=== PATIENT | female | born 1975 | race Caucasian/White ===

== ENCOUNTER → 2016-08-10 | Outpatient (CLI) | payer BC, OTHER ==
--- NOTE | 2016-08-10 15:16 | CT ---
CT CHEST FOR PULMONARY EMBOLISM. EXAMINATION TYPE: CT angio chest DATE OF EXAM: 08/10/2016 3:10 PM INDICATION: Cough x [address] DLP: 127.80 mGycm, Automated exposure control for dose reduction was used. CONTRAST: Patient injected with 54 mL of Omnipaque 350. COMPARISON: NONE TECHNIQUE: CT of the chest is performed on a spiral scan at 2 mm thick sections. Study is performed with intravenous contrast timed for evaluation for pulmonary embolism. This will limit additional po rtions of the evaluation. 3-D MIP images reconstructed by the technologist are reviewed on the compu ter in the coronal and sagittal planes. FINDINGS: No persistent filling defects are evident to suggest an acute pulmonary embolism. Bilateral breast prostheses are present. No mediastinal or hilar adenopathy enlarged by CT criteria is evident. The ascending aorta diameter at the level of the main pulmonary artery is 3.2 cm. The main pulmonary artery diameter at the bifur cation is 2.2 cm. Lung windows are clear. Limited CT section through the upper abdomen are unremarkable. IMPRESSIONS: 1. No acute pulmonary embolism.
== END ==
LOC: RADCTMAIN 14:49
PROVIDERS: ATTEND Family Medicine
DX: R05 Cough (principal); R06.02 Shortness of breath; R00.0 Tachycardia, unspecified
CPT/HCPCS: 71275; Q9967

== ENCOUNTER → 2016-09-28 | Day surgery (SDC) | payer BC ==
[2016-09-24 08:44] VITALS: BMI 24.5
[~2016-09-28] MED LIST: SODIUM CHLORIDE 0.9% 1,000 ML IV SCH
[2016-09-28 08:44] VITALS: RESP 18
[2016-09-28 13:03] VITALS: BP 140/75; PULSE 68; TEMP 98.2
--- NOTE | 2016-09-28 14:30 | P.PCN ---
Preoperative Diagnosis: Twelve-lead ECG report Sinus rhythm, sinus arrhythmia, normal SC, narrow QRS, normal ST segments, normal QT interval, 78 bpm Tilt table test report Baseline blood pressure 135/69 mmHg, Baseline heart rate 87 beats a minute Patient underwent standard tilt table testing. No change in heart rate a blood pressure no neurocardiogenic syncope no evidence for orthostatic intolerance or dysautonomia Baseline heart rates in the 80s upright heart rates between 90 bpm and 110 beats a minute, asymptomatic Normal heart rate and blood pressure response to upright tilting Impression Resting heart rates are well controlled with nadolol 30 mg by mouth daily Patient has a history of inappropriate sinus tachycardia. This appears well controlled on nadolol at this time There is no evidence for orthostatic intolerance There is no evidence for neurocardiogenic syncope If nadolol feels in the future, IVABRADINE should be considered Postoperative Diagnosis: Procedure(s) Performed: Implants: Anesthesia: none Disposition: same day Indications for Procedure: Operative Findings: Description of Procedure:
--- NOTE | 2016-09-28 15:27 | LTR ---
September 28, 2016 RE: Aileen Gomez Dear Max; I had the pleasure of seeing Aileen Gomez in electrophysiology followup. As you know, Aileen has a history consistent with inappropriate sinus tachycardia. She is on Nadolol and was complaining of palpitations. She was brought in for a tilt table test. The tilt table test showed that her resting heart rates are very well-controlled in the 70s and 80s. There is no evidence for neurocardiogenic syncope. There was no evidence for orthostatic intolerance or dysautonomia. I have suggested that she continue to use Nadolol at 30 mg p.o. daily, which is her current dose and it seems to be controlling her symptoms as well as resting heart rates quite well. Thank you for entrusting me with the care of your patient. Warm regards. Sincerely, AMANDA AVERY MD
== END ==
LOC: CATHEP 08:23
PROVIDERS: ATTEND Internal Medicine Clinical Cardiac Electrophysiology
DX: R00.0 Tachycardia, unspecified (principal); I10 Essential (primary) hypertension; Z79.899 Other long term (current) drug therapy
CPT/HCPCS: 81025; 93005; 93660

== ENCOUNTER → 2016-11-25 | Outpatient (CLI) | payer BC | END | disposition home or self-care (01) | LOC: LABWHC1 13:45 | PROVIDERS: ATTEND Otolaryngology | DX: J30.89 Other allergic rhinitis (principal) | CPT/HCPCS: 36415 ==

== ENCOUNTER → 2016-12-22 | Outpatient (CLI) | payer BC ==
[2016-12-24 12:07] LABS: Crab IgE <0.35 kU/L (<0.35); Crab IgE Class CLASS 0; Lettuce IgE Class CLASS 0
[2016-12-24 12:08] LABS: Pork IgE Class CLASS 0
[2016-12-24 12:09] LABS: Beef IgE <0.35 kU/L (<0.35); Beef IgE Class CLASS 0; Salmon IgE <0.35 kU/L (<0.35); Salmon IgE Class CLASS 0
[2016-12-24 12:11] LABS: Celery IgE <0.35 kU/L (<0.35); Celery IgE Class CLASS 0; Chicken IgE Class CLASS 0; Gluten IgE Class CLASS 0; Lobster IgE <0.35 kU/L (<0.35); Lobster IgE Class CLASS 0; Oat IgE Class CLASS 0; Onion IgE <0.35 kU/L (<0.35); Onion IgE Class CLASS 0; Yeast Bakers/Brew IgE <0.35 kU/L (<0.35); Yeast Bakers/Brew IgE Class CLASS 0
[2016-12-24 12:12] LABS: Chocolate IgE Class CLASS 0; Cow's Milk IgE Class CLASS 0; Egg White IgE <0.35 kU/L (<0.35); Latex IgE Class CLASS 0; Peanut IgE <0.35 kU/L (<0.35); Potato IgE <0.35 kU/L (<0.35); Potato IgE Class CLASS 0; Soybean IgE <0.35 kU/L (<0.35)
[2016-12-24 12:13] LABS: Coffee IgE <0.35 kU/L (<0.35); Coffee IgE Class CLASS 0; Tea IgE <0.35 kU/L (<0.35); Tea IgE Class CLASS 0
== END | disposition home or self-care (01) ==
LOC: LABWHC1 11:44
PROVIDERS: ATTEND Otolaryngology
DX: L50.0 Allergic urticaria (principal)
CPT/HCPCS: 36415; 86003

== ENCOUNTER → 2017-01-30 | Outpatient (CLI) | payer BC ==
--- NOTE | 2017-01-30 11:21 | MR ---
EXAMINATION TYPE: MR brain wo/w con DATE OF EXAM: 01/30/2017 COMPARISON: NONE HISTORY: EDGE, PAIN AND NUMBNESS ON LEFT SIDE OF HEAD TECHNIQUE: Multiplanar, multisequence images of the brain and brainstem is performed without and with IV contras t, utilizing 6 mL intravenous Gadavist . FINDINGS: Diffusion weighted images demonstrate no evidence of a recent infarct or other diffusion ab normality. There is no extra-axial fluid collection or significant white matter signal abnormality. The ventricular system and cisternal spaces are normal in size and appearance. The brain volume is age appropriate. Midline structures demonstrate normal morphology. The craniocervical junction appears within normal limits. Post contrast images demonstrate no abnormal enhancement. The dural venous sinuses appear pa tent. There is mild chronic sinusitis and the globes are intact. IMPRESSION: 1. Mild chronic sinusitis.
== END | disposition home or self-care (01) ==
LOC: RADMRIMAIN 09:06
PROVIDERS: ATTEND Nurse Practitioner Family
DX: R42 Dizziness and giddiness (principal); G31.84 Mild cognitive impairment of uncertain or unknown etiology; R51 Headache
CPT/HCPCS: 70553; A9581

== ENCOUNTER → 2017-06-21 | Outpatient (CLI) | payer BC ==
[2017-06-22 11:43] LABS: Alt. alternata IgE Class CLASS III; Asperg. fumagatus IgE <0.35 kU/L (<0.35); Asperg. fumagatus IgE Class CLASS 0; Bermuda Grass IgE <0.35 kU/L (<0.35); Birch(Com.Silvr) IgE <0.35 kU/L (<0.35); Birch(Com.Silvr) IgE Class CLASS 0; Cat Epith & Dander IgE <0.35 kU/L (<0.35); Cat Epith & Dander IgE Class CLASS 0; Clad herbarum IgE <0.35 kU/L (<0.35); Cockroach IgE <0.35 kU/L (<0.35); Cottonwood IgE <0.35 kU/L (<0.35); Dermato. Pteronyssinus IgE 9.84 kU/L (<0.35); Dermato. farinae IgE 6.88 kU/L (<0.35); Dermato. farinae IgE Class CLASS III; Dog Dander IgE <0.35 kU/L (<0.35); Elm IgE <0.35 kU/L (<0.35); Maple (Box Elder) IgE <0.35 kU/L (<0.35); Maple (Box Elder) IgE Class CLASS 0; Mountain Cedar IgE <0.35 kU/L (<0.35); Mountain Cedar IgE Class CLASS 0; Mouse Urine IgE Class CLASS 0; Nettle IgE <0.35 kU/L (<0.35); Nettle IgE Class CLASS 0; Oak IgE <0.35 kU/L (<0.35); Penicillium notatum IgE Class CLASS II; Rough Marshelder IgE <0.35 kU/L (<0.35); Rough Marshelder IgE Class CLASS 0; Timothy Grass IgE <0.35 kU/L (<0.35); White Ash IgE Class CLASS 0
[2017-06-29 19:53] LABS: Alternaria Alternata IgG < 2.0 mcg/mL (< 13.6); Aspergillus fumigatus IgG Not detected (Not detected); Aureobasidium pullulans IgG 2.4 mcg/mL (< 13.6); Cladosporium herbarium IgG 6.7 mcg/mL (< 14.7); Phoma ssp. IgG 2.9 mcg/mL (< 6.6); Saccaharomospora viridis Not detected (Not detected); Saccaharopoly. rectivirgula Not detected (Not detected)
== END | disposition home or self-care (01) ==
LOC: LABWHC1 16:57
PROVIDERS: ATTEND Internal Medicine Sleep Medicine
DX: B44.81 Allergic bronchopulmonary aspergillosis (principal)
CPT/HCPCS: 36415; 82785; 86001; 86003; 86606; 86609

== ENCOUNTER → 2017-07-13 | Outpatient (CLI) | payer BC ==
[2017-07-13 17:36] LABS: Basophils # (A) 0.1 k/uL (0-0.2); Basophils % (A) 1 %; Eosinophils # (A) 0.2 k/uL (0-0.7); Eosinophils % (A) 3 %; HCT 42.5 % (34.0-46.0); HGB 14.5 gm/dL (11.4-16.0); Lymphocytes # (A) 2.6 k/uL (1.0-4.8); Lymphocytes % (A) 29 %; MCH 29.8 pg (25.0-35.0); MCHC 34.1 g/dL (31.0-37.0); MCV 87.5 fL (80.0-100.0); Mean Platelet Volume 6.6; Monocytes # (A) 0.6 k/uL (0-1.0); Monocytes % (A) 7 %; Neutrophils # (A) 5.4 k/uL (1.3-7.7); Neutrophils % (A) 59 %; Platelet Count 273 k/uL (150-450); RBC 4.85 m/uL (3.80-5.40); RDW 12.9 % (11.5-15.5)
== END | disposition home or self-care (01) ==
LOC: LABWHC1 17:12
PROVIDERS: ATTEND Internal Medicine Sleep Medicine
DX: J45.50 Severe persistent asthma, uncomplicated (principal)
CPT/HCPCS: 36415; 85025

== ENCOUNTER 2017-07-14 12:25 | Day surgery (SDC) | payer BC ==
[2017-07-13 11:19] VITALS: BMI 25.4
[~2017-07-14 12:25] MED LIST changes: +LACTATED RINGERS 1,000 ML IV SCH; +Pre Op ABX Message 1 EACH MISC MISCELLANE ONE; -SODIUM CHLORIDE 0.9% 1,000 ML IV SCH
[2017-07-14] MEDS ORDERED: LIDOCAINE 1% 20 ML VIAL (10MG/ML) FOR IV START INTRADERMA ONE (12:31)
[2017-07-14 12:42] VITALS: TEMP 97.3
[2017-07-14] MEDS ORDERED: PROPOFOL 10 MG/ML 20 ML VIAL IV ONE (13:45)
[2017-07-14] MEDS ORDERED: MIDAZOLAM 2 MG/2 ML VIAL ONE (13:45)
[2017-07-14] MEDS ORDERED: LIDOCAINE 1% INJ 10MG/ML (20 ML MDV) ONE (13:45)
[2017-07-14 14:39] VITALS: BP 120/68; PULSE 84; RESP 18
--- NOTE | 2017-07-14 20:33 | P.PCN ---
Date of Procedure: 07/14/17 Preoperative Diagnosis: Recurrent pneumonia, chronic cough and shortness of breath, multiple courses of antibiotics and the steroids in the past Postoperative Diagnosis: As above Procedure(s) Performed: #1 bronchoscopy, #2 bronchoalveolar lavage Anesthesia: other Surgeon: Milton Garcia Estimated Blood Loss (ml): 0 Condition: stable Disposition: same day Indications for Procedure: Recurrent pneumonia, chronic cough and shortness of breath and wheezing, history of multiple course of antibiotics and steroid use Operative Findings: As below Description of Procedure: Bronchoscope was passed through the right nares, the vocal cords were normal structure and function tip of the scope was has beyond the vocal cords diffuse right heme and edema was present in tracheobronchial tree, scattered mucous plugs were seen no endobronchial mass or lesion was identified tip of the scope was wedged in the right upper lobe BAL was performed followed by BAL of the right lower lobe and left lower lobe, patient tolerated the procedure well no complication noted
== END 2017-07-14 14:56 | disposition home or self-care (01) ==
LOC: ORWHC2ENDO 12:25
PROVIDERS: ATTEND Internal Medicine Sleep Medicine
DX: J18.9 Pneumonia, unspecified organism (principal); J45.909 Unspecified asthma, uncomplicated; G47.00 Insomnia, unspecified; F41.1 Generalized anxiety disorder; R00.0 Tachycardia, unspecified; M41.9 Scoliosis, unspecified; I10 Essential (primary) hypertension; K21.9 Gastro-esophageal reflux disease without esophagitis; Z79.51 Long term (current) use of inhaled steroids; Z79.899 Other long term (current) drug therapy; Z88.8 Allergy status to other drugs, medicaments and biological substances; Z91.030 Bee allergy status; Z87.891 Personal history of nicotine dependence
CPT/HCPCS: 81025; 87798 ×4; 87541; 87496; 87498; 87529 ×2; 88108; 88305; 87252; 87502; 87634; 87070; 87205; 87116; 87102; 87206; 87299; 31624; J2250; J2001; J2704

== ENCOUNTER → 2017-07-19 | Outpatient (CLI) | payer BC ==
--- NOTE | 2017-07-19 14:54 | US ---
EXAMINATION TYPE: US thyroid st tissue head/neck DATE OF EXAM: 07/19/2017 COMPARISON: Thyroid ultrasound March 13, 2016. CLINICAL HISTORY: E07.9 Disorder of thyroid. GLAND SIZE: Right Lobe: 4.0 x 1.6 x 1.6 cm Overall Parenchyma: homogenous Left Lobe: 3.8 x 1.2 x 1.3 cm Overall Parenchyma: homogeneous Isthmus Thickness: 0.4 cm NODULES RIGHT: # of nodules measured on right: 0 LEFT: # of nodules measured on left: 0 ISTHMUS: # of nodules measured in the isthmus: 0 Bilateral neck scanned, no evidence of lymphadenopathy. Internal, mobile echoes are noted in left IJV with primarily reverse color flow and reverse Doppler V enous Flow is documented and as compared to normal flow direction in Right IJV. Radiologist was tristian CRISTOBAL Thyroid gland is somewhat small in size and homogeneous in appearance without suspicious nodule. IMPRESSION: Small size thyroid redemonstrated and stable. No suspicious nodules. Incidental abnormal reversed blo od flow in left internal jugular vein. Complete left upper extremity venous ultrasound is ordered to further evaluate. A Yellow level critical message alert has been initiated for Sravan Sam III, MD via the [employer] Critical Results System on 07/19/2017 2:51 PM. This message alert has been sent to Sravan Sam III, MD via the preferences provided by the clinician for the receipt of Radiology Critical Findings. Message ID [id number].
--- NOTE | 2017-07-19 15:32 | US ---
EXAMINATION TYPE: US venous doppler duplex UE LT DATE OF EXAM: 07/19/2017 COMPARISON: CTA chest August 10, 2016. MRI brain January 30, 2017. Thyroid ultrasound earlier today. CLINICAL HISTORY: I82.622. IJV internal echoes with reverse flow direction; coughing x 1 year, histor y of inappropriate sinus tachycardia, severe headache today per patient. Abnormal thyroid ultrasound. SIDE PERFORMED: left per Dr Shepherd Left Arm: non occluding wall echoes at lower IJV and may be at valve site with internal echoes noted moving cephalad (Rouleaux effect) in left IJV. Color flow direction is reversed for majority of Color flow observation. Pulsed Wave Doppler is reversed flow and is compared to normal flow direction in R ight IJV. Remainder of left upper extremity venous system show satisfactory blood flow, phasicity, and compress ibility. IMPRESSION: Possible external compression or more central stenosis in the left central thoracic veins. Patient i s asymptomatic. Consider contrast-enhanced chest CT to further evaluate. Case discussed with primary care physician at time of dictation. Patient to have short-term follow-up in office.
== END | disposition home or self-care (01) ==
LOC: RADUSWWP 13:35
PROVIDERS: ATTEND Family Medicine
DX: E07.9 Disorder of thyroid, unspecified (principal); R93.8 Abnormal findings on diagnostic imaging of other specified body structures
CPT/HCPCS: 76536; 87070; 87102; 87116; 87205; 87206; 87252; 87496; 87498; 87502; 87529; 87634; 87798

== ENCOUNTER 2017-07-23 13:28 | Inpatient (IN) | payer BC ==
[2017-07-23 14:03] LABS: Glucose,Whole Blood 122 mg/dL (75-99)
[2017-07-23] MEDS ORDERED: SODIUM CHLORIDE 0.9% 1,000 ML IV STA ×2 (14:08)
[2017-07-23] MEDS ORDERED: SODIUM CHLORIDE 0.9% 500 ML IV STA (14:08)
[2017-07-23] MEDS ORDERED: LORazepam 2 MG/ML INJ IV STA (14:08)
[2017-07-23] MEDS ORDERED: RX INFO: IV CONTRAST WAS GIVEN 1 EACH MISC MISCELLANE PRN (14:09)
[2017-07-23] MEDS ORDERED: levETIRAcetam IV 1,500 MG in SALINE 1 100ML.BAG IVPB STA (14:09)
[2017-07-23] MEDS ORDERED: diphenhydrAMINE 50 MG/ML 1 ML VIAL IVP STA (14:10)
[2017-07-23] MEDS ORDERED: FAMOTIDINE 20 MG/2 ML VIAL IV STA (14:10)
[2017-07-23 14:42] LABS: Basophils # (A) 0.1 k/uL (0-0.2); Basophils % (A) 1 %; Eosinophils # (A) 0.1 k/uL (0-0.7); Eosinophils % (A) 1 %; HCT 43.6 % (34.0-46.0); HGB 14.5 gm/dL (11.4-16.0); Lymphocytes # (A) 1.7 k/uL (1.0-4.8); Lymphocytes % (A) 18 %; MCH 29.8 pg (25.0-35.0); MCHC 33.4 g/dL (31.0-37.0); MCV 89.3 fL (80.0-100.0); Mean Platelet Volume 8.1; Monocytes # (A) 0.5 k/uL (0-1.0); Monocytes % (A) 5 %; Neutrophils # (A) 6.8 k/uL (1.3-7.7); Neutrophils % (A) 73 %; Platelet Count 280 k/uL (150-450); RBC 4.88 m/uL (3.80-5.40); RDW 12.8 % (11.5-15.5); WBC 9.3 k/uL (3.8-10.6)
[2017-07-23 14:51] LABS: Partial Thromboplastin Time 22.8 sec (22.0-30.0); Prothrombin Time 10.1 sec (9.0-12.0)
[2017-07-23 14:59] LABS: ALT 24 U/L (9-52); AST 23 U/L (14-36); Alkaline Phosphatase 71 U/L (38-126); Anion Gap 23 mmol/L; Blood Urea Nitrogen 11 mg/dL (7-17); Calcium 10.4 mg/dL (8.4-10.2); Carbon Dioxide 15 mmol/L (22-30); Chloride 103 mmol/L (98-107); Glucose 127 mg/dL (74-99); Magnesium 1.9 mg/dL (1.6-2.3); Phosphorus 1.8 mg/dL (2.5-4.5); Potassium 3.7 mmol/L (3.5-5.1); Sodium 141 mmol/L (137-145); Total Bilirubin 1.1 mg/dL (0.2-1.3); Total Protein 7.9 g/dL (6.3-8.2)
[2017-07-23 15:09] LABS: Creatine Kinase 66 U/L (30-135)
[2017-07-23 15:21] LABS: Creatine Kinase MB 0.2 ng/mL (0.0-2.4); Troponin I <0.012 ng/mL (0.000-0.034)
--- NOTE | 2017-07-23 15:30 | ED ---
General Adult HPI - General Chief complaint: Dizziness Stated complaint: Elevated BP Time Seen by Provider: 07/23/17 13:49 Source: patient, RN notes reviewed, old records reviewed Mode of arrival: ambulatory Limitations: no limitations - History of Present Illness Initial comments: This is a 42-year-old female the ER for evaluation regarding unresponsiveness. Patient not acting appropriately here in the hospital. Her patient a CAT scan earlier today to evaluate thyroid he thinks, patient is STILL unresponsive. Patient has no history of seizure, did have headache this morning when she awoke. Patient is unable to give history, history obtained from - Related Data Home Medications Medication Instructions Recorded Confirmed ALPRAZolam [Xanax] 0.25 mg PO HS PRN 09/24/16 07/23/17 Levocetirizine Dihydrochloride 5 mg PO HS 09/24/16 07/23/17 [Xyzal] Montelukast [Singulair] 10 mg PO HS 09/24/16 07/23/17 Norethindrone AC-Eth Estradiol 1 each PO HS 09/24/16 07/23/17 [Loestrin 21 1-20 Tablet] Albuterol Sulfate [Proair 1 puff PO QID PRN 07/13/17 07/23/17 Respiclick] Diltiazem HCl 30 mg PO BID PRN 07/13/17 07/23/17 FLUoxetine HCL [PROzac] 20 mg PO DAILY 07/13/17 07/23/17 Allergies Allergy/AdvReac Type Severity Reaction Status Date / Time No Known Allergies Allergy Verified 07/23/17 14:27 Review of Systems ROS Statement: Those systems with pertinent positive or pertinent negative responses have been documented in the HPI. ROS Other: All systems not noted in ROS Statement are negative. Past Medical History Past Medical History: No Reported History Additional Past Medical History / Comment(s): CHEST PAIN, RAPID HEARTBEAT, COUGH AND SHORTNESS OF BREATH-POSSIBLE LUNGS History of Any Multi-Drug Resistant Organisms: None Reported Past Surgical History: Adenoidectomy, Breast Surgery, Section Additional Past Surgical History / Comment(s): BILATERAL CARPAL TUNNEL RELEASE, SINUS SX, BILATERAL BREASTS IMPLANTS Past Anesthesia/Blood Transfusion Reactions: No Reported Reaction Past Psychological History: Anxiety Smoking Status: Former smoker Past Alcohol Use History: None Reported Past Drug Use History: None Reported - Past Family History Mother Family Medical History: No Reported History General Exam Limitations: altered mental status General appearance: alert, in no apparent distress Head exam: Present: atraumatic, normocephalic, normal inspection Eye exam: Present: normal appearance, PERRL, EOMI. Absent: scleral icterus, conjunctival injection, periorbital swelling ENT exam: Present: normal exam, mucous membranes moist Neck exam: Present: normal inspection. Absent: tenderness, meningismus, lymphadenopathy Respiratory exam: Present: normal lung sounds bilaterally. Absent: respiratory distress, wheezes, rales, rhonchi, stridor Cardiovascular Exam: Present: normal rhythm, tachycardia, normal heart sounds. Absent: systolic murmur, diastolic murmur, rubs, gallop, clicks GI/Abdominal exam: Present: soft, normal bowel sounds. Absent: distended, tenderness, guarding, rebound, rigid Extremities exam: Present: normal inspection, full ROM, normal capillary refill. Absent: tenderness, pedal edema, joint swelling, calf tenderness Back exam: Present: normal inspection Neurological exam: Present: alert, oriented X3, CN II-XII intact Psychiatric exam: Present: normal affect, normal mood Skin exam: Present: warm, dry, intact, normal color. Absent: rash Course Vital Signs 07/23/17 07/23/17 13:31 16:11 Temperature 98.2 F Pulse Rate 135 H 89 Respiratory 28 H 18 Rate Blood Pressure 131/63 116/63 O2 Sat by Pulse 100 99 Oximetry - Reevaluation(s) Reevaluation #1: 07/23/17 17:09 Patient's seizure-like activity unresponsiveness did resolve after about 20 or so minutes. Patient returned to baseline mental state Reevaluation #2: 07/23/17 17:09 Patient does admit to anxiety over ultrasound showing reverse flow through her jugular vein EKG Findings - EKG Comments: EKG Findings:: EKG shows normal sinus rhythm rate of 99, [place] 1:30, QRS 80, QTC 472 Medical Decision Making - Medical Decision Making 42 female to the ER with prolonged Seizure-like activity. Patient does admit to significant headache throughout the day. Patient to baseline at this time. We'll admit for neurological evaluation. - Lab Data Result diagrams: 07/23/17 14:08 07/23/17 14:08 Lab Results 03/07/23/17 07/23/17 Range/Units 14:01 14:08 14:08 WBC (3.8-10.6) k/uL RBC (3.80-5.40) m/uL Hgb (11.4-16.0) gm/dL Hct (34.0-46.0) % MCV (80.0-100.0) fL MCH (25.0-35.0) pg MCHC (31.0-37.0) g/dL RDW (11.5-15.5) % Plt Count (150-450) k/uL Neutrophils % % Lymphocytes % % Monocytes % % Eosinophils % % Basophils % % Neutrophils # (1.3-7.7) k/uL Lymphocytes # (1.0-4.8) k/uL Monocytes # (0-1.0) k/uL Eosinophils # (0-0.7) k/uL Basophils # (0-0.2) k/uL PT (9.0-12.0) sec INR (<1.2) APTT (22.0-30.0) sec Sodium 141 (137-145) mmol/L Potassium 3.7 (3.5-5.1) mmol/L Chloride 103 (98-107) mmol/L Carbon Dioxide 15 L (22-30) mmol/L Anion Gap 23 mmol/L BUN 11 (7-17) mg/dL Creatinine 0.70 (0.52-1.04) mg/dL Est GFR (CKD-EPI)AfAm >90 (>60 ml/min/1.73 sqM) Est GFR (CKD-EPI)NonAf >90 (>60 ml/min/1.73 sqM) Glucose 127 H (74-99) mg/dL POC Glucose (mg/dL) 122 H (75-99) mg/dL POC Glu Tester Compressed Gases ID [place] Plasma Lactic Acid Arvind (0.7-2.0) mmol/L Calcium 10.4 H (8.4-10.2) mg/dL Phosphorus 1.8 L (2.5-4.5) mg/dL Magnesium 1.9 (1.6-2.3) mg/dL Total Bilirubin 1.1 (0.2-1.3) mg/dL AST 23 (14-36) U/L ALT 24 (9-52) U/L Alkaline Phosphatase 71 (38-126) U/L Total Creatine Kinase 66 (30-135) U/L CK-MB (CK-2) 0.2 (0.0-2.4) ng/mL CK-MB (CK-2) Rel Index 0.3 Troponin I <0.012 (0.000-0.034) ng/mL Total Protein 7.9 (6.3-8.2) g/dL Albumin 5.0 (3.5-5.0) g/dL TSH 0.937 (0.465-4.680) mIU/L Urine Color Urine Appearance (Clear) Urine pH (5.0-8.0) Ur Specific [place] (1.001-1.035) Urine Protein (Negative) Urine Glucose (UA) (Negative) Urine Ketones (Negative) Urine Blood (Negative) Urine Nitrite (Negative) Urine Bilirubin (Negative) Urine Urobilinogen (<2.0) mg/dL Ur Leukocyte Esterase (Negative) 07/23/17 07/23/17 07/23/17 Range/Units 14:08 14:08 14:08 WBC 9.3 (3.8-10.6) k/uL RBC 4.88 (3.80-5.40) m/uL Hgb 14.5 (11.4-16.0) gm/dL Hct 43.6 (34.0-46.0) % MCV 89.3 (80.0-100.0) fL MCH 29.8 (25.0-35.0) pg MCHC 33.4 (31.0-37.0) g/dL RDW 12.8 (11.5-15.5) % Plt Count 280 (150-450) k/uL Neutrophils % 73 % Lymphocytes % 18 % Monocytes % 5 % Eosinophils % 1 % Basophils % 1 % Neutrophils # 6.8 (1.3-7.7) k/uL Lymphocytes # 1.7 (1.0-4.8) k/uL Monocytes # 0.5 (0-1.0) k/uL Eosinophils # 0.1 (0-0.7) k/uL Basophils # 0.1 (0-0.2) k/uL PT 10.1 (9.0-12.0) sec INR 1.0 (<1.2) APTT 22.8 (22.0-30.0) sec Sodium (137-145) mmol/L Potassium (3.5-5.1) mmol/L Chloride (98-107) mmol/L Carbon Dioxide (22-30) mmol/L Anion Gap mmol/L BUN (7-17) mg/dL Creatinine (0.52-1.04) mg/dL Est GFR (CKD-EPI)AfAm (>60 ml/min/1.73 sqM) Est GFR (CKD-EPI)NonAf (>60 ml/min/1.73 sqM) Glucose (74-99) mg/dL POC Glucose (mg/dL) (75-99) mg/dL POC Glu Tester Compressed Gases ID Plasma Lactic Acid Arvind 3.4 H* (0.7-2.0) mmol/L Calcium (8.4-10.2) mg/dL Phosphorus (2.5-4.5) mg/dL Magnesium (1.6-2.3) mg/dL Total Bilirubin (0.2-1.3) mg/dL AST (14-36) U/L ALT (9-52) U/L Alkaline Phosphatase (38-126) U/L Total Creatine Kinase (30-135) U/L CK-MB (CK-2) (0.0-2.4) ng/mL CK-MB (CK-2) Rel Index Troponin I (0.000-0.034) ng/mL Total Protein (6.3-8.2) g/dL Albumin (3.5-5.0) g/dL TSH (0.465-4.680) mIU/L Urine Color Urine Appearance (Clear) Urine pH (5.0-8.0) Ur Specific [place] (1.001-1.035) Urine Protein (Negative) Urine Glucose (UA) (Negative) Urine Ketones (Negative) Urine Blood (Negative) Urine Nitrite (Negative) Urine Bilirubin (Negative) Urine Urobilinogen (<2.0) mg/dL Ur Leukocyte Esterase (Negative) 07/23/17 Range/Units 15:20 WBC (3.8-10.6) k/uL RBC (3.80-5.40) m/uL Hgb (11.4-16.0) gm/dL Hct (34.0-46.0) % MCV (80.0-100.0) fL MCH (25.0-35.0) pg MCHC (31.0-37.0) g/dL RDW (11.5-15.5) % Plt Count (150-450) k/uL Neutrophils % % Lymphocytes % % Monocytes % % Eosinophils % % Basophils % % Neutrophils # (1.3-7.7) k/uL Lymphocytes # (1.0-4.8) k/uL Monocytes # (0-1.0) k/uL Eosinophils # (0-0.7) k/uL Basophils # (0-0.2) k/uL PT (9.0-12.0) sec INR (<1.2) APTT (22.0-30.0) sec Sodium (137-145) mmol/L Potassium (3.5-5.1) mmol/L Chloride (98-107) mmol/L Carbon Dioxide (22-30) mmol/L Anion Gap mmol/L BUN (7-17) mg/dL Creatinine (0.52-1.04) mg/dL Est GFR (CKD-EPI)AfAm (>60 ml/min/1.73 sqM) Est GFR (CKD-EPI)NonAf (>60 ml/min/1.73 sqM) Glucose (74-99) mg/dL POC Glucose (mg/dL) (75-99) mg/dL POC Glu Tester Compressed Gases ID Plasma Lactic Acid Arvind (0.7-2.0) mmol/L Calcium (8.4-10.2) mg/dL Phosphorus (2.5-4.5) mg/dL Magnesium (1.6-2.3) mg/dL Total Bilirubin (0.2-1.3) mg/dL AST (14-36) U/L ALT (9-52) U/L Alkaline Phosphatase (38-126) U/L Total Creatine Kinase (30-135) U/L CK-MB (CK-2) (0.0-2.4) ng/mL CK-MB (CK-2) Rel Index Troponin I (0.000-0.034) ng/mL Total Protein (6.3-8.2) g/dL Albumin (3.5-5.0) g/dL TSH (0.465-4.680) mIU/L Urine Color Light Yellow Urine Appearance Clear (Clear) Urine pH 6.5 (5.0-8.0) Ur Specific [place] 1.006 (1.001-1.035) Urine Protein Negative (Negative) Urine Glucose (UA) Negative (Negative) Urine Ketones 2+ H (Negative) Urine Blood Negative (Negative) Urine Nitrite Negative (Negative) Urine Bilirubin Negative (Negative) Urine Urobilinogen <2.0 (<2.0) mg/dL Ur Leukocyte Esterase Negative (Negative) - Radiology Data Radiology results: report reviewed (CT brain negative), image reviewed Disposition Clinical Impression: New onset seizure Disposition: ADMITTED IP TO THIS [facility] Condition: Good Referrals: Sravan Sam III, MD [Primary Care Provider] - 1-2 days
[2017-07-23 15:36] LABS: Appearance,Urine Clear (Clear); Bilirubin,Urine Negative (Negative); Blood,Urine Negative (Negative); Color,Urine Light Yellow; Glucose,Urine (UA) Negative (Negative); Ketones,Urine 2+ (Negative); Leukocyte Esterase,Urine Negative (Negative); Nitrite,Urine Negative (Negative); PH, Urine 6.5 (5.0-8.0); Protein,Urine Negative (Negative); Specific Gravity,Urine 1.006 (1.001-1.035); Urobilinogen,Urine <2.0 mg/dL (<2.0)
--- NOTE | 2017-07-23 16:09 | CT ---
EXAMINATION TYPE: CT brain wo con DATE OF EXAM: 07/23/2017 COMPARISON: MRI brain January 30, 2017. HISTORY: Hypertension with new onset weakness. CT DLP: 1029.9 mGycm. Automated Exposure Control for Dose Reduction was Utilized. TECHNIQUE: CT scan of the head is performed without contrast. FINDINGS: There is no acute intracranial hemorrhage, mass effect, or midline shift identified. The ventricles and sulci are within normal limits in size. Early-white matter differentiation is [place]. The globes are intact and the visualized sinuses are clear. IMPRESSION: No acute intracranial hemorrhage or midline shift is seen. Unremarkable study.
--- NOTE | 2017-07-23 16:12 | CT ---
EXAMINATION TYPE: CT angio head neck DATE OF EXAM: 07/23/2017 HISTORY: Hypertension COMPARISON: NONE CT DLP: 274.6 mGycm. Automated Exposure Control for Dose Reduction was Utilized. TECHNIQUE: CTA scan of the neck is performed with IV Contrast, patient injected with 65 mL of Isovue 370, axial images are obtained, coronal and sagittal reformatted images are reviewed. Three-D recons tructed images are created on an independent workstation and reviewed. FINDINGS: Carotid/Vascular Structures: There is bovine type aortic arch which is normal variant. There is no si gnificant plaque in the aortic arch. The right common carotid artery shows normal origin from right b rachiocephalic artery. There is no significant plaque or stenosis in right common or internal carotid arteries including at level of carotid bulb. Right external carotid artery is patent without signifi cant stenosis. There is no significant plaque or stenosis of left common or internal carotid arteries including at l evel of left carotid bulb. There is patent left external carotid artery without significant plaque or stenosis. There is codominant vertebral basilar system. There is no significant focal stenosis in the posterior circulation. Patent posterior communicating arteries are not identified presumed hypoplastic. There is patent anterior communicating arteries seen. There is no significant focal stenosis or interval ch prince in the anterior circulation. Other: Slight dextroconvex scoliotic curvature in the upper thoracic spine is present. There is parti al visualization of subpectoral breast implants bilaterally. IMPRESSION: 1. No significant focal stenosis in common or internal carotid arteries bilaterally. 2. No aneurysmal change at level of [place].
[2017-07-23] MEDS ORDERED: ALBUTEROL NEBULIZED 2.5 MG/3 ML INHALATION PRN (17:39)
[2017-07-23] MEDS ORDERED: ALPRAZolam 0.25 MG TAB PO PRN (17:39)
[2017-07-23] MEDS ORDERED: DILTIAZEM ORAL 30 MG TAB PO PRN (17:39)
[2017-07-23] MEDS ORDERED: LORazepam 2 MG/ML INJ IV PRN (17:42)
[2017-07-23] MEDS ORDERED: LORATADINE 10 MG TAB PO SCH (21:00)
[2017-07-23] MEDS ORDERED: NORETHINDRONE AC ETH ESTRADIOL PO SCH (21:00)
[2017-07-23] MEDS ORDERED: MONTELUKAST 10 MG TAB PO SCH (21:00)
--- NOTE | 2017-07-23 21:02 | P.CNNES ---
History of Present Illness Consult date: 07/23/17 Reason for Consult: Patient admitted for new onset seizure. History of Present Illness: This patient is a 42-year-old right-handed white female who was in her usual state of health earlier this morning. Patient apparently had some abnormal thyroid function studies done that were abnormal. She was sent today for a computed tomography scan of the chest. CAT scan of the chest was completed today with and without contrast. The final impression was one ofsignificant abnormalities evident. Patient was able to go home and apparently went to the spine with her daughter and just started to feel somewhat lightheaded and short of breath. She returned home and apparently continued to have symptoms recurring in which she felt lightheaded. She was able to call her who decided to bring her to the emergency room this afternoon at about 1:30. She was seen in the ER by Dr. Segundo. She was sent for a computed tomography scan of the brain as well as a CTA angiogram of the head and neck. CAT scan of the brain was reported negative for any acute changes. Final report was a negative study. She was also sent for CTA angiogram of the head and neck which came back negative for any focal stenosis of the carotid arteries. Was a normal [place] with no evidence of any aneurysm. Apparently she was noted by her as having seizure-like activity in the ER. She had her hands clenched and was not responding to verbal commands. This episode lasted for at least 40 minutes according to the patient. She was told this by her . She did not have any tonic-clonic movements but was in a straight of tremulousness and unresponsiveness. After being given Ativan and IV Keppra in the ER she did seem to come around and was able to answer questions. Patient denies any previous history of seizures or head injury in the past. She was recently diagnosed about a year ago with inappropriate sinus tachycardia. She is following with a word processor at [facility]. She is undergone extensive evaluation of this heart condition including electrophysiological studies. She is placed on various medications for treatment. She states that she can tell when her symptoms of sinus tachycardia become overwhelming and she usually takes medication for these events. She did not have that feeling this morning when she started her day. The patient is now on Keppra and we would recommend she be maintained on Keppra 750 mg by mouth twice a day. We're recommending a routine EEG to be done tomorrow morning for further evaluation as well as MRI of the brain with and without gadolinium. We have explained [place] driving law in detail to the patient stating she cannot drive and state [facility] for her. To 6 months following any seizure activity. She is aware of this restriction. As noted she has no previous history of seizures as a young child or febrile seizures. We have recommended that she should follow- up with her word processor in regards to this recent event to see if there is any link with her cardiac abnormalities as well. Patient is now admitted and neurology is being consulted for further evaluation and recommendations. Review of Systems Constitutional: Denies chills, Denies fever Eyes: denies blurred vision, denies pain Ears, nose, mouth and throat: Denies headache, Denies sore throat Cardiovascular: Denies chest pain, Denies shortness of breath Respiratory: Denies cough Gastrointestinal: Denies abdominal pain, Denies diarrhea, Denies nausea, Denies vomiting Genitourinary: Denies dysuria, Denies hematuria Musculoskeletal: Denies myalgias Integumentary: Denies pruritus, Denies rash Neurological: Reports change in mentation, Reports convulsions, Reports seizures , Reports syncope, Denies numbness, Denies weakness Psychiatric: Denies anxiety, Denies depression Endocrine: Denies fatigue, Denies weight change Past Medical History Past Medical History: No Reported History Additional Past Medical History / Comment(s): CHEST PAIN, RAPID HEARTBEAT(sinus tachycardia), ongoing cough/sob for a year(had bronchoscopy on 07-14-17), "throbbing headaches"/hot and cold spells/fatigue. takes fish oil for [place] high cholesterol. scoliosis History of Any Multi-Drug Resistant Organisms: None Reported Past Surgical History: Adenoidectomy, Breast Surgery, Section Additional Past Surgical History / Comment(s): BILATERAL CARPAL TUNNEL RELEASE, SINUS SX, BILATERAL BREASTS IMPLANTS, bronchoscopy 07-14-17 Past Anesthesia/Blood Transfusion Reactions: No Reported Reaction Additional Past Anesthesia/Blood Transfusion Reaction / Comment(s): never had any blood transfusons Smoking Status: Former smoker - Past Family History Mother Family Medical History: Eye Disorder, Hyperlipidemia, Thyroid Disorder Additional Family Medical History / Comment(s): mac degeneration Father History Unknown: Yes Additional Family Medical History / Comment(s): dad did'nt like going to Medications and Allergies Home Medications Medication Instructions Recorded Confirmed Type ALPRAZolam [Xanax] 0.25 mg PO HS PRN 09/24/16 07/23/17 History Levocetirizine Dihydrochloride 5 mg PO HS 09/24/16 07/23/17 History [Xyzal] Montelukast [Singulair] 10 mg PO HS 09/24/16 07/23/17 History Norethindrone AC-Eth Estradiol 1 each PO HS 09/24/16 07/23/17 History [Loestrin 21 1-20 Tablet] Albuterol Sulfate [Proair 1 puff PO QID PRN 07/13/17 07/23/17 History Respiclick] Diltiazem HCl 30 mg PO BID PRN 07/13/17 07/23/17 History FLUoxetine HCL [PROzac] 20 mg PO DAILY 07/13/17 07/23/17 History Naproxen [Naprosyn] 250 mg PO TID 07/23/17 07/23/17 History Allergies Allergy/AdvReac Type Severity Reaction Status Date / Time No Known Allergies Allergy Verified 07/23/17 14:27 Physical Examination - Vital Signs Vital Signs: Vital Signs Temp Pulse Resp BP Pulse Ox 07/23/17 19:07 18 07/23/17 18:21 84 18 132/69 98 07/23/17 17:26 98.6 F 84 18 134/63 99 07/23/17 16:11 89 18 116/63 99 07/23/17 13:31 98.2 F 135 H 28 H 131/63 100 Intake and Output 07/23/17 07/23/17 07/23/17 06:59 14:59 22:59 Other: Weight 61.235 kg - Constitutional General appearance: average body habitus, cooperative - EENT EENT: PERRL, mucous membranes moist - Respiratory Respiratory: lungs clear, normal breath sounds - Cardiovascular Cardiovascular: regular rate, normal S1, normal S2 Extremities: no peripheral edema bilaterally - Gastrointestinal Gastrointestinal: normoactive bowel sounds - Integumentary Integumentary: normal - Neurologic Cranial nerve examination: PERRL, EOMI, VFF, V1/V2/V3 grossly intact, face symmetric, tongue midline, intact gag reflex, intact corneal reflex, normal palatal elevation Speech examination: intact Sensorimotor examination: intact Motor examination - right side: 4/5: biceps, triceps, wrist flexion, wrist extension, applications support specialist, hip flexors, knee extensors, dorsiflexion, toe extension (EHL) , plantarflexion Motor examination - left side: 4/5: biceps, triceps, wrist flexion, wrist extension, applications support specialist, hip flexors, knee extensors, dorsiflexion, toe extension (EHL) , plantarflexion Detailed sensory examination: intact Reflex and gait examination: intact Reflexes: 1+: ankle, bicep, knee, tricep - Musculoskeletal Musculoskeletal: no pain - Psychiatric Psychiatric: mood/affect appropriate, cooperative Results - Laboratory Findings CBC and BMP: 07/23/17 14:08 07/23/17 14:08 Abnormal Lab Findings: Abnormal Labs 07/23/17 07/23/17 07/23/17 14:01 14:08 14:08 Carbon Dioxide 15 L Glucose 127 H POC Glucose (mg/dL) 122 H Plasma Lactic Acid Arvind 3.4 H* Calcium 10.4 H Phosphorus 1.8 L Urine Ketones 07/23/17 07/23/17 15:20 18:52 Carbon Dioxide Glucose POC Glucose (mg/dL) Plasma Lactic Acid Arvind 0.6 L Calcium Phosphorus Urine Ketones 2+ H Assessment and Plan (1) New onset seizure Current Visit: Yes Status: Acute Code(s): R56.9 - UNSPECIFIED CONVULSIONS SNOMED Code(s): 60068291 (2) Inappropriate sinus tachycardia Current Visit: Yes Status: Acute Code(s): R00.0 - TACHYCARDIA, UNSPECIFIED SNOMED Code(s): 209588192 (3) Thyroid disorder Current Visit: Yes Status: Acute Code(s): E07.9 - DISORDER OF THYROID, UNSPECIFIED SNOMED Code(s): 78824205 Plan: This patient is a 42-year-old female who was admitted to the emergency room today with symptoms of new onset seizure activity. Patient was not feeling well earlier in the afternoon and was brought to the emergency room. In the ER she went into an episode of tonic posturing as well as unresponsiveness 20 verbal commands. Her episode was noted by the ER physician Dr. Rg documents the episode lasted about 20 minutes. According to the patient she was told by her that the episode lasted closer to 40 minutes in duration. She was treated with Ativan and Keppra and her symptoms did improve and she became very appropriate. She was sent for a computed tomography scan of the brain as well as CT angiogram of the head and neck both of which were negative. This patient has symptoms suggesting new onset seizure. We recommend she be maintained on Keppra 750 mg 1 by mouth twice a day. Would recommend MRI of the brain for further evaluation as well as routine EEG. Patient should follow-up with her word processor for further management of inappropriate sinus tachycardia syndrome. We will leave it up to the patient as to whether she would have cardiology consultation with Dr. Morgan. We will continue close neurological follow-up for the patient. Would recommend seizure precautions with the patient. She is advised of the [place] driving law which states she cannot drive in the state [facility] for. At 6 months following her last seizure event. She is aware of this restriction. We will continue to follow her closely during this admission. Her overall prognosis at this time remains guarded. Time with Patient: Greater than 30
--- NOTE | 2017-07-23 21:16 | HP ---
HISTORY AND PHYSICAL CHIEF COMPLAINT: New-onset seizures. HISTORY OF PRESENT ILLNESS: This 42-year-old woman with a past medical history of multiple medical issues, including recurrent cough, allergic symptoms, history of inappropriate sinus tachycardia, history of adenoidectomy, breast surgery, section, history of bilateral carpal tunnel syndrome, history of anxiety, remote history of nicotine dependence, being followed by Dr. Sam in the outpatient setting, was being evaluated for ultrasound of the neck for a nodule. Incidentally a reversal of the blood flow in the left internal jugular vein was suspected. The patient had a CT scan of the chest to rule out any intrathoracic problems. Today after the CT scan the patient was driving home and the patient had a warm feeling and subsequently she came to the ER and the patient had continuous seizures, tonic clonic, for about 45 minutes. Patient was unresponsive, according to the ER notes. There was no incontinence or any injury anywhere. The patient was admitted for further evaluation and treatment. There is no history of any fever, rigors. There is no history of any palpitation, hematochezia, melena. Patient does complain of insomnia as well as headaches. The patient has some chest and epigastric pain, also. PAST MEDICAL HISTORY: 1. History of allergic symptoms and evaluated by bronchoscopy by Dr. Garcia; and also being evaluated by Dr. Rodgers for allergy shots. 2. History of chest pains, warm feelings and dizziness. 3. Adenoidectomy. 4. Breast surgery. 5. Anxiety. MEDICATIONS PRIOR TO ADMISSION: 1. Naprosyn 250 mg p.o. t.i.d. 2. Loestrin 1 p.o. at bedtime. 3. Singulair 10 mg at bedtime. 4. Xyzal 5 mg at bedtime. 5. Prozac 20 mg p.o. daily. 6. Diltiazem 30 mg b.i.d. p.r.n. 7. ProAir 1 puff q.i.d. p.r.n. 8. Xanax 0.25 at bedtime p.r.n. ALLERGIES: NONE. FAMILY HISTORY: History of hyperlipidemia, history of hypothyroidism, macular degeneration, eye disorders. SOCIAL HISTORY: alcohol. Previous history of smoking. REVIEW OF SYSTEMS: ENT: No diminished hearing. No diminished vision. CARDIOVASCULAR SYSTEM: No angina, palpitations. RESPIRATORY SYSTEM: No cough, hemoptysis. GI: No nausea, vomiting. : No dysuria or retention. NERVOUS SYSTEM: As mentioned earlier. ALLERGY/IMMUNOLOGY: As mentioned earlier. MUSCULOSKELETAL: As mentioned earlier. HEMATOLOGY/ONCOLOGY: No history of anemia. ENDOCRINE: No history of diabetes, hypothyroidism. CONSTITUTIONAL: As mentioned earlier. DERMATOLOGY: Negative. RHEUMATOLOGY: Negative. PSYCHIATRY: As mentioned earlier. PHYSICAL EXAMINATION: Patient is alert, oriented x3. Pulse is 89, blood pressure 116/63, respiration 18, temperature 98.2, pulse ox 99% on room air. HEENT: Conjunctivae normal. Oral mucosa moist. NECK: No jugular venous distention. No carotid bruit. No lymph node enlargement. CARDIOVASCULAR SYSTEM: S1, S2 muffled. No S3. No S4. RESPIRATORY SYSTEM: Breath sounds diminished at the bases. No rhonchi. No crackles. ABDOMEN: Soft, non-tender. No mass palpable. LEGS: No edema. No swelling. NERVOUS SYSTEM: Higher functions as mentioned earlier. Moves all 4 limbs. No focal motor or sensory deficit. LYMPHATICS: No lymph node palpable in neck, axillae or groin. SKIN: No ulcer, rash, bleeding. LABS: CBC within normal limits. Sodium 140, potassium 3.7, glucose 127, plasma lactic acid 3.4. Calcium is 10.4, phosphorus 1.8. ASSESSMENT: 1. New-onset seizures for evaluation. 2. Lactic acidosis, present on admission. 3. Increased random blood sugar. 4. History of inappropriate sinus tachycardia. 5. History of headaches. 6. History of recurrent cough and pneumonia. 7. History of allergies to dust and mold. 8. History of carpal tunnel syndrome. 9. History of anxiety. 10.Remote history of nicotine dependence. RECOMMENDATIONS AND DISCUSSION: In this 42-year-old woman who presented with multiple complex medical issues, we will monitor the patient closely, continue the current medications, continue with symptomatic treatment. Neurology evaluation. Otherwise, EEG, neuro checks. The patient has multiple symptomatology at this time. I would review the old records and continue to monitor. Prognosis guarded. Further recommendations to follow. A copy of this dictation is being forwarded to Dr. Sam, who is the primary physician. MMODL / IJN: [id number] /
[2017-07-23] MEDS ORDERED: NAPROXEN 250 MG TAB PO SCH (22:00)
[2017-07-23] MEDS: NAPROXEN 250 MG TAB PO SCH (22:57)
[2017-07-24] MEDS: SODIUM CHLORIDE 0.9% 1,000 ML IV SCH ×2 (04:15→08:24)
[2017-07-24 06:34] VITALS: BP 121/68; PULSE 77; RESP 16; TEMP 98.3
[2017-07-24] MEDS: NAPROXEN 250 MG TAB PO SCH (08:23)
[2017-07-24 08:57] LABS: Basophils % (A) 1 %; Eosinophils # (A) 0.2 k/uL (0-0.7); Eosinophils % (A) 4 %; HCT 38.4 % (34.0-46.0); HGB 12.9 gm/dL (11.4-16.0); Lymphocytes # (A) 1.3 k/uL (1.0-4.8); Lymphocytes % (A) 32 %; MCHC 33.6 g/dL (31.0-37.0); MCV 89.2 fL (80.0-100.0); Mean Platelet Volume 6.9; Monocytes # (A) 0.3 k/uL (0-1.0); Monocytes % (A) 6 %; Neutrophils # (A) 2.3 k/uL (1.3-7.7); Neutrophils % (A) 54 %; Platelet Count 210 k/uL (150-450); RDW 12.9 % (11.5-15.5); WBC 4.2 k/uL (3.8-10.6)
[2017-07-24] MEDS ORDERED: FLUoxetine HCL 20 MG CAP PO SCH (09:00)
[2017-07-24] MEDS ORDERED: LACTOBACILLUS ACIDOPH & BULGAR 1 EACH PACKET PO SCH (09:00)
[2017-07-24 09:05] LABS: Anion Gap 12 mmol/L; Blood Urea Nitrogen 9 mg/dL (7-17); C Reactive Protein 7.7 mg/L (<10.0); Carbon Dioxide 23 mmol/L (22-30); Chloride 108 mmol/L (98-107); Creatine Kinase 56 U/L (30-135); Glucose 109 mg/dL (74-99); Potassium 3.8 mmol/L (3.5-5.1); Sodium 143 mmol/L (137-145)
[2017-07-24 10:08] LABS: Erythrocyte Sedimentation Rate 2 mm/hr (0-20)
--- NOTE | 2017-07-24 10:18 | US ---
EXAMINATION TYPE: US venous doppler duplex UE LT DATE OF EXAM: 07/24/2017 COMPARISON: Previous study dated 07/19/2017. CLINICAL HISTORY: blood flow. Assess flow in IJV due to reversal of flow seen on prior exam SIDE PERFORMED: left the initial exam is performed with head elevated due to patient states she feels very dizzy when her head is flat. The flow is seen going in opposite directions in the IJV versus the CCA in multiple angeli ges. The patient requested to look with her head flat at the end of the exam, and interestingly enoug h the phenomenon of reversed flow in the IJV is reproducible, shown in images at end of exam. Left Arm: Negative for DVT IMPRESSION: 1. THIS EXAMINATION IS NEGATIVE FOR DVT IN THE LEFT UPPER EXTREMITY. 2. THERE IS NORMAL FLOW IN THE LEFT INTERNAL JUGULAR VEIN WITH THE PATIENT ERECT OF THE FLOOR VERSUS WITH THE PATIENT SUPINE. THE SIGNIFICANCE OF THIS IS UNCERTAIN. THIS HAS BEEN DEMONSTRATED PREVIOUSLY .
--- NOTE | 2017-07-24 13:38 | EEG ---
ELECTROENCEPHALOGRAM REPORT DATE OF EE07/24/2017. REFERRING PHYSICIAN: Dr. Dumas CONSULTING/INTERPRETING PHYSICIAN: Dr. Julian BLACKWOOD ELECTROENCEPHALOGRAPHIC EXAMINATION REPORT: INDICATION FOR EXAMINATION: This patient is a 42-year-old female being evaluated for new onset seizures. AGE: [age]. EEG FINDINGS: A routine 21 channel awake digital EEG recording was accomplished utilizing the 10-20 international system with bipolar and referential montages. The background activity in the most alert resting state consists of a low to medium amplitude, fairly well developed and well sustained 8 Hz activity over the posterior head region. This posterior rhythm attenuates to eye opening. There is a small amount of low amplitude 18-20 Hz beta activity seen maximally over the anterior head regions. Muscle and movement artifact was observed on a few occasions during the tracing. Hyperventilation was not performed. Photic stimulation at flash frequencies of 2-30 Hz produced a good symmetrical occipital driving response. No epileptiform discharges were seen. IMPRESSION: This EEG is normal for the patient's age. The EEG failed to reveal any focal, lateralized, or epileptiform abnormalities. Clinical correlation is recommended. MMODL / IJN: [id number] /
--- NOTE | 2017-07-24 15:48 | P.PN ---
Subjective Progress Note Date: 07/24/17 This patient is a 42-year-old female who was seen in neurology consultation yesterday for new onset seizure. Patient had an episode in the emergency room in which she was unresponsive for up to 40 minutes in duration. She was treated with Keppra and Ativan and slowly came out of this event of unresponsiveness and questionable seizure activity. Patient underwent routine EEG today which was reviewed and is normal for her age. No evidence of epileptiform discharges on this EEG recording. Patient was loaded with Keppra yesterday in the emergency room. We are recommending she needs to stay on Keppra 750 mg 1 by mouth twice a day for the next 6 months. She is to have a Keppra blood level checked in 1 week. She may follow-up in the outpatient neurology clinic in 3-4 weeks for further monitoring and follow-up regarding new -onset seizure disorder. The patient does have a history of inappropriate sinus tachycardia which she should follow-up with her shellfish dredge operator. It is unclear whether this may also have contributed to her event of seizure-like activity yesterday. She is to discuss this further with her shellfish dredge operator at [facility] in [place]. Patient is advised of the [place] driving law which states she cannot drive for appeared to 6 months due to the seizure event that was reported. She is to continue on Keppra and to have a blood level done in a week. We will continue to follow her up as outpatient and she is to schedule a follow-up in the office in 3-4 weeks. Patient to follow-up with her primary care physician in terms of thyroid disorder and vascular abnormalities. Neurologically her examination today is nonfocal. She has had no further seizure-like events since admission. Case was discussed at length with the patient and her at bedside. All their questions were answered. They' re aware of our recommendations including no driving for 6 months. We will continue to follow her progress closely during this admission. Her overall prognosis remains guarded. Objective - Vital Signs Vital signs: Vital Signs Temp 98.3 F 07/24/17 06:33 Pulse 77 07/24/17 06:33 Resp 16 07/24/17 06:33 BP 121/68 07/24/17 06:33 Pulse Ox 98 07/24/17 06:33 Intake & Output 07/23/17 07/24/17 07/24/17 18:59 06:59 18:59 Weight 61.235 kg Other: # Voids 1 # Bowel Movements 0 - Exam Physical examination: PHYSICAL EXAMINATION: Patient is resting comfortably in bed. VITAL SIGNS: Blood pressure is [121/68]. Heart rate is [77]. Respiration is [16] . Temperature is [98.3]. HEENT: Head is atraumatic, neck is supple, there were no carotid bruits. CHEST: Lungs are clear to auscultation and percussion. CARDIAC: S1, S2 normal rate and rhythm. There is no murmur. ABDOMEN: Soft and nontender. Bowel sounds are present. EXTREMITIES: There is no pedal edema. Peripheral pulses are present. Neurological examination: Patient has a nonfocal neurological examination today. - Labs CBC & Chem 7: 07/24/17 07:49 07/24/17 07:49 Labs: Abnormal Lab Results - Last 24 Hours (Table) 07/23/17 07/23/17 07/24/17 Range/Units 15:20 18:52 07:49 Chloride 108 H (98-107) mmol/L Glucose 109 H (74-99) mg/dL Plasma Lactic Acid Arvind 0.6 L (0.7-2.0) mmol/L Urine Ketones 2+ H (Negative) Microbiology - Last 24 Hours (Table) 07/23/17 15:20 Urine Culture - Preliminary Urine,Clean Catch Assessment and Plan (1) New onset seizure Status: Acute Code(s): R56.9 - UNSPECIFIED CONVULSIONS SNOMED Code(s): 26277557 (2) Inappropriate sinus tachycardia Status: Acute Code(s): R00.0 - TACHYCARDIA, UNSPECIFIED SNOMED Code(s): 875478106 (3) Thyroid disorder Status: Acute Code(s): E07.9 - DISORDER OF THYROID, UNSPECIFIED SNOMED Code( s): 91117792 Plan: This patient is a 42-year-old female who was admitted yesterday for new onset seizure. She was loaded in the ER with IV Keppra and admitted to Hospital. She underwent routine EEG today which is reviewed and is normal for her age. No evidence of any epileptiform discharges. She was treated in the ER yesterday with possible new onset seizures lasting up to 40 minutes in duration. She is now on Keppra monotherapy. We recommend that she be maintained on Keppra for at least the next 6 months. She is to continue on Keppra 750 mg 1 by mouth twice a day. She is to have an MRI of the brain done as an outpatient. She may follow-up in the outpatient neurology clinic in 3-4 weeks. She is to follow-up with her shellfish dredge operator that she has a history of inappropriate sinus tachycardia and it is unclear whether this may have triggered the recent event. She is to follow-up with her shellfish dredge operator at [facility]. Patient is advised of the [place] driving law which states she cannot drive for a period of 6 months following her last seizure. She is aware of this restriction. These details were discussed with her and her today at length the bedside. They're aware of these recommendations. We will continue close neurological follow-up for the patient. She is to schedule follow-up in the outpatient neurology clinic in 3-4 weeks. Her overall prognosis at this time remains guarded.
--- NOTE | 2017-07-25 07:33 | DS ---
DISCHARGE SUMMARY FINAL DIAGNOSES: 1. New onset seizures for evaluation. 2. Lactic acidosis present on admission. 3. Increased random blood sugar. 4. History of inappropriate sinus tachycardia. 5. History of headaches. 6. History of recurrent cough and pneumonia. 7. History of allergies to dust and mold. 8. History of carpal tunnel syndrome. 9. History of anxiety. 10.Remote history of nicotine dependence. 11.Abnormal flow in internal jugular vein. DISCHARGE DISPOSITION: The patient will be discharged in stable condition with guarded prognosis. Neurology cleared the patient for discharge. HISTORY OF PRESENT ILLNESS: This is a 42-year-old woman with a past medical history of multiple medical problems was being followed by Dr. Sam in the outpatient setting was admitted with generalized tonic seizures. Patient treated symptomatically. Keppra was initiated by Neurology. Initial Neurology workup was negative. EEG was also done by Dr. Rebeca Jordan, which showed no acute abnormality. Otherwise plasma lactic was elevated 3.4, subsequently came down to 0.6. The patient was monitored closely patient. The patient also had reversal of flow related to possible internal jugular vein and Dr. Lee was consulted and outpatient evaluation was suggested. Overall, patient is stable during the hospitalization and the patient is keen on going home and the patient will be discharged in stable condition with guarded prognosis with the following advice and medications: 1. Diet is cardiac. 2. Activity limited until followup. 3. Follow up with Dr. Sam in 2-3 days. 4. Follow up with Dr. Hipolito Jordan as advised. 5. Follow with Dr. Lee as advised. 6. Outpatient MRI. MEDICATIONS: 1. Albuterol 1 puff q.i.d. p.r.n. 2. Xanax 0.5 q.h.s. 3. Diltiazem 30 mg p.o. b.i.d. p.r.n. 4. Prozac 20 mg p.o. daily. 5. Keppra 750 p.o. b.i.d. 6. Levocetirizine 5 mg p.o. q.h.s. 7. Singular 10 mg p.o. q.h.s. 8. Naprosyn 250 mg t.i.d. 9. Norethindrone estradiol 1 q.h.s. MMODL / IJN: [id number] /
== END 2017-07-24 14:20 | disposition home or self-care (01) | DRG 101 ==
LOC: EC 13:28 → 4MS4W 17:10
PROVIDERS: ADMIT Hospitalist; ATTEND Hospitalist
DX: G40.909 Epilepsy, unspecified, not intractable, without status epilepticus (principal); E87.2 Acidosis; M41.9 Scoliosis, unspecified; E07.9 Disorder of thyroid, unspecified; R51 Headache; E78.00 Pure hypercholesterolemia, unspecified; G47.00 Insomnia, unspecified; R00.0 Tachycardia, unspecified; I99.9 Unspecified disorder of circulatory system; E78.5 Hyperlipidemia, unspecified; R73.09 Other abnormal glucose; Z79.899 Other long term (current) drug therapy; Z87.891 Personal history of nicotine dependence; Z98.82 Breast implant status; Z98.890 Other specified postprocedural states; Z91.09 Other allergy status, other than to drugs and biological substances; Z87.01 Personal history of pneumonia (recurrent)
CPT/HCPCS: 36415; 70450; 70496; 70498; 80048; 80053; 80177; 81003; 82550; 82553; 83605; 83735; 84100; 84443; 84484; 85025; 85610; 85652; 85730; 86140; 87086; 93005; 95819; 96361; 96374; 96375; 99285

== ENCOUNTER → 2017-07-23 | Outpatient (CLI) | payer BC ==
--- NOTE | 2017-07-23 08:46 | CT ---
EXAMINATION TYPE: CT chest w con DATE OF EXAM: 07/23/2017 COMPARISON: Prior CT chest 08/10/2016 HISTORY: Abnormal results of thyroid US CT DLP: 575 mGycm Automated exposure control for dose reduction was used. CONTRAST: CT scan of the chest is performed with IV Contrast, patient injected with 100 mL of Isovue 300. FINDINGS: LUNGS: The lungs are grossly clear, there is no concerning parenchymal mass or nodule identified, rig ht upper lobe apical subpleural nodule posterior laterally is stable and is likely postinflammatory. There is no pleural effusion or pneumothorax seen. The tracheobronchial tree is patent. MEDIASTINUM: There are no greater than 1 cm hilar or mediastinal lymph nodes. No pericardial effusi on is seen. AORTA: No additional significant abnormality is seen. OTHER: Breast prostheses are present bilaterally. There is a focal area of low-attenuation within th e left lobe of the liver medial segment measuring 2.3 cm with nodular enhancement compatible with hem angioma. Focal low density in the lateral segment of the left lobe measures 2 cm and is compatible wi th cyst. There is questionable distal esophageal thickening, cannot exclude a hiatal hernia. Suspect an underlying scoliosis of the thoracic spine. IMPRESSION: No significant abnormalities evident
== END | disposition home or self-care (01) ==
LOC: RADCTMAIN 07:30
PROVIDERS: ATTEND Family Medicine
DX: R94.6 Abnormal results of thyroid function studies (principal)
CPT/HCPCS: 71260; Q9967

== ENCOUNTER → 2017-08-17 | Outpatient (CLI) | payer BC | END | disposition home or self-care (01) | LOC: LABWHC1 07:49 | PROVIDERS: ATTEND Psychiatry & Neurology Neurology | DX: R56.9 Unspecified convulsions (principal) | CPT/HCPCS: 36415; 80177 ==

== ENCOUNTER → 2018-01-13 | Outpatient (CLI) | payer BC ==
[2018-01-13 17:46] LABS: Basophils # (A) 0.1 k/uL (0-0.2); Basophils % (A) 1 %; Eosinophils # (A) 0.3 k/uL (0-0.7); Eosinophils % (A) 4 %; HGB 13.9 gm/dL (11.4-16.0); Lymphocytes # (A) 2.5 k/uL (1.0-4.8); Lymphocytes % (A) 37 %; MCH 30.6 pg (25.0-35.0); MCHC 33.1 g/dL (31.0-37.0); MCV 92.3 fL (80.0-100.0); Mean Platelet Volume 6.9; Monocytes # (A) 0.4 k/uL (0-1.0); Monocytes % (A) 6 %; Neutrophils # (A) 3.4 k/uL (1.3-7.7); Neutrophils % (A) 51 %; Platelet Count 228 k/uL (150-450); RBC 4.55 m/uL (3.80-5.40); RDW 12.6 % (11.5-15.5); WBC 6.7 k/uL (3.8-10.6)
== END | disposition home or self-care (01) ==
LOC: LABWHC1 16:40
PROVIDERS: ATTEND Obstetrics & Gynecology
DX: Z01.812 Encounter for preprocedural laboratory examination (principal)
CPT/HCPCS: 36415; 85025

== ENCOUNTER 2018-01-18 08:19 | Day surgery (SDC) | payer BC ==
[2018-01-13 12:52] VITALS: BMI 24.5
--- NOTE | 2018-01-17 17:35 | P.HPOB ---
History of Present Illness H&P Date: 01/17/18 Chief Complaint: Menorrhagia, family planning 42-year-old presents for D&C, hysteroscopy, endometrial ablation with NovaSure and laparoscopic tubal ligation. She was on control to help regulate her cycles and decrease her bleeding as well as from getting but her sheet heater helper wanted her to stop these because she now has irregular heartbeat at times. Review of Systems All systems: negative Constitutional: Denies chills, Denies fever Eyes: denies blurred vision, denies pain Ears, nose, mouth and throat: Denies headache, Denies sore throat Cardiovascular: Denies chest pain, Denies shortness of breath Respiratory: Denies cough Gastrointestinal: Denies abdominal pain, Denies diarrhea, Denies nausea, Denies vomiting Genitourinary: Denies dysuria, Denies hematuria Musculoskeletal: Denies myalgias Integumentary: Denies pruritus, Denies rash Neurological: Denies numbness, Denies weakness Psychiatric: Denies anxiety, Denies depression Endocrine: Denies fatigue, Denies weight change Past Medical History Past Medical History: Musculoskeletal Disorder, Seizure Disorder Additional Past Medical History / Comment(s): 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 Mild Scoliosis. Hx 2 seizures, last 07/26/2017. Had testing done 11/25/2017, Epilepsy ruled out and was told no risk of having any more seizures, seizure medication discontinued. 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 History of Any Multi-Drug Resistant Organisms: None Reported Past Surgical History: Adenoidectomy, Breast Surgery, Section Additional Past Surgical History / Comment(s): BILATERAL CARPAL TUNNEL RELEASE, SINUS SX, BILATERAL BREAST IMPLANTS, bronchoscopy 07-14-17. Past Anesthesia/Blood Transfusion Reactions: No Reported Reaction Additional Past Anesthesia/Blood Transfusion Reaction / Comment(s): Never had any blood transfusions. Past Psychological History: Anxiety Smoking Status: Former smoker Past Alcohol Use History: None Reported Additional Past Alcohol Use History / Comment(s): STARTED SMOKING AT AGE 19(1994 ) QUIT IN 2002. SMOKED somedays socially, a pack would last 3 months. Past Drug Use History: None Reported - Past Family History Mother Family Medical History: Eye Disorder, Hyperlipidemia, Thyroid Disorder Additional Family Medical History / Comment(s): mac degeneration Father History Unknown: Yes Additional Family Medical History / Comment(s): dad did'nt like going to Medications and Allergies Home Medications Medication Instructions Recorded Confirmed Type ALPRAZolam [Xanax] 0.25 mg PO TID 09/24/16 01/13/18 History Norethindrone AC-Eth Estradiol 1 each PO HS 09/24/16 01/13/18 History [Loestrin 21 1-20 Tablet] Diltiazem HCl 30 mg PO BID PRN 07/13/17 01/13/18 History Naproxen [Naprosyn] 250 mg PO TID PRN 07/23/17 01/13/18 History Multivitamins, Thera [Multivitamin 1 tab PO DAILY 01/13/18 01/13/18 History (formulary)] Allergies Allergy/AdvReac Type Severity Reaction Status Date / Time caffeine Allergy See Comment Verified 01/13/18 12:53 Exam Osteopathic Statement: *. No significant issues noted on an osteopathic structural exam other than those noted in the History and Physical/Consult. Heart: Regular rate and rhythm Lungs: Clear to auscultation bilaterally Abdomen: Soft, nontender Extremities: Negative Homans sign Assessment and Plan (1) Menorrhagia Status: Acute Code(s): N92.0 - EXCESSIVE AND FREQUENT MENSTRUATION WITH REGULAR CYCLE SNOMED Code(s): 144922378 (2) Family planning Status: Acute Code(s): Z30.09 - ENCOUNTER FOR OTH GENERAL CNSL AND ADVICE ON CONTRACEPTION SNOMED Code(s): 910299887 Plan: 1. D&C, hysteroscopy, endometrial ablation with NovaSure, laparoscopic tubal ligation.
[~2018-01-18 08:19] MED LIST changes: +DEXAMETHASONE SOD PHOSPHATE 10 MG/ML 1 ML VIAL IV ONE; +MIDAZOLAM 2 MG/2 ML VIAL IV PRN; +ONDANSETRON 4 MG/2 ML VIAL IVP ONE; +SCOPOLAMINE 1.5MG/72HR PATCH TRANSDERM ONE; +fentaNYL (PF) 50 MCG/ML 2 ML AMP IV PRN
[2018-01-18] MEDS ORDERED: LIDOCAINE 1% 20 ML VIAL (10MG/ML) FOR IV START INTRADERMA ONE (08:40)
[2018-01-18] MEDS ORDERED: KETOROLAC 30 MG/ML 1 ML VIAL ONE (10:01)
[2018-01-18] MEDS ORDERED: PROPOFOL 10 MG/ML 20 ML VIAL IV ONE (10:01)
[2018-01-18] MEDS ORDERED: MIDAZOLAM 2 MG/2 ML VIAL ONE (10:01)
[2018-01-18] MEDS ORDERED: SUCCINYLCHOLINE CHLORIDE 100 MG/5 ML SYR IV ONE (10:01)
[2018-01-18] MEDS ORDERED: LIDOCAINE 1% INJ 10MG/ML (20 ML MDV) ONE (10:01)
[2018-01-18] MEDS ORDERED: fentaNYL (PF) 50 MCG/ML 2 ML AMP ONE (10:01)
[2018-01-18] MEDS ORDERED: ROPIVACAINE 5 MG/ML 30 ML VIAL MISCELLANE ONE ×2 (10:17)
[2018-01-18 11:02] VITALS: TEMP 97.8
--- NOTE | 2018-01-18 11:12 | P.OP ---
Date of Procedure: 01/18/18 Preoperative Diagnosis: 1. Family Planning 2. menorrhagia Postoperative Diagnosis: same Procedure(s) Performed: Laparoscopic tubal ligation Anesthesia: SHAYLA Surgeon: Rissa Clinton Estimated Blood Loss (ml): 3 IV fluids (ml): 300 Urine output (ml): 20 Pathology: none sent Condition: stable Disposition: PACU Operative Findings: normal uterus, tubes and ovaries, small amount of scar tissue anterior uterus to anterior pelvis. perforation in the fundus of the uterus. stenotic cervix. Description of Procedure: Patient was taken to the operating room where general anesthesia was obtained without difficulty. She was prepped and draped in normal sterile fashion in the dorsal lithotomy position, legs placed in the Puneet stirrups. Bladder drained of all urine. Weighted speculum placed in the vagina and the anterior lip the cervix was grasped with single-tooth tenaculum. The uterus was attempted to be sounded but would not pass the stenotic cervix. The smallest Hegar dilator was used to started dilating the cervix gently, and then the sound was replaced. The sound kept going to the #14. At this time, it was felt the uterus had been perforated so the D&C and Novasure portion of the procedure was abandoned and the kroner manipulator was placed. Attention was then turned to the abdomen and gloves were changed. A 10 mm infraumbilical incision was made the scalpel and 10 mm optical trocar was placed under direct visualization. A 5 mm suprapubic Incision was made and a 5 mm optical trocar was placed under direct visualization. Survey of the pelvis revealed normal uterus tubes and ovaries. There was a small perforation noted in the fundus of the uterus, it was not actively bleeding. The left fallopian tube was grasped with a Kleppinger and fulgurated 2-3 cm on this side in the ampullar portion. The right fallopian tube was grasped with a Kleppinger and fulgurated 2-3 cm in the ampullar portion. All instruments were then removed from the abdomen and vagina. The 10 mm infraumbilical incision was closed with 0 Vicryl and the fascial layer and then 4-0 Vicryl in a subcuticular fashion. The 5 mm incision was closed with 4-0 Vicryl in a subcuticular fashion. Patient tolerated procedure well, sponge and instrument counts correct 2 and she was taken to recovery room in stable condition.
[2018-01-18] MEDS ORDERED: Acetaminophen-Codeine 300-30mg TAB PO ONE (12:22)
[2018-01-18 13:06] VITALS: BP 126/71; PULSE 91; RESP 18
== END 2018-01-18 13:51 | disposition home or self-care (01) ==
LOC: OR 08:19
PROVIDERS: ATTEND Obstetrics & Gynecology
DX: Z30.2 Encounter for sterilization (principal); N99.71 Accidental puncture and laceration of a genitourinary system organ or structure during a genitourinary system procedure; N88.2 Stricture and stenosis of cervix uteri; N92.0 Excessive and frequent menstruation with regular cycle; G40.909 Epilepsy, unspecified, not intractable, without status epilepticus; R00.0 Tachycardia, unspecified; I49.3 Ventricular premature depolarization; M41.9 Scoliosis, unspecified; F41.9 Anxiety disorder, unspecified; Z79.3 Long term (current) use of hormonal contraceptives; Z79.899 Other long term (current) drug therapy; Z88.8 Allergy status to other drugs, medicaments and biological substances; Z87.891 Personal history of nicotine dependence
CPT/HCPCS: 81025; 58670; 58563; J2250; J1100; J2405; J2001; J3010; J1885; J2795; J0330; J2704

== ENCOUNTER 2018-03-16 08:06 | Emergency (ER) | payer BC ==
[2018-03-16 08:10] VITALS: RESP 16
[2018-03-16] MEDS ORDERED: KETOROLAC 30 MG/ML 1 ML VIAL IVP STA (08:23)
[2018-03-16] MEDS ORDERED: SODIUM CHLORIDE 0.9% 2,000 ML IV STA (08:23)
[2018-03-16] MEDS ORDERED: ONDANSETRON 4 MG/2 ML VIAL IVP STA (08:23)
[2018-03-16] MEDS ORDERED: PANTOPRAZOLE 40 MG/10 ML VIAL IVP STA (08:23)
--- NOTE | 2018-03-16 08:29 | ED ---
Nausea/Vomiting/Diarrhea HPI - General Chief complaint: Nausea/Vomiting/Diarrhea Stated complaint: NAUSEA, ABDOMINAL PAIN Time Seen by Provider: 03/16/18 08:11 Source: patient, RN notes reviewed Mode of arrival: ambulatory Limitations: no limitations - History of Present Illness Initial comments: 42-year-old female presents emergency Department with chief complaint abdominal pain, nausea vomiting. Patient states that she has been sick for last 3 days started with vomiting abdominal discomfort. Patient states that she was getting better but last night worsened worsened this morning. Patient states that she did have a tubal ligation on 01/18/2018 and did have a perforation of her uterus. She did have a follow-up appointment and told her that he was fine at that time though she is now scheduled for hysterectomy secondary to endometriosis. Patient states that she used to be on control helped but now that she's had to location she's been off control and she's had issues. She states she's never had pain like this in the past. She states the pain is in the lower abdomen which is severe nonradiating to her back. Patient states she does have some urinary frequency with no dysuria she states she does not feel like a urinary tract infection. She does complain of some mild flank pain primarily on the left. Reports no fever states that she's had chills. Patient denies any current chest pain, shortness breath, headache or dizziness. She states she feels very weak and dehydrated. - Related Data Home Medications Medication Instructions Recorded Confirmed ALPRAZolam [Xanax] 0.25 mg PO TID 09/24/16 03/16/18 Diltiazem HCl 30 mg PO BID PRN 07/13/17 03/16/18 Multivitamins, Thera [Multivitamin 1 tab PO DAILY 01/13/18 03/16/18 (formulary)] Cyanocobalamin [Vitamin B-12 1,000 mcg SQ QMONTH 03/16/18 03/16/18 Injection] Ondansetron [Zofran ODT] 4 mg PO Q12H PRN 03/16/18 03/16/18 Previous Rx's Medication Instructions Recorded Promethazine [Phenergan] 25 mg PO Q6HR #15 tablet 03/16/18 Allergies Allergy/AdvReac Type Severity Reaction Status Date / Time caffeine Allergy See Comment Verified 03/16/18 08:34 SSRI MEDICATIONS AdvReac Unknown Uncoded 03/16/18 08:34 Review of Systems ROS Statement: Those systems with pertinent positive or pertinent negative responses have been documented in the HPI. ROS Other: All systems not noted in ROS Statement are negative. 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 Mild Scoliosis. Hx 2 seizures, last 07/26/2017. Had testing done 11/25/2017, Epilepsy ruled out and was told no risk of having any more seizures, seizure medication discontinued. 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 History of Any Multi-Drug Resistant Organisms: None Reported Past Surgical History: Adenoidectomy, Breast Surgery, Section, Tubal Ligation Additional Past Surgical History / Comment(s): BILATERAL CARPAL TUNNEL RELEASE, SINUS SX, BILATERAL BREAST IMPLANTS, bronchoscopy 07-14-17. Past Anesthesia/Blood Transfusion Reactions: No Reported Reaction Additional Past Anesthesia/Blood Transfusion Reaction / Comment(s): Never had any blood transfusions. Past Psychological History: Anxiety Smoking Status: Former smoker Past Alcohol Use History: None Reported Past Drug Use History: None Reported - Past Family History Mother Family Medical History: Eye Disorder, Hyperlipidemia, Thyroid Disorder Additional Family Medical History / Comment(s): mac degeneration Father History Unknown: Yes Additional Family Medical History / Comment(s): dad did'nt like going to General Exam Limitations: no limitations General appearance: alert, in no apparent distress Head exam: Present: atraumatic, normocephalic, normal inspection Eye exam: Present: normal appearance, PERRL, EOMI. Absent: scleral icterus, conjunctival injection, periorbital swelling Respiratory exam: Present: normal lung sounds bilaterally. Absent: respiratory distress, wheezes, rales, rhonchi, stridor Cardiovascular Exam: Present: regular rate, normal rhythm, normal heart sounds. Absent: systolic murmur, diastolic murmur, rubs, gallop, clicks GI/Abdominal exam: Present: soft, tenderness (Moderate tenderness of the lower abdomen), normal bowel sounds. Absent: distended, guarding, rebound, rigid Back exam: Absent: CVA tenderness (R), CVA tenderness (L) Skin exam: Present: warm, dry, intact, normal color. Absent: rash Course Vital Signs 03/16/18 08:06 Temperature 98.8 F Pulse Rate 80 Respiratory 16 Rate Blood Pressure 133/82 O2 Sat by Pulse 99 Oximetry Medical Decision Making - Medical Decision Making 6-year-old female presented for abdominal pain, nausea vomiting. Patient had complete workup including CT, labs and urinalysis. This is unremarkable. Patient is likely has a GI viral illness, endometriosis pain currently a menstrual cycle. Patient we discharged with antiemetics and pain medication. Return parameters were discussed. Patient informed of CT findings of liver states that she's had this in the past. - Lab Data Result diagrams: 03/16/18 08:38 03/16/18 08:38 Lab Results 03/16/18 03/16/18 03/16/18 Range/Units 08:38 08:38 08:38 WBC 6.2 (3.8-10.6) k/uL RBC 4.43 (3.80-5.40) m/uL Hgb 13.2 (11.4-16.0) gm/dL Hct 41.1 (34.0-46.0) % MCV 92.8 (80.0-100.0) fL MCH 29.9 (25.0-35.0) pg MCHC 32.2 (31.0-37.0) g/dL RDW 12.7 (11.5-15.5) % Plt Count 213 (150-450) k/uL Neutrophils % 76 % Lymphocytes % 16 % Monocytes % 5 % Eosinophils % 1 % Basophils % 1 % Neutrophils # 4.7 (1.3-7.7) k/uL Lymphocytes # 1.0 (1.0-4.8) k/uL Monocytes # 0.3 (0-1.0) k/uL Eosinophils # 0.1 (0-0.7) k/uL Basophils # 0.0 (0-0.2) k/uL Sodium 141 (137-145) mmol/L Potassium 3.6 (3.5-5.1) mmol/L Chloride 108 H (98-107) mmol/L Carbon Dioxide 25 (22-30) mmol/L Anion Gap 8 mmol/L BUN 18 H (7-17) mg/dL Creatinine 0.64 (0.52-1.04) mg/dL Est GFR (CKD-EPI)AfAm >90 (>60 ml/min/1.73 sqM) Est GFR (CKD-EPI)NonAf >90 (>60 ml/min/1.73 sqM) Glucose 93 (74-99) mg/dL Plasma Lactic Acid Arvind 0.9 (0.7-2.0) mmol/L Calcium 9.4 (8.4-10.2) mg/dL Total Bilirubin 1.0 (0.2-1.3) mg/dL AST 20 (14-36) U/L ALT 32 (9-52) U/L Alkaline Phosphatase 63 (38-126) U/L Total Protein 7.2 (6.3-8.2) g/dL Albumin 4.3 (3.5-5.0) g/dL Amylase 53 (30-110) U/L Lipase 83 (23-300) U/L Urine Color Urine Appearance (Clear) Urine pH (5.0-8.0) Urine Protein (Negative) Urine Glucose (UA) (Negative) Urine Blood (Negative) Urine Nitrite (Negative) Urine Bilirubin (Negative) Urine Urobilinogen (<2.0) mg/dL Ur Leukocyte Esterase (Negative) Urine RBC (0-5) /hpf Urine WBC (0-5) /hpf Ur Squamous Epith Cells (0-4) /hpf Urine Mucus (None) /hpf 03/16/18 Range/Units 10:28 WBC (3.8-10.6) k/uL RBC (3.80-5.40) m/uL Hgb (11.4-16.0) gm/dL Hct (34.0-46.0) % MCV (80.0-100.0) fL MCH (25.0-35.0) pg MCHC (31.0-37.0) g/dL RDW (11.5-15.5) % Plt Count (150-450) k/uL Neutrophils % % Lymphocytes % % Monocytes % % Eosinophils % % Basophils % % Neutrophils # (1.3-7.7) k/uL Lymphocytes # (1.0-4.8) k/uL Monocytes # (0-1.0) k/uL Eosinophils # (0-0.7) k/uL Basophils # (0-0.2) k/uL Sodium (137-145) mmol/L Potassium (3.5-5.1) mmol/L Chloride (98-107) mmol/L Carbon Dioxide (22-30) mmol/L Anion Gap mmol/L BUN (7-17) mg/dL Creatinine (0.52-1.04) mg/dL Est GFR (CKD-EPI)AfAm (>60 ml/min/1.73 sqM) Est GFR (CKD-EPI)NonAf (>60 ml/min/1.73 sqM) Glucose (74-99) mg/dL Plasma Lactic Acid Arvind (0.7-2.0) mmol/L Calcium (8.4-10.2) mg/dL Total Bilirubin (0.2-1.3) mg/dL AST (14-36) U/L ALT (9-52) U/L Alkaline Phosphatase (38-126) U/L Total Protein (6.3-8.2) g/dL Albumin (3.5-5.0) g/dL Amylase (30-110) U/L Lipase (23-300) U/L Urine Color Light Yellow Urine Appearance Clear (Clear) Urine pH 6.5 (5.0-8.0) Urine Protein Negative (Negative) Urine Glucose (UA) Negative (Negative) Urine Blood Large H (Negative) Urine Nitrite Negative (Negative) Urine Bilirubin Negative (Negative) Urine Urobilinogen <2.0 (<2.0) mg/dL Ur Leukocyte Esterase Negative (Negative) Urine RBC 8 H (0-5) /hpf Urine WBC 1 (0-5) /hpf Ur Squamous Epith Cells 15 H (0-4) /hpf Urine Mucus Rare H (None) /hpf Disposition Clinical Impression: Endometriosis, Nausea & vomiting, Abdominal pain Disposition: HOME SELF-CARE Instructions: Abdominal Pain (ED) Additional Instructions: Please return to the Emergency Department if symptoms worsen or any other concerns. Prescriptions: Promethazine [Phenergan] 25 mg PO Q6HR #15 tablet Is patient prescribed a controlled substance at d/c from ED?: No Referrals: Sravan Sam III, MD [Primary Care Provider] - 1-2 days Time of Disposition: 11:34
[2018-03-16 09:04] LABS: Basophils % (A) 1 %; Eosinophils # (A) 0.1 k/uL (0-0.7); Eosinophils % (A) 1 %; HCT 41.1 % (34.0-46.0); HGB 13.2 gm/dL (11.4-16.0); Lymphocytes % (A) 16 %; MCH 29.9 pg (25.0-35.0); MCHC 32.2 g/dL (31.0-37.0); MCV 92.8 fL (80.0-100.0); Mean Platelet Volume 6.7; Monocytes # (A) 0.3 k/uL (0-1.0); Monocytes % (A) 5 %; Neutrophils # (A) 4.7 k/uL (1.3-7.7); Neutrophils % (A) 76 %; Platelet Count 213 k/uL (150-450); RBC 4.43 m/uL (3.80-5.40); RDW 12.7 % (11.5-15.5); WBC 6.2 k/uL (3.8-10.6)
[2018-03-16 09:10] LABS: ALT 32 U/L (9-52); AST 20 U/L (14-36); Albumin 4.3 g/dL (3.5-5.0); Alkaline Phosphatase 63 U/L (38-126); Amylase 53 U/L (30-110); Anion Gap 8 mmol/L; Blood Urea Nitrogen 18 mg/dL (7-17); Calcium 9.4 mg/dL (8.4-10.2); Carbon Dioxide 25 mmol/L (22-30); Chloride 108 mmol/L (98-107); Glucose 93 mg/dL (74-99); Lipase 83 U/L (23-300); Potassium 3.6 mmol/L (3.5-5.1); Sodium 141 mmol/L (137-145); Total Protein 7.2 g/dL (6.3-8.2)
--- NOTE | 2018-03-16 10:24 | CT ---
EXAMINATION TYPE: CT abdomen pelvis w con DATE OF EXAM: 03/16/2018 COMPARISON: None INDICATION: Nausea and abdominal pain DLP: 478 mGycm, Automated exposure control for dose reduction was used. CONTRAST: 100 ml mL of Isovue 300. Study performed without Oral Contrast TECHNIQUE: Axial images were obtained from above the diaphragm to the pubic rami in the axial plane a t 5 mm thick sections. Reconstructed images are reviewed on the computer in the coronal plane. FINDINGS: Limited CT sections are obtained the lung bases. The lung bases are clear. Bilateral breast prosthe ses are present. CT ABDOMEN: Liver: There is a hypodense area within the anterior medial left lobe liver with irregular margins me asuring 50 Hounsfield units. This is of uncertain etiology. Additional workup is recommended. Hemangi sharlene is favored with some partial filling on delayed images. Consider workup with MRI. There is an add itional hypodensity within the lateral tip of the left lobe liver measuring 1.6 cm in size and 12 Ling nsfield units. This is more likely a cyst at this location. Spleen: Normal Pancreas: Normal Adrenal glands: The adrenal glands are normal. Gallbladder: Normal Kidneys: No masses are evident. No hydronephrosis is present. No cysts are present. Delayed images were obtained through the kidneys, which remain unremarkable. Aorta: Normal Inferior vena cava: Normal. CT PELVIS: Loops of bowel within the abdomen and pelvis are normal. Study is performed without oral contrast limiting the evaluation. Appendix: Not identified. No suspicious inflammatory changes evident. Urinary bladder: Normal. Genitourinary structures: Uterus is unremarkable. Adnexal regions appear within normal limits. Small amount of free fluid is within the pelvis which could be physiologic. Osseous structures: No suspicious lytic or sclerotic lesions. IMPRESSIONS: 1. No acute abdominal process. 2. Hepatic cyst. 3. Low density structure within the liver which is not a simple cyst. MRI with contrast is recommende d for additional evaluation. Hemangioma is favored within the differential.
[2018-03-16] MEDS ORDERED: METOCLOPRAMIDE 5 MG/ML 2 ML VIAL IVP STA (10:54)
[2018-03-16 11:19] LABS: Appearance,Urine Clear (Clear); Bilirubin,Urine Negative (Negative); Blood,Urine Large (Negative); Color,Urine Light Yellow; Glucose,Urine (UA) Negative (Negative); Ketones,Urine 2+ (Negative); Leukocyte Esterase,Urine Negative (Negative); Mucus,Urine Rare /hpf; Nitrite,Urine Negative (Negative); PH, Urine 6.5 (5.0-8.0); Protein,Urine Negative (Negative); RBC,Urine 8 /hpf (0-5); Squamous Epithelial Cell,Urine 15 /hpf (0-4); Urobilinogen,Urine <2.0 mg/dL (<2.0); WBC,Urine 1 /hpf (0-5)
[2018-03-16] MEDS ORDERED: ONDANSETRON ODT 4 MG TAB PO STA (11:32)
[2018-03-16] MEDS ORDERED: traMADol 50 MG STARTER PACK 3 TAB BTL PO STA (11:32)
[2018-03-16 11:40] VITALS: BP 107/60; PULSE 71; TEMP 97.9
[2018-03-16 11:44] LABS: Specific Gravity,Urine >1.050 (1.001-1.035)
== END 2018-03-16 11:45 | disposition home or self-care (01) ==
LOC: EC 08:06
DX: N80.9 Endometriosis, unspecified (principal); R11.2 Nausea with vomiting, unspecified; F41.9 Anxiety disorder, unspecified; Z79.899 Other long term (current) drug therapy; Z88.8 Allergy status to other drugs, medicaments and biological substances; Z91.018 Allergy to other foods; Z98.51 Tubal ligation status
CPT/HCPCS: 36415; 74177; 80053; 81001; 82150; 83605; 83690; 85025; 96361; 96374; 96375; 99284

== ENCOUNTER 2018-03-21 17:18 | Observation (INO) | payer BC ==
[2018-03-21 17:52] VITALS: BMI 25.2
[2018-03-21] MEDS: SODIUM CHLORIDE 0.9% 1,000 ML IV SCH (18:41)
[2018-03-21 19:16] LABS: Basophils % (A) 1 %; Eosinophils # (A) 0.1 k/uL (0-0.7); Eosinophils % (A) 1 %; HCT 44.8 % (34.0-46.0); Lymphocytes # (A) 1.3 k/uL (1.0-4.8); Lymphocytes % (A) 20 %; MCH 29.6 pg (25.0-35.0); MCHC 31.4 g/dL (31.0-37.0); MCV 94.2 fL (80.0-100.0); Mean Platelet Volume 7.9; Monocytes # (A) 0.4 k/uL (0-1.0); Monocytes % (A) 5 %; Neutrophils # (A) 4.9 k/uL (1.3-7.7); Neutrophils % (A) 72 %; Platelet Count 228 k/uL (150-450); RBC 4.75 m/uL (3.80-5.40); RDW 13.1 % (11.5-15.5); WBC 6.8 k/uL (3.8-10.6)
[2018-03-21 19:27] LABS: ALT 36 U/L (9-52); AST 27 U/L (14-36); Albumin 4.6 g/dL (3.5-5.0); Alkaline Phosphatase 68 U/L (38-126); Anion Gap 12 mmol/L; Blood Urea Nitrogen 13 mg/dL (7-17); Calcium 9.9 mg/dL (8.4-10.2); Carbon Dioxide 25 mmol/L (22-30); Chloride 104 mmol/L (98-107); Glucose 80 mg/dL (74-99); Sodium 141 mmol/L (137-145); Total Bilirubin 0.8 mg/dL (0.2-1.3); Total Protein 7.4 g/dL (6.3-8.2)
[2018-03-21] MEDS: ONDANSETRON 4 MG/2 ML VIAL IVP PRN (19:53)
[2018-03-21 20:30] LABS: HCG,Qualitative Serum Not Detected
[2018-03-22] MEDS: ONDANSETRON 4 MG/2 ML VIAL IVP PRN ×4 (03:04→23:54)
[2018-03-22 03:38] LABS: Appearance,Urine Clear (Clear); Bilirubin,Urine Negative (Negative); Blood,Urine Negative (Negative); Color,Urine Yellow; Glucose,Urine (UA) Negative (Negative); Ketones,Urine 2+ (Negative); Leukocyte Esterase,Urine Negative (Negative); Nitrite,Urine Negative (Negative); PH, Urine 5.5 (5.0-8.0); Protein,Urine Trace (Negative); Specific Gravity,Urine 1.021 (1.001-1.035); Urobilinogen,Urine <2.0 mg/dL (<2.0)
[2018-03-22 07:16] LABS: Basophils # (A) 0.1 k/uL (0-0.2); Basophils % (A) 1 %; Eosinophils # (A) 0.2 k/uL (0-0.7); Eosinophils % (A) 2 %; HCT 42.5 % (34.0-46.0); HGB 13.1 gm/dL (11.4-16.0); Lymphocytes # (A) 1.6 k/uL (1.0-4.8); Lymphocytes % (A) 20 %; MCH 29.4 pg (25.0-35.0); MCHC 30.9 g/dL (31.0-37.0); MCV 95.1 fL (80.0-100.0); Mean Platelet Volume 7.9; Monocytes # (A) 0.4 k/uL (0-1.0); Monocytes % (A) 5 %; Neutrophils # (A) 5.7 k/uL (1.3-7.7); Neutrophils % (A) 71 %; Platelet Count 218 k/uL (150-450); RBC 4.47 m/uL (3.80-5.40); WBC 8.1 k/uL (3.8-10.6)
[2018-03-22 07:39] LABS: Anion Gap 7 mmol/L; Blood Urea Nitrogen 16 mg/dL (7-17); Calcium 9.2 mg/dL (8.4-10.2); Carbon Dioxide 25 mmol/L (22-30); Chloride 107 mmol/L (98-107); Glucose 67 mg/dL (74-99); Potassium 4.1 mmol/L (3.5-5.1); Sodium 139 mmol/L (137-145)
[2018-03-22] MEDS: HEPARIN SODIUM,PORCINE 5,000 UNIT/ML 1 ML VIAL SQ SCH ×2 (08:45→20:59)
[2018-03-22] MEDS: ALPRAZolam 0.25 MG TAB PO SCH ×3 (08:46→20:59)
[2018-03-22] MEDS ORDERED: FAMOTIDINE 20 MG/2 ML VIAL IV SCH (09:00)
--- NOTE | 2018-03-22 13:06 | P.HPIM ---
Review of Systems This is a pleasant 42 years old female with past medical history of seizure disorder not on a AED, musculoskeletal disorder, sinus tachycardia with PVCs. Who presents because of continuous nausea vomiting of a day duration associated with weakness. Denies any blood in it. Has some abdominal pain on the lower abdomen and both sides more on the right. Abdominal pain gets worse with eating and drinking, gets better with Pepcid. Comes and goes with some consistency associated with loose/watery bowel movement every other day except yesterday which was semi-forward. Denies blood in it. Patient denies fever. No sick contacts. However she complains from increasing frequency of urination every 3-4 hours however she denies dysuria. She has history of prolonged heav and she was planned to get hysterectomy in 1 month. Initially her period was controlled with OCP, however her patternmaker helper opted to keep her away of contraceptive pills as they increase her risk of thrombosis. Patient denies smoking. No alcohol. No illicit tracts use including no marijuana. 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 Mild Scoliosis. Hx 2 seizures, last 07/26/2017. Had testing done 11/25/2017, Epilepsy ruled out and was told no risk of having any more seizures, seizure medication discontinued. 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 History of Any Multi-Drug Resistant Organisms: None Reported Past Surgical History: Adenoidectomy, Breast Surgery, Section, Tubal Ligation Additional Past Surgical History / Comment(s): BILATERAL CARPAL TUNNEL RELEASE, SINUS SX, BILATERAL BREAST IMPLANTS, bronchoscopy 07-14-17. Past Anesthesia/Blood Transfusion Reactions: No Reported Reaction Additional Past Anesthesia/Blood Transfusion Reaction / Comment(s): Never had any blood transfusions. Past Psychological History: Anxiety Smoking Status: Former smoker Past Alcohol Use History: None Reported Additional Past Alcohol Use History / Comment(s): STARTED SMOKING AT AGE 19(1994 ) QUIT IN 2002. SMOKED somedays socially, a pack would last 3 months. Past Drug Use History: None Reported - Past Family History Mother Family Medical History: Eye Disorder, Hyperlipidemia, Thyroid Disorder Additional Family Medical History / Comment(s): mac degeneration Father History Unknown: Yes Additional Family Medical History / Comment(s): dad did'nt like going to Medications and Allergies Home Medications Medication Instructions Recorded Confirmed Type ALPRAZolam [Xanax] 0.25 mg PO TID 09/24/16 03/21/18 History Diltiazem HCl 30 mg PO BID PRN 07/13/17 03/21/18 History Multivitamins, Thera [Multivitamin 1 tab PO DAILY 01/13/18 03/21/18 History (formulary)] Cyanocobalamin [Vitamin B-12 1,000 mcg SQ Q30D 03/16/18 03/21/18 History Injection] Ondansetron [Zofran ODT] 4 mg PO Q12H PRN 03/16/18 03/21/18 History Promethazine [Phenergan] 25 mg PO Q6HR #15 tablet 03/16/18 03/21/18 Rx Allergies Allergy/AdvReac Type Severity Reaction Status Date / Time caffeine Allergy See Comment Verified 03/21/18 18:30 SSRI MEDICATIONS AdvReac Unknown Uncoded 03/16/18 08:34 Physical Exam Vitals: Vital Signs Temp Pulse Resp BP Pulse Ox 03/22/18 07:20 98.3 F 83 16 117/68 98 03/22/18 04:00 18 03/22/18 00:00 18 03/21/18 23:20 98.3 F 81 18 102/64 97 03/21/18 20:00 18 03/21/18 17:38 98.4 F 79 18 120/77 98 Intake and Output 03/21/18 03/22/18 03/22/18 22:59 06:59 14:59 Intake Total 100 Balance 100 Intake: Other 100 Other: Voiding Method Toilet Toilet # Voids 1 Weight 58.6 kg GENERAL: The patient is alert and oriented x3, not in any acute distress. Well developed, well nourished. HEENT: Pupils are round and equally reacting to light. EOMI. No scleral icterus. No conjunctival pallor. Normocephalic, atraumatic. No pharyngeal erythema. No thyromegaly. CARDIOVASCULAR: S1 and S2 present. No murmurs, rubs, or gallops. PULMONARY: Chest is clear to auscultation, no wheezing or crackles. -ABDOMEN: Soft, nonspecific mild abdominal tenderness more on the right side. With no rebound tenderness. nondistended, normoactive bowel sounds. No palpable organomegaly. MUSCULOSKELETAL: No joint swelling or deformity. EXTREMITIES: No cyanosis, clubbing, or pedal edema. NEUROLOGICAL: Gross neurological examination did not reveal any focal deficits. SKIN: No rashes. Results CBC & Chem 7: 03/22/18 06:57 03/22/18 06:57 Labs: Abnormal Lab Results - Last 24 Hours (Table) 03/22/18 03/22/18 03/22/18 Range/Units 03:00 06:57 06:57 MCHC 30.9 L (31.0-37.0) g/dL Glucose 67 L (74-99) mg/dL Urine Protein Trace H (Negative) Urine Ketones 2+ H (Negative) Thrombosis Risk Factor Assmnt - Choose All That Apply Any of the Below Risk Factors Present?: No Other Risk Factors: No Thrombosis Risk Factor Assessment Level: Very Low Risk Assessment and Plan Assessment: Gastroenteritis-like picture Intractable nausea vomiting Dehydration History of seizure, not on 8 ED History of having a prolonged period, planned for cyst hysterectomy next month History of PVCs and tachycardia. Plan: This is a pleasant 42 years old female who presents with signs and symptoms of gastroenteritis-like picture. Continue with IV fluids.call gastroenterology consult Labs and medication were reviewed.. Continue same treatment. Continue with symptomatic treatment. Resume home medication. Monitor lytes and vitals. DVT and GI prophylaxis. Further recommendations of the clinical course of the patient DVT prophylaxis: Subcutaneous heparin GI Prophylaxis: Pepcid PT/OT: Pending Prognosis is guarded
--- NOTE | 2018-03-22 13:56 | P.CONS ---
History of Present Illness - Reason for Consult Consult date: 03/22/18 Nausea and abdominal pain Requesting physician: Gamal E Sheet - Chief Complaint Nausea abdominal pain - History of Present Illness 42-year-old female with a history of tubal ligation December 2017 with reported postoperative "puncture of uterus ", seizure disorder, anxiety, nicotine cigarette dependency, presents with week history of persistent nausea and nonbloody emesis dry heaves lower abdominal cramping. She's had a few episodes every other day of loose nonbloody bowel movements. No history of these types of symptoms. She was evaluated by her PCP recently regarding these symptoms outpatient computed tomography scan of the abdomen and pelvis a week ago reported a hypodense area within the anterior medial left lobe of the liver measuring 50 Hounsfield units of uncertain etiology hemangioma was favored. 1.6 cm hypodensity within the lateral tip of the left lobe most likely a cyst. Pancreas spleen normal. No mentioning of gallbladder abnormalities or stones. Appendix unremarkable. Uterus unremarkable. Recent travel sick contacts or changes in medications. CBC electrolytes LFTs within normal limits. HCG not detected. No fevers or weight loss. Review of Systems Constitutional: Denies fever, chills, sweats, weight gain, or loss. HEENT: Negative for migraines, blurred vision or loss, earaches, drainage, tinnitus, oral mucosal lesions, dysphagia, or odynophagia. CARDIAC: Negative for chest pain, arrhythmias, or palpitation. RESPIRATORY: Negative for shortness of breath, hemoptysis, cough, or sputum production. GI: See HPI for pertinent findings. : Negative for hematuria, urgency, frequency, polyuria, or dysuria. GYNc: Denies possibility of . Negative vaginal discharge. MUSCULOSKELETAL: History of seizure disorder. Negative for muscle aches, swelling, arthritis, and arthralgias. NEUROLOGIC: Negative for stroke or TIA. ENDOCRINE: Negative for thyroid problems. SKIN: Negative for rash or itching. PSYCHIATRIC: Negative history for depression and anxiety Past Medical History Past Medical History: Musculoskeletal Disorder, Seizure Disorder Additional Past Medical History / Comment(s): 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 Mild Scoliosis. Hx 2 seizures, last 07/26/2017. Had testing done 11/25/2017, Epilepsy ruled out and was told no risk of having any more seizures, seizure medication discontinued. 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 History of Any Multi-Drug Resistant Organisms: None Reported Past Surgical History: Adenoidectomy, Breast Surgery, Section, Tubal Ligation Additional Past Surgical History / Comment(s): BILATERAL CARPAL TUNNEL RELEASE, SINUS SX, BILATERAL BREAST IMPLANTS, bronchoscopy 07-14-17. Past Anesthesia/Blood Transfusion Reactions: No Reported Reaction Additional Past Anesthesia/Blood Transfusion Reaction / Comm: Never had any blood transfusions. Past Psychological History: Anxiety Smoking Status: Former smoker Past Alcohol Use History: None Reported Additional Past Alcohol Use History / Comment(s): STARTED SMOKING AT AGE 19(1994 ) QUIT IN 2002. SMOKED somedays socially, a pack would last 3 months. Past Drug Use History: None Reported - Past Family History Mother Family Medical History: Eye Disorder, Hyperlipidemia, Thyroid Disorder Additional Family Medical History / Comment(s): mac degeneration Father History Unknown: Yes Additional Family Medical History / Comment(s): dad did'nt like going to Medications and Allergies Home Medications Medication Instructions Recorded Confirmed Type ALPRAZolam [Xanax] 0.25 mg PO TID 09/24/16 03/21/18 History Diltiazem HCl 30 mg PO BID PRN 07/13/17 03/21/18 History Multivitamins, Thera [Multivitamin 1 tab PO DAILY 01/13/18 03/21/18 History (formulary)] Cyanocobalamin [Vitamin B-12 1,000 mcg SQ Q30D 03/16/18 03/21/18 History Injection] Ondansetron [Zofran ODT] 4 mg PO Q12H PRN 03/16/18 03/21/18 History Promethazine [Phenergan] 25 mg PO Q6HR #15 tablet 03/16/18 03/21/18 Rx Allergies Allergy/AdvReac Type Severity Reaction Status Date / Time caffeine Allergy See Comment Verified 03/21/18 18:30 SSRI MEDICATIONS AdvReac Unknown Uncoded 03/16/18 08:34 Physical Exam Vitals: Vital Signs Temp Pulse Resp BP Pulse Ox 03/22/18 07:20 98.3 F 83 16 117/68 98 03/22/18 04:00 18 03/22/18 00:00 18 03/21/18 23:20 98.3 F 81 18 102/64 97 03/21/18 20:00 18 03/21/18 17:38 98.4 F 79 18 120/77 98 Intake and Output 03/21/18 03/22/18 03/22/18 22:59 06:59 14:59 Intake Total 218 Balance 218 Intake: Oral 118 Other 100 Other: Voiding Method Toilet Toilet # Voids 1 Weight 58.6 kg General appearance: The patient is alert, oriented, in no acute distress. HET: Head is normocephalic and atraumatic. Pupils are equal and reactive. Oropharynx is clear without lesions. Neck: Supple without lymphadenopathy. Trachea midline. Heart: S1 S2. Regular rate and rhythm. Lungs: No crackles or wheezes are heard. Abdomen: Soft, some mild tenderness diffusely across mid abdomen, nondistended with bowel sounds. No peritoneal signs. No palpable organomegaly or masses. Extremities: Normal skin color and turgor. No cyanosis, rash, ulceration, clubbing, or edema. Radial and pedal pulses are 2/4 bilaterally. Neurological: No focal deficits. Strength and sensation are grossly intact. Results CBC & Chem 7: 03/22/18 06:57 03/22/18 06:57 Labs: Abnormal Lab Results - Last 24 Hours (Table) 03/22/18 03/22/18 03/22/18 Range/Units 03:00 06:57 06:57 MCHC 30.9 L (31.0-37.0) g/dL Glucose 67 L (74-99) mg/dL Urine Protein Trace H (Negative) Urine Ketones 2+ H (Negative) CT scan - abdomen: report reviewed (Dr. Aguirre) Assessment and Plan (1) Abdominal pain Narrative/Plan: 42-year-old female presents with a weeklong history of intractable nausea vomiting dry heaves lower abdominal cramping and intermittent nonbloody diarrhea possible gastroneuritis. Other differentials to consider is biliary dyskinesia which can cause similar symptoms. CT imaging reported 2 areas within the liver possible hemangioma possible cyst with normal liver function tests. Current Visit: No Status: Acute Code(s): R10.9 - UNSPECIFIED ABDOMINAL PAIN SNOMED Code(s): 18888309 (2) Nausea & vomiting Current Visit: No Status: Acute Code(s): R11.2 - NAUSEA WITH VOMITING, UNSPECIFIED SNOMED Code(s): 30732558 (3) Liver lesion, left lobe Narrative/Plan: Possible hemangioma possible hepatic cyst Current Visit: Yes Status: Acute Code(s): K76.9 - LIVER DISEASE, UNSPECIFIED SNOMED Code(s): 936540119 Plan: I. Protonix 40 mg IV daily. Inpatient EGD not planned at this time but contingent on clinical course. Continue with IV hydration GI prophylaxis. 2. Will provide scopolamine patch. Compazine suppository 25 mg twice daily as needed for nausea. 3. Stool studies if diarrhea persists. 4. In regards to CT findings of the liver recommend an outpatient MRI liver. 5. Consideration for HIDA scan if her symptoms do not improve. 6. Will follow closely with you. Thank you for this kind referral and the opportunity to participate in the care of your patient. This consultation was discussed with Dr. Aguirre. The impression and plan of care have been directed as dictated.
[2018-03-22] MEDS ORDERED: PROCHLORPERAZINE SUPPOSITORY 25 MG SUPP RECTAL PRN (13:57)
[2018-03-22] MEDS ORDERED: PANTOPRAZOLE 40 MG/10 ML VIAL IVP SCH (14:00)
[2018-03-22] MEDS: SCOPOLAMINE 1.5MG/72HR PATCH TRANSDERM SCH (14:52)
[2018-03-22] MEDS: SODIUM CHLORIDE 0.9% 1,000 ML IV SCH ×2 (18:20→22:36)
[2018-03-22] MEDS: PANTOPRAZOLE 40 MG/10 ML VIAL IVP SCH (20:59)
[2018-03-22] MEDS: METOCLOPRAMIDE 5 MG/ML 2 ML VIAL IVP PRN (20:59)
[2018-03-23] MEDS: METOCLOPRAMIDE 5 MG/ML 2 ML VIAL IVP PRN ×2 (01:40→14:13)
[2018-03-23] MEDS: ONDANSETRON 4 MG/2 ML VIAL IVP PRN ×2 (05:25→20:13)
[2018-03-23] MEDS: SODIUM CHLORIDE 0.9% 1,000 ML IV SCH (05:25)
[2018-03-23] MEDS: ALPRAZolam 0.25 MG TAB PO SCH ×3 (08:21→23:06)
[2018-03-23] MEDS: HEPARIN SODIUM,PORCINE 5,000 UNIT/ML 1 ML VIAL SQ SCH ×3 (08:21→20:16)
[2018-03-23] MEDS: PANTOPRAZOLE 40 MG/10 ML VIAL IVP SCH ×2 (08:21→20:13)
--- NOTE | 2018-03-23 08:53 | P.PN ---
Subjective Progress Note Date: 03/23/18 Principal diagnosis: Nausea vomiting abdominal pain Persistent nausea last night and this morning with dry heaves unable to tolerate clear liquids. Afebrile. No bleeding. Objective - Vital Signs Vital signs: Vital Signs Temp 98.5 F 03/23/18 07:20 Pulse 69 03/23/18 07:20 Resp 16 03/23/18 07:20 BP 92/54 03/23/18 07:20 Pulse Ox 100 03/23/18 07:20 Intake & Output 03/22/18 03/23/18 03/23/18 18:59 06:59 18:59 Intake Total 218 Balance 218 Intake: Oral 118 Other 100 Other: Voiding Method Toilet # Voids 1 1 - Exam General appearance: The patient is alert, oriented, in no acute distress. HET: Head is normocephalic and atraumatic. Pupils are equal and reactive. Oropharynx is clear without lesions. Neck: Supple without lymphadenopathy. Trachea midline. Heart: S1 S2. Regular rate and rhythm. Lungs: No crackles or wheezes are heard. Abdomen: Soft, mild midepigastric tenderness, nondistended with bowel sounds. No peritoneal signs. No palpable organomegaly or masses. Extremities: Normal skin color and turgor. No cyanosis, rash, ulceration, clubbing, or edema. Radial and pedal pulses are 2/4 bilaterally. Neurological: No focal deficits. Strength and sensation are grossly intact. - Labs CBC & Chem 7: 03/22/18 06:57 03/22/18 06:57 Assessment and Plan (1) Abdominal pain Narrative/Plan: 42-year-old female presents with a weeklong history of intractable nausea vomiting dry heaves lower abdominal cramping and intermittent nonbloody diarrhea possible gastroneuritis. Other differentials to consider is biliary dyskinesia which can cause similar symptoms. CT imaging reported 2 areas within the liver possible hemangioma possible cyst with normal liver function tests. Current Visit: No Status: Acute Code(s): R10.9 - UNSPECIFIED ABDOMINAL PAIN SNOMED Code(s): 97109969 (2) Nausea & vomiting Current Visit: No Status: Acute Code(s): R11.2 - NAUSEA WITH VOMITING, UNSPECIFIED SNOMED Code(s): 15316907 (3) Liver lesion, left lobe Narrative/Plan: Possible hemangioma possible hepatic cyst Current Visit: Yes Status: Acute Code(s): K76.9 - LIVER DISEASE, UNSPECIFIED SNOMED Code(s): 585946265 Plan: I. EGD. Consideration for HIDA if EGD is negative. 2. Continue GI prophylaxis. Nothing by mouth. The financial institution manager has discussed the risks, benefits and alternative therapies for the above-mentioned procedure and for both sedation/analgesia as well as necessary blood product administration, if indicated, as they pertain to this patient. The patient has indicated understanding and acceptance of the risks and procedures discussed. Assessment and plan a care discussed with Dr. Aguirre
[2018-03-23 10:09] LABS: Basophils % (A) 1 %; Eosinophils # (A) 0.1 k/uL (0-0.7); Eosinophils % (A) 1 %; HCT 37.9 % (34.0-46.0); HGB 12.7 gm/dL (11.4-16.0); Lymphocytes # (A) 1.2 k/uL (1.0-4.8); Lymphocytes % (A) 19 %; MCH 31.3 pg (25.0-35.0); MCHC 33.5 g/dL (31.0-37.0); MCV 93.5 fL (80.0-100.0); Mean Platelet Volume 7.1; Monocytes # (A) 0.3 k/uL (0-1.0); Monocytes % (A) 5 %; Neutrophils # (A) 4.4 k/uL (1.3-7.7); Neutrophils % (A) 72 %; Platelet Count 197 k/uL (150-450); RBC 4.06 m/uL (3.80-5.40); RDW 12.8 % (11.5-15.5); WBC 6.1 k/uL (3.8-10.6)
[2018-03-23 10:28] LABS: Anion Gap 14 mmol/L; Blood Urea Nitrogen 13 mg/dL (7-17); Carbon Dioxide 18 mmol/L (22-30); Chloride 109 mmol/L (98-107); Glucose 51 mg/dL (74-99); Potassium 4.3 mmol/L (3.5-5.1); Sodium 141 mmol/L (137-145)
[2018-03-23] MEDS ORDERED: PROPOFOL 10 MG/ML 20 ML VIAL IV ONE (11:56)
[2018-03-23] MEDS ORDERED: IV FLUID CONTINUATION 1,000 ML IV ONE (11:56)
[2018-03-23] MEDS ORDERED: MIDAZOLAM 2 MG/2 ML VIAL ONE (11:56)
[2018-03-23] MEDS ORDERED: LIDOCAINE 1% INJ 10MG/ML (20 ML MDV) ONE (11:56)
--- NOTE | 2018-03-23 12:53 | P.PCN ---
Date of Procedure: 03/23/18 Description of Procedure: BRIEF HISTORY: Patient is a 42-year-old, pleasant, female patient with a history of tubal ligation in 12/2017 who presented with persistent nausea and nonbloody emesis with strength leaves and lower abdominal cramping. Symptoms persisted in spite of symptomatically treatment and EGD was ordered for evaluation. PROCEDURE PERFORMED: Esophagogastroduodenoscopy with biopsy. PREOPERATIVE DIAGNOSIS: Intractable nausea and vomiting, abdominal pain. ESTIMATED BLOOD LOSS: Minimal. IV sedation per anesthesia. PROCEDURE: After informed consent was obtained, the patient was brought into the endoscopy unit. IV sedation was administered by Anesthesia under continuous monitoring. Initially the Olympus GIF-190 video endoscope was inserted into the mouth. Esophagus intubated without any difficulty. It was gradually advanced into the stomach and duodenum and carefully examined. The bulb and the second part of the duodenum appeared normal, biopsies taken from the second portion of the duodenum. The scope at this time was withdrawn to the stomach, adequately insufflated with air, and upon careful examination, mucosa of the antrum, body, cardia and the fundus appeared grossly normal, with mild scattered erythema in the antrum and body which were biopsied. The scope was then withdrawn into the esophagus. The GE junction was located at 39 cm from the incisors. The esophagus appeared normal. There were no erosions or ulcerations seen and the patient tolerated the procedure well. IMPRESSION: 1. No findings to explain patient's intractable nausea and vomiting. 2. Gastritis in the antrum and body biopsied, duodenal biopsies. RECOMMENDATIONS: The findings of this examination were discussed with the patient. Okay for diet. Antiemetics as needed. Await pathology from biopsies. Follow up with GI in 1-2 weeks after discharge.
--- NOTE | 2018-03-23 13:42 | P.PN ---
Subjective This is a pleasant 42 years old female with past medical history of seizure disorder not on a AED, musculoskeletal disorder, sinus tachycardia with PVCs. Who presents because of continuous nausea vomiting of a day duration associated with weakness. Denies any blood in it. Has some abdominal pain on the lower abdomen and both sides more on the right. Abdominal pain gets worse with eating and drinking, gets better with Pepcid. Comes and goes with some consistency associated with loose/watery bowel movement every other day except yesterday which was semi-forward. Denies blood in it. Patient denies fever. No sick contacts. However she complains from increasing frequency of urination every 3-4 hours however she denies dysuria. She has history of prolonged heav and she was planned to get hysterectomy in 1 month. Initially her period was controlled with OCP, however her record press supervisor opted to keep her away of contraceptive pills as they increase her risk of thrombosis. Patient denies smoking. No alcohol. No illicit tracts use including no marijuana. 03/23/2018 Patient underwent EGD by nuclear medical technologist team which showed no abnormalities explain the patient's presentation. Biopsy are pending with recommendation to follow up with GI clinic in 1-2 weeks. Patient is still complaining of from persistent nausea and vomiting. She has right upper quadrant abdominal pain which has been going on. That she has gallbladder disease running in the family. Continue symptomatic treatment. Continue with IV fluid. As patient is unable to keep things down and she does not want to start to eat. She does not have any bowel movement. She also complained from lower abdominal pain as well. call for surgical consult Objective - Vital Signs Vital signs: Vital Signs Temp 98.2 F 03/23/18 13:00 Pulse 88 03/23/18 13:00 Resp 16 03/23/18 13:00 BP 123/63 03/23/18 13:00 Pulse Ox 98 03/23/18 13:00 Intake & Output 03/22/18 03/23/18 03/23/18 18:59 06:59 18:59 Intake Total 218 450 Balance 218 450 Intake: IV 450 Oral 118 Other 100 Other: Voiding Method Toilet Toilet # Voids 1 1 - Exam GENERAL: The patient is alert and oriented x3, not in any acute distress. Well developed, well nourished. HEENT: Pupils are round and equally reacting to light. EOMI. No scleral icterus. No conjunctival pallor. Normocephalic, atraumatic. No pharyngeal erythema. No thyromegaly. CARDIOVASCULAR: S1 and S2 present. No murmurs, rubs, or gallops. PULMONARY: Chest is clear to auscultation, no wheezing or crackles. -ABDOMEN: Soft, RUQ and suprapubic tenderness. normoactive bowel sounds. No palpable organomegaly. MUSCULOSKELETAL: No joint swelling or deformity. EXTREMITIES: No cyanosis, clubbing, or pedal edema. NEUROLOGICAL: Gross neurological examination did not reveal any focal deficits. SKIN: No rashes. - Labs CBC & Chem 7: 03/23/18 09:29 03/23/18 09:29 Labs: Abnormal Lab Results - Last 24 Hours (Table) 03/23/18 Range/Units 09:29 Chloride 109 H (98-107) mmol/L Carbon Dioxide 18 L (22-30) mmol/L Glucose 51 L (74-99) mg/dL Assessment and Plan Assessment: Abdominal pain, GI and surgical consult Intractable nausea vomiting, status post and remarkable EGD Dehydration History of seizure, not on AED History of having a prolonged period, planned for cyst hysterectomy next month History of PVCs and tachycardia. Plan: This is a pleasant 42 years old female who presents with signs and symptoms of gastroenteritis-like picture. Continue with IV fluids.call gastroenterology consult and surgical consult Labs and medication were reviewed.. Continue same treatment. Continue with symptomatic treatment. Resume home medication. Monitor lytes and vitals. DVT and GI prophylaxis. Further recommendations of the clinical course of the patient DVT prophylaxis: Subcutaneous heparin GI Prophylaxis: Pepcid Prognosis is guarded
--- NOTE | 2018-03-23 15:26 | US ---
EXAMINATION TYPE: US gallbladder DATE OF EXAM: 03/23/2018 COMPARISON: CT 03/16/2018 CLINICAL HISTORY: nasuea and RUQ pain . EXAM MEASUREMENTS: Liver Length: 14.8 cm Gallbladder Wall: 0.2 cm CBD: 0.3 cm Right Kidney: 11.1 x 5.1 x 4.3 cm Pancreas: wnl, tail obscured by bowel gas. Liver: septated cyst anterior, medial left lobe = 2.2 x 2.2 x 1.7 cm, echogenic, solid area lateral left lobe = 2.3 x 1.9 x 1.9 cm Gallbladder: ? tiny 0.2 cm polyp Evidence for sonographic Escalante's sign: No CBD: wnl Right Kidney: cyst mid pole = 1.1 1.2x 0.9 cm IMPRESSION: 1. Solid mass like area lateral segment left hepatic lobe. Further evaluation with contrast and MRI r ecommended. Additional cystic lesion within the liver. 2. Small gallbladder polyp difficult to exclude.
--- NOTE | 2018-03-23 16:53 | P.GSCN ---
History of Present Illness Consult date: 03/23/18 History of present illness: This is a 42-year-old female who presented with a chief complaint of nausea and emesis. This began approximately 10 days ago. She states she's never had anything like this before. She admits some abdominal pain this is mostly in her bilateral lower quadrants and right upper quadrant. She states that food makes everything worse nothing makes it better. The pain is intermittent and crampy in nature. She denies any sick contacts denies any recent travel. She does have some diarrhea this all started 10 days ago as well. She recently had an EGD during this hospital stay which revealed mild gastritis and biopsies were taken. She also had a computed tomography scan which revealed a questionable hemangioma on the liver. Subsequent ultrasound showed a small gallbladder polyp 2 mm and was suggestive of a solid liver mass. 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 Mild Scoliosis. Hx 2 seizures, last 07/26/2017. Had testing done 11/25/2017, Epilepsy ruled out and was told no risk of having any more seizures, seizure medication discontinued. 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 History of Any Multi-Drug Resistant Organisms: None Reported Past Surgical History: Adenoidectomy, Breast Surgery, Section, Tubal Ligation Additional Past Surgical History / Comment(s): BILATERAL CARPAL TUNNEL RELEASE, SINUS SX, BILATERAL BREAST IMPLANTS, bronchoscopy 07-14-. Past Anesthesia/Blood Transfusion Reactions: No Reported Reaction Additional Past Anesthesia/Blood Transfusion Reaction / Comm: Never had any blood transfusions. Past Psychological History: Anxiety Smoking Status: Former smoker Past Alcohol Use History: None Reported Additional Past Alcohol Use History / Comment(s): STARTED SMOKING AT AGE 19(1994 ) QUIT IN 2002. SMOKED somedays socially, a pack would last 3 months. Past Drug Use History: None Reported - Past Family History Mother Family Medical History: Eye Disorder, Hyperlipidemia, Thyroid Disorder Additional Family Medical History / Comment(s): mac degeneration Father History Unknown: Yes Additional Family Medical History / Comment(s): dad did'nt like going to Medications and Allergies Home Medications Medication Instructions Recorded Confirmed Type ALPRAZolam [Xanax] 0.25 mg PO TID 09/24/16 03/21/18 History Diltiazem HCl 30 mg PO BID PRN 07/13/17 03/21/18 History Multivitamins, Thera [Multivitamin 1 tab PO DAILY 01/13/18 03/21/18 History (formulary)] Cyanocobalamin [Vitamin B-12 1,000 mcg SQ Q30D 03/16/18 03/21/18 History Injection] Ondansetron [Zofran ODT] 4 mg PO Q12H PRN 03/16/18 03/21/18 History Promethazine [Phenergan] 25 mg PO Q6HR #15 tablet 03/16/18 03/21/18 Rx Allergies Allergy/AdvReac Type Severity Reaction Status Date / Time caffeine Allergy See Comment Verified 03/21/18 18:30 SSRI MEDICATIONS AdvReac Unknown Uncoded 03/16/18 08:34 Surgical - Exam Osteopathic Statement: *. No significant issues noted on an osteopathic structural exam other than those noted in the History and Physical/Consult. Vital Signs Temp Pulse Resp BP Pulse Ox 98.4 F 79 18 120/77 98 03/21/18 17:38 03/21/18 17:38 03/21/18 17:38 03/21/18 17:38 03/21/18 17:38 - General well developed, well nourished, no distress - Eyes PERRL - Neck trachea midline - Respiratory normal expansion, normal respiratory effort - Cardiovascular Rhythm: regular - Abdomen Abdomen: soft, non tender - Neurologic normal coordination, normal sensation - Psychiatric oriented to time, oriented to person, oriented to place Results - Labs 03/23/18 09:29 03/23/18 09:29 Abnormal Lab Results - Last 24 Hours (Table) 03/23/18 Range/Units 09:29 Chloride 109 H (98-107) mmol/L Carbon Dioxide 18 L (22-30) mmol/L Glucose 51 L (74-99) mg/dL Diabetes panel 03/23/18 Range/Units 09:29 Sodium 141 (137-145) mmol/L Potassium 4.3 (3.5-5.1) mmol/L Chloride 109 H (98-107) mmol/L Carbon Dioxide 18 L (22-30) mmol/L BUN 13 (7-17) mg/dL Creatinine 0.66 (0.52-1.04) mg/dL Glucose 51 L (74-99) mg/dL Calcium 9.0 (8.4-10.2) mg/dL Calcium panel 03/23/18 Range/Units 09:29 Calcium 9.0 (8.4-10.2) mg/dL Pituitary panel 03/23/18 Range/Units 09:29 Sodium 141 (137-145) mmol/L Potassium 4.3 (3.5-5.1) mmol/L Chloride 109 H (98-107) mmol/L Carbon Dioxide 18 L (22-30) mmol/L BUN 13 (7-17) mg/dL Creatinine 0.66 (0.52-1.04) mg/dL Glucose 51 L (74-99) mg/dL Calcium 9.0 (8.4-10.2) mg/dL Adrenal panel 03/23/18 Range/Units 09:29 Sodium 141 (137-145) mmol/L Potassium 4.3 (3.5-5.1) mmol/L Chloride 109 H (98-107) mmol/L Carbon Dioxide 18 L (22-30) mmol/L BUN 13 (7-17) mg/dL Creatinine 0.66 (0.52-1.04) mg/dL Glucose 51 L (74-99) mg/dL Calcium 9.0 (8.4-10.2) mg/dL - Imaging CT scan - abdomen: report reviewed, image reviewed CT scan - pelvis: report reviewed, image reviewed US - abdomen: report reviewed Assessment and Plan Assessment: Intractable nausea, solid liver mass, 2 mm gallbladder polyp Plan: I discussion with the patient regarding her signs and symptoms. Ultrasound did not show any cholelithiasis or was a questionable 2 mm gallbladder polyp seen. I did suggest that the patient undergo HIDA scan to further evaluate the function of her gallbladder. As for the gallbladder polyp she may follow-up with another ultrasound in 6 months. The patient did have a solid liver mass MRI was suggested and I recommend this. I do not have any plans for acute surgical intervention at this time continue to treat the patient conservatively with IV fluids and antiemetics. She may begin a clear liquid diet as tolerated and advance as tolerated from a surgical standpoint.
--- NOTE | 2018-03-23 19:32 | NM ---
EXAMINATION TYPE: NM hepatobiliary w EF DATE OF EXAM: 03/23/2018 COMPARISON: NONE HISTORY: TECHNIQUE: After the intravenous administration of 5.3 mCi Tc 99m Mebrofenin hepatobiliary scintigrap hy is performed. Immediate images post injection. FINDINGS: There is satisfactory initial accumulation of tracer by the liver. The gallbladder is visualized wit hin 15 minutes. The small bowel activity is noted within 32 minutes. At one hour 8 ounces of oral e nsure plus is given to mimic CCK and gallbladder ejection fraction is calculated at 81 %, in the norm al range. Therefore there is no scintigraphic evidence of cystic or common bile duct obstruction to suggest acute cholecystitis or gallbladder dyskinesia. IMPRESSION: No focal liver defect. Normal gallbladder ejection fraction. Normal exam.
[2018-03-24] MEDS: METOCLOPRAMIDE 5 MG/ML 2 ML VIAL IVP PRN (00:35)
[2018-03-24] MEDS: SODIUM CHLORIDE 0.9% 1,000 ML IV SCH ×2 (03:08→15:17)
[2018-03-24 08:46] LABS: Basophils % (A) 1 %; Eosinophils # (A) 0.2 k/uL (0-0.7); Eosinophils % (A) 3 %; HCT 37.1 % (34.0-46.0); HGB 12.1 gm/dL (11.4-16.0); Lymphocytes # (A) 1.3 k/uL (1.0-4.8); Lymphocytes % (A) 29 %; MCH 30.2 pg (25.0-35.0); MCHC 32.6 g/dL (31.0-37.0); MCV 92.7 fL (80.0-100.0); Monocytes # (A) 0.3 k/uL (0-1.0); Monocytes % (A) 8 %; Neutrophils # (A) 2.5 k/uL (1.3-7.7); Neutrophils % (A) 57 %; Platelet Count 193 k/uL (150-450); RBC 4.01 m/uL (3.80-5.40); RDW 12.8 % (11.5-15.5); WBC 4.4 k/uL (3.8-10.6)
[2018-03-24 09:03] LABS: Anion Gap 7 mmol/L; Blood Urea Nitrogen 7 mg/dL (7-17); Calcium 8.9 mg/dL (8.4-10.2); Carbon Dioxide 23 mmol/L (22-30); Chloride 110 mmol/L (98-107); Glucose 71 mg/dL (74-99); Potassium 3.9 mmol/L (3.5-5.1); Sodium 140 mmol/L (137-145)
[2018-03-24] MEDS: PANTOPRAZOLE 40 MG/10 ML VIAL IVP SCH ×2 (09:09→22:56)
[2018-03-24] MEDS: HEPARIN SODIUM,PORCINE 5,000 UNIT/ML 1 ML VIAL SQ SCH ×2 (09:09→21:00)
[2018-03-24] MEDS: ALPRAZolam 0.25 MG TAB PO SCH ×3 (09:09→21:01)
--- NOTE | 2018-03-24 11:30 | P.PN ---
Subjective Progress Note Date: 03/24/18 Principal diagnosis: Nausea vomiting abdominal pain Nausea improved. Status post EGD yesterday no acute findings to account for her symptoms. HIDA scan within normal limits. Seen by general surgery. Ultrasound gallbladder no stones, left hepatic lobe solid masslike area, previous CT mentioned hemangioma and possible cyst. Gallbladder polyp difficult to exclude. CBD within normal limits. Objective - Vital Signs Vital signs: Vital Signs Temp 98.6 F 03/24/18 03:05 Pulse 52 L 03/24/18 03:05 Resp 14 03/24/18 03:05 BP 101/56 03/24/18 03:05 Pulse Ox 97 03/24/18 03:05 Intake & Output 03/23/18 03/24/18 03/24/18 18:59 06:59 18:59 Intake Total 450 Balance 450 Weight 52.163 kg Intake: IV 450 Other: Voiding Method Toilet Toilet # Voids 1 - Exam General appearance: The patient is alert, oriented, in no acute distress. HET: Head is normocephalic and atraumatic. Pupils are equal and reactive. Oropharynx is clear without lesions. Neck: Supple without lymphadenopathy. Trachea midline. Heart: S1 S2. Regular rate and rhythm. Lungs: No crackles or wheezes are heard. Abdomen: Soft, mild midepigastric tenderness, nondistended with bowel sounds. No peritoneal signs. No palpable organomegaly or masses. Extremities: Normal skin color and turgor. No cyanosis, rash, ulceration, clubbing, or edema. Radial and pedal pulses are 2/4 bilaterally. Neurological: No focal deficits. Strength and sensation are grossly intact. - Labs CBC & Chem 7: 03/24/18 07:23 03/24/18 07:23 Labs: Abnormal Lab Results - Last 24 Hours (Table) 03/24/18 Range/Units 07:23 Chloride 110 H (98-107) mmol/L Glucose 71 L (74-99) mg/dL Assessment and Plan (1) Abdominal pain Narrative/Plan: Unclear etiology status post EGD with no acute findings to account for her symptomatology. Current Visit: No Status: Acute Code(s): R10.9 - UNSPECIFIED ABDOMINAL PAIN SNOMED Code(s): 99772963 (2) Nausea & vomiting Current Visit: No Status: Acute Code(s): R11.2 - NAUSEA WITH VOMITING, UNSPECIFIED SNOMED Code(s): 53455738 (3) Liver lesion, left lobe Narrative/Plan: Possible hemangioma possible hepatic cyst Current Visit: Yes Status: Acute Code(s): K76.9 - LIVER DISEASE, UNSPECIFIED SNOMED Code(s): 852254399 Plan: 1. Advance diet. Outpatient MRI liver with and without contrast recommended prescription provided we'll schedule prior to discharge. If patient tolerates diet agreeable for discharge follow up in GI office in 2-3 weeks for reevaluation and discussion of MRI results. Assessment and plan a care discussed with Dr. Aguirre
--- NOTE | 2018-03-24 12:45 | P.PN ---
Subjective Progress Note Date: 03/24/18 Patient doing well no vomiting overnight. HIDA without abnormality today Objective - Vital Signs Vital signs: Vital Signs Temp 98.6 F 03/24/18 03:05 Pulse 52 L 03/24/18 03:05 Resp 14 03/24/18 03:05 BP 101/56 03/24/18 03:05 Pulse Ox 97 03/24/18 03:05 Intake & Output 03/23/18 03/24/18 03/24/18 18:59 06:59 18:59 Intake Total 450 200 Balance 450 200 Weight 52.163 kg Intake: IV 450 Oral 200 Other: Voiding Method Toilet Toilet # Voids 1 2 - Constitutional General appearance: Present: cooperative - Respiratory Details: nonlabored - Cardiovascular Rhythm: regular - Gastrointestinal Gastrointestinal Comment(s): soft/NT/ND - Psychiatric Psychiatric: Present: A&O x's 3 - Labs CBC & Chem 7: 03/24/18 07:23 03/24/18 07:23 Labs: Abnormal Lab Results - Last 24 Hours (Table) 03/24/18 Range/Units 07:23 Chloride 110 H (98-107) mmol/L Glucose 71 L (74-99) mg/dL Assessment and Plan Assessment: Intractable nausea, solid liver mass, 2 mm gallbladder polyp Plan: Patient is stable from surgical standpoint, she will be getting MRI as outpatient and following up with primary and GI. No plans for surgical intervention at this time. She will need a repeat US in 6 months for Gallbladder polyp if it is not further characterized on MRI.
--- NOTE | 2018-03-24 13:28 | P.PN ---
Subjective This is a pleasant 42 years old female with past medical history of seizure disorder not on a AED, musculoskeletal disorder, sinus tachycardia with PVCs. Who presents because of continuous nausea vomiting of a day duration associated with weakness. Denies any blood in it. Has some abdominal pain on the lower abdomen and both sides more on the right. Abdominal pain gets worse with eating and drinking, gets better with Pepcid. Comes and goes with some consistency associated with loose/watery bowel movement every other day except yesterday which was semi-forward. Denies blood in it. Patient denies fever. No sick contacts. However she complains from increasing frequency of urination every 3-4 hours however she denies dysuria. She has history of prolonged heav and she was planned to get hysterectomy in 1 month. Initially her period was controlled with OCP, however her flight engineer inspector opted to keep her away of contraceptive pills as they increase her risk of thrombosis. Patient denies smoking. No alcohol. No illicit tracts use including no marijuana. 03/23/2018 Patient underwent EGD by telephone worker team which showed no abnormalities explain the patient's presentation. Biopsy are pending with recommendation to follow up with GI clinic in 1-2 weeks. Patient is still complaining of from persistent nausea and vomiting. She has right upper quadrant abdominal pain which has been going on. That she has gallbladder disease running in the family. Continue symptomatic treatment. Continue with IV fluid. As patient is unable to keep things down and she does not want to start to eat. She does not have any bowel movement. She also complained from lower abdominal pain as well. call for surgical consult 03/24/2018 Patient underwent EGD by telephone worker team which showed no abnormalities explain the patient's presentation. Biopsy are pending with recommendation to follow up with GI clinic in 1-2 weeks. Patient is still complaining of from persistent nausea but no vomiting. Gallbladder ultrasound shows subacute or mass that can be evaluated by an MRI as an outpatient. He does scan is negative. surgical consult is appreciated no need for surgical intervention. Patient today is tolerating liquid diet and she still have some pain on the right upper quadrant. No bowel movement antacids as patient was not eating. Continue with IV fluids. General Labs were consistently good so far Objective - Vital Signs Vital signs: Vital Signs Temp 98.6 F 03/24/18 03:05 Pulse 52 L 03/24/18 03:05 Resp 14 03/24/18 03:05 BP 101/56 03/24/18 03:05 Pulse Ox 97 03/24/18 03:05 Intake & Output 03/23/18 03/24/18 03/24/18 18:59 06:59 18:59 Intake Total 450 200 Balance 450 200 Weight 52.163 kg Intake: IV 450 Oral 200 Other: Voiding Method Toilet Toilet # Voids 1 2 - Exam GENERAL: The patient is alert and oriented x3, not in any acute distress. Well developed, well nourished. HEENT: Pupils are round and equally reacting to light. EOMI. No scleral icterus. No conjunctival pallor. Normocephalic, atraumatic. No pharyngeal erythema. No thyromegaly. CARDIOVASCULAR: S1 and S2 present. No murmurs, rubs, or gallops. PULMONARY: Chest is clear to auscultation, no wheezing or crackles. -ABDOMEN: Soft, RUQ and suprapubic tenderness. normoactive bowel sounds. No palpable organomegaly. MUSCULOSKELETAL: No joint swelling or deformity. EXTREMITIES: No cyanosis, clubbing, or pedal edema. NEUROLOGICAL: Gross neurological examination did not reveal any focal deficits. SKIN: No rashes. - Labs CBC & Chem 7: 03/24/18 07:23 03/24/18 07:23 Labs: Abnormal Lab Results - Last 24 Hours (Table) 03/24/18 Range/Units 07:23 Chloride 110 H (98-107) mmol/L Glucose 71 L (74-99) mg/dL Assessment and Plan Assessment: Abdominal pain, GI and surgical consult Intractable nausea vomiting, status post and remarkable EGD Dehydration History of seizure, not on AED History of having a prolonged period, planned for cyst hysterectomy next month History of PVCs and tachycardia. Plan: This is a pleasant 42 years old female who presents with signs and symptoms of gastroenteritis-like picture. Continue with IV fluids.call gastroenterology consult and surgical consult Labs and medication were reviewed.. Continue same treatment. Continue with symptomatic treatment. Resume home medication. Monitor lytes and vitals. DVT and GI prophylaxis. Further recommendations of the clinical course of the patient DVT prophylaxis: Subcutaneous heparin GI Prophylaxis: Pepcid Prognosis is guarded
[2018-03-24] MEDS: ONDANSETRON 4 MG/2 ML VIAL IVP PRN (17:02)
[2018-03-24 19:06] VITALS: RESP 16
[2018-03-25] MEDS: SODIUM CHLORIDE 0.9% 1,000 ML IV SCH (03:10)
[2018-03-25 07:36] VITALS: BP 106/64; PULSE 58; TEMP 98.3
[2018-03-25] MEDS: ALPRAZolam 0.25 MG TAB PO SCH ×2 (08:05→13:55)
[2018-03-25] MEDS: HEPARIN SODIUM,PORCINE 5,000 UNIT/ML 1 ML VIAL SQ SCH (08:05)
[2018-03-25] MEDS: PANTOPRAZOLE 40 MG/10 ML VIAL IVP SCH (08:05)
--- NOTE | 2018-03-25 13:35 | P.PN ---
Subjective Progress Note Date: 03/25/18 Patient doing well no vomiting overnight. Pain improved Objective - Vital Signs Vital signs: Vital Signs Temp 98.3 F 03/25/18 07:00 Pulse 58 L 03/25/18 07:45 Resp 16 03/24/18 23:10 BP 106/64 03/25/18 07:00 Pulse Ox 97 03/25/18 07:00 Intake & Output 03/24/18 03/25/18 03/25/18 18:59 06:59 18:59 Intake Total 200 600 Balance 200 600 Weight 52.163 kg Intake: Intake, IV Titration 600 Amount Sodium Chloride 0.9% 1, 600 000 ml @ 75 mls/hr IV . [id number] ANDREW Rx#:[id number] Oral 200 Other: Voiding Method Toilet Toilet # Voids 2 - Constitutional General appearance: Present: cooperative - Respiratory Details: nonlabored - Cardiovascular Rhythm: regular - Gastrointestinal Gastrointestinal Comment(s): s/nt/nd - Psychiatric Psychiatric: Present: A&O x's 3 - Labs CBC & Chem 7: 03/24/18 07:23 03/24/18 07:23 Assessment and Plan Assessment: Intractable nausea, solid liver mass, 2 mm gallbladder polyp Plan: Patient is stable from surgical standpoint, she will be getting MRI as outpatient and following up with primary and GI. No plans for surgical intervention at this time. She will need a repeat US in 6 months for Gallbladder polyp if it is not further characterized on MRI.
[2018-03-25] MEDS: SCOPOLAMINE 1.5MG/72HR PATCH TRANSDERM SCH (13:56)
== END 2018-03-25 15:49 | disposition home or self-care (01) ==
LOC: 1SOBS 17:18 → 4SSUR 03-24 02:41
PROVIDERS: ADMIT Hospitalist; ATTEND Hospitalist
DX: R11.2 Nausea with vomiting, unspecified (principal); R10.11 Right upper quadrant pain; K29.50 Unspecified chronic gastritis without bleeding; K76.89 Other specified diseases of liver; K82.4 Cholesterolosis of gallbladder; E86.0 Dehydration; R19.7 Diarrhea, unspecified; R35.0 Frequency of micturition; N92.0 Excessive and frequent menstruation with regular cycle; R10.31 Right lower quadrant pain; R10.32 Left lower quadrant pain; I49.3 Ventricular premature depolarization; M41.9 Scoliosis, unspecified; F41.9 Anxiety disorder, unspecified; R00.0 Tachycardia, unspecified; M79.9 Soft tissue disorder, unspecified; R53.1 Weakness; Z79.899 Other long term (current) drug therapy; Z88.8 Allergy status to other drugs, medicaments and biological substances; Z91.048 Other nonmedicinal substance allergy status; Z90.49 Acquired absence of other specified parts of digestive tract; Z98.51 Tubal ligation status; Z98.82 Breast implant status; Z87.891 Personal history of nicotine dependence; Z86.69 Personal history of other diseases of the nervous system and sense organs; Z83.49 Family history of other endocrine, nutritional and metabolic diseases; Z83.518 Family history of other specified eye disorder
CPT/HCPCS: 96376 ×2; 96361 ×2; 96372 ×2; 96374; 96375; 88305; 80053; 80048 ×3; 83605; 85025 ×4; 81003; 81025; 84703; 76705; 78226; 43239; G0378 ×5; G0379; A9537; J2250; J1644 ×3; J2765 ×3; J2405 ×4; J2001; J2704; C9113 ×4

== ENCOUNTER → 2018-04-04 | Outpatient (CLI) | payer BC ==
[2018-04-04 09:26] LABS: Basophils # (A) 0.1 k/uL (0-0.2); Basophils % (A) 1 %; Eosinophils # (A) 0.3 k/uL (0-0.7); Eosinophils % (A) 5 %; HGB 14.3 gm/dL (11.4-16.0); Lymphocytes # (A) 1.6 k/uL (1.0-4.8); Lymphocytes % (A) 30 %; MCH 30.3 pg (25.0-35.0); MCHC 32.5 g/dL (31.0-37.0); MCV 93.1 fL (80.0-100.0); Mean Platelet Volume 7.3; Monocytes # (A) 0.4 k/uL (0-1.0); Monocytes % (A) 7 %; Neutrophils # (A) 2.9 k/uL (1.3-7.7); Neutrophils % (A) 55 %; Platelet Count 182 k/uL (150-450); RBC 4.72 m/uL (3.80-5.40); RDW 12.8 % (11.5-15.5); WBC 5.4 k/uL (3.8-10.6)
[2018-04-04 09:44] LABS: Anion Gap 7 mmol/L; Blood Urea Nitrogen 19 mg/dL (7-17); Calcium 9.5 mg/dL (8.4-10.2); Carbon Dioxide 28 mmol/L (22-30); Chloride 106 mmol/L (98-107); Glucose 96 mg/dL (74-99); Potassium 4.2 mmol/L (3.5-5.1); Sodium 141 mmol/L (137-145)
== END ==
LOC: LABPAT 08:49
PROVIDERS: ATTEND Obstetrics & Gynecology
DX: Z01.812 Encounter for preprocedural laboratory examination (principal)
CPT/HCPCS: 36415; 80048; 85025; 86850; 86900; 86901

== ENCOUNTER 2018-04-14 05:56 | Observation (INO) | payer BC ==
[2018-04-08 11:42] VITALS: BMI 25.4
[~2018-04-14 05:56] MED LIST changes: -LACTATED RINGERS 1,000 ML IV SCH; +LIDOCAINE 1% 20 ML VIAL (10MG/ML) FOR IV START INTRADERMA PRN; +MIDAZOLAM (PF) 2 MG/2 ML VIAL IV PRN; -MIDAZOLAM 2 MG/2 ML VIAL IV PRN; -ONDANSETRON 4 MG/2 ML VIAL IVP ONE; -Pre Op ABX Message 1 EACH MISC MISCELLANE ONE; -SCOPOLAMINE 1.5MG/72HR PATCH TRANSDERM ONE; +ceFAZolin IN SWFI 2 GM/20 ML SYRINGE IVP ONE
[2018-04-14] MEDS: LACTATED RINGERS 1,000 ML IV SCH ×2 (06:47→06:48)
[2018-04-14] MEDS: ONDANSETRON 4 MG/2 ML VIAL IVP ONE ×2 (06:56→08:56)
[2018-04-14] MEDS ORDERED: FAMOTIDINE 20 MG/2 ML VIAL IVP ONE (06:56)
--- NOTE | 2018-04-14 07:05 | P.HPOB ---
History of Present Illness H&P Date: 04/14/18 Chief Complaint: Menorrhagia 42 year old presents for H with da maile for menorrhagia and dysmenorrhea. Review of Systems All systems: negative Constitutional: Denies chills, Denies fever Eyes: denies blurred vision, denies pain Ears, nose, mouth and throat: Denies headache, Denies sore throat Cardiovascular: Denies chest pain, Denies shortness of breath Respiratory: Denies cough Gastrointestinal: Denies abdominal pain, Denies diarrhea, Denies nausea, Denies vomiting Genitourinary: Denies dysuria, Denies hematuria Musculoskeletal: Denies myalgias Integumentary: Denies pruritus, Denies rash Neurological: Denies numbness, Denies weakness Psychiatric: Denies anxiety, Denies depression Endocrine: Denies fatigue, Denies weight change Past Medical History Past Medical History: Musculoskeletal Disorder, Seizure Disorder Additional Past Medical History / Comment(s): 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 Mild Scoliosis. Hx 2 seizures, last 07/26/2017. Had testing done 11/25/2017, Epilepsy ruled out and was told no risk of having any more seizures, seizure medication discontinued. 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 STATES WAS TOLD HAD "MASS ON LIVER" CURRENTLY FOLLOWING UP ON IT History of Any Multi-Drug Resistant Organisms: None Reported Past Surgical History: Adenoidectomy, Breast Surgery, Section, Tubal Ligation Additional Past Surgical History / Comment(s): BILATERAL CARPAL TUNNEL RELEASE, SINUS SX, BILATERAL BREAST IMPLANTS, bronchoscopy 07-14-17, EGD Past Anesthesia/Blood Transfusion Reactions: No Reported Reaction Additional Past Anesthesia/Blood Transfusion Reaction / Comment(s): Never had any blood transfusions. Smoking Status: Former smoker - Past Family History Mother Family Medical History: Eye Disorder, Hyperlipidemia, Thyroid Disorder Additional Family Medical History / Comment(s): mac degeneration Father History Unknown: Yes Additional Family Medical History / Comment(s): dad did'nt like going to Medications and Allergies Home Medications Medication Instructions Recorded Confirmed Type Diltiazem HCl 30 mg PO BID PRN 07/13/17 04/14/18 History Multivitamins, Thera [Multivitamin 1 tab PO DAILY 01/13/18 04/14/18 History (formulary)] Cyanocobalamin [Vitamin B-12 1,000 mcg SQ Q30D 03/16/18 04/14/18 History Injection] Ondansetron [Zofran ODT] 4 mg PO Q6H PRN #30 tab.rapdis 03/25/18 04/14/18 Rx Pantoprazole Sodium [Protonix] 40 mg PO DAILY #30 tablet.dr 03/25/18 04/14/18 Rx ALPRAZolam [Xanax] 0.5 mg PO TID 04/08/18 04/14/18 History Allergies Allergy/AdvReac Type Severity Reaction Status Date / Time caffeine Allergy INCREASES Verified 04/08/18 11:34 HEART RATE SSRI MEDICATIONS AdvReac Unknown Uncoded 04/08/18 11:33 Exam Osteopathic Statement: *. No significant issues noted on an osteopathic structural exam other than those noted in the History and Physical/Consult. Vital Signs Temp Pulse Resp BP Pulse Ox 04/14/18 06:23 97.8 F 67 18 112/67 98 Heart: Regular rate and rhythm Lungs: Clear to auscultation bilaterally Abdomen: Soft, nontender Extremities: Negative Homans sign Assessment and Plan (1) Menorrhagia Current Visit: No Status: Acute Code(s): N92.0 - EXCESSIVE AND FREQUENT MENSTRUATION WITH REGULAR CYCLE SNOMED Code(s): 392312858 (2) Endometriosis Current Visit: No Status: Acute Code(s): N80.9 - ENDOMETRIOSIS, UNSPECIFIED SNOMED Code(s): 577587243 Plan: 1. Total laparoscopic hysterectomy with da Maile and diagnostic cystoscopy
[2018-04-14] MEDS ORDERED: LIDOCAINE 1% INJ 10MG/ML (20 ML MDV) ONE (07:17)
[2018-04-14] MEDS ORDERED: MIDAZOLAM 2 MG/2 ML VIAL ONE (07:17)
[2018-04-14] MEDS ORDERED: NEOSTIGMINE 1 MG/ML 10 ML VIAL ONE (07:17)
[2018-04-14] MEDS ORDERED: GLYCOPYRROLATE 0.2 MG/ML 2 ML VIAL ONE (07:17)
[2018-04-14] MEDS ORDERED: ROCURONIUM BROMIDE 10 MG/ML 10 ML VIAL IV ONE (07:17)
[2018-04-14] MEDS ORDERED: ePHEDrine SULFATE/0.9% NACL/PF 50 MG/5 ML SYRINGE IV ONE (07:17)
[2018-04-14] MEDS ORDERED: PROPOFOL 10 MG/ML 20 ML VIAL IV ONE (07:17)
[2018-04-14] MEDS ORDERED: fentaNYL (PF) 50 MCG/ML 2 ML AMP ONE (07:17)
[2018-04-14] MEDS ORDERED: SUCCINYLCHOLINE CHLORIDE 100 MG/5 ML SYR IV ONE (07:17)
[2018-04-14] MEDS ORDERED: ESMOLOL 100 MG/10 ML VIAL ONE (07:17)
[2018-04-14] MEDS ORDERED: KETOROLAC 30 MG/ML 1 ML VIAL ONE (07:17)
[2018-04-14] MEDS ORDERED: BUPIVACAINE (PF) 0.25% 30 ML VIAL SQ ONE ×2 (08:01)
[2018-04-14] MEDS ORDERED: KETOROLAC 30 MG/ML 1 ML VIAL IVP ONE (09:03)
[2018-04-14] MEDS: HYDROmorphone 1 MG/ML 1 ML SYRINGE IVP ONE ×2 (09:19→09:33)
[2018-04-14] MEDS ORDERED: DILTIAZEM ORAL 30 MG TAB PO PRN (09:21)
[2018-04-14] MEDS ORDERED: LACTATED RINGERS 1,000 ML IV ONE (09:34)
[2018-04-14] MEDS ORDERED: IBUPROFEN 600 MG TAB PO PRN (10:13)
[2018-04-14] MEDS ORDERED: ONDANSETRON 4 MG/2 ML VIAL IVP PRN (10:13)
[2018-04-14] MEDS ORDERED: ZOLPIDEM 5 MG TAB PO PRN (10:13)
[2018-04-14] MEDS ORDERED: LACTATED RINGERS 1,000 ML IV SCH (10:13)
[2018-04-14] MEDS ORDERED: Acetaminophen-Codeine 300-30mg TAB PO PRN ×2 (10:13)
[2018-04-14] MEDS ORDERED: MORPHINE SULFATE 2 MG/ML SYRINGE IVP PRN (10:24)
--- NOTE | 2018-04-14 11:35 | P.OP ---
Date of Procedure: 04/14/18 Preoperative Diagnosis: 1. menorrhagia 2. dysmenorrhea Postoperative Diagnosis: 1. menorrhagia 2. dysmenorrhea Procedure(s) Performed: TLH with Da armen and diagnostic cystoscopy Anesthesia: spinal Surgeon: Rissa Clinton Auditing Clerk #1: Ajay Ochoa Estimated Blood Loss (ml): 25 IV fluids (ml): 600 Urine output (ml): 200 Pathology: other (uterus and cervix) Condition: stable Disposition: PACU Operative Findings: normal uterus , tubes and ovaries Description of Procedure: Patient taken the operating room where general anesthesia was obtained without difficulty. She is prepped and draped in normal sterile fashion dorsal lithotomy position, legs placed in the Puneet stirrups. Weighted speculum placed in the vagina and the anterior lip the cervix was grasped with single- tooth tenaculum. The uterus sounded to 9 cm and the cervix diameter was 3.5 cm. The appropriate manipulator tip and ring were placed on the Neris manipulator. The Neris manipulator was then placed in the uterus. Rivera catheter was also placed. Attention was then turned to the abdomen and gloves were changed. A 5 mm supraumbilical incision was made the scalpel and a 5 mm optical trocar was placed under direct visualization. 10 cm to the right of this and 2 cm down a 5 mm incision was made and 8 mm da Armen port was placed under direct visualization. Same measurements on the opposite side of the patient's abdomen, the 5 mm incision was made and 8 mm da Armen port was placed under direct visualization. In the left upper quadrant a 10 mm incision was made and a 10 mm optical trocar was placed under direct visualization. The 5 mm optical trocar was then replaced with the 8 mm da Armen camera port. The robot was docked on patient's right side. The camera was introduced and then the monopolar curved scissor and [place] bipolar placed under direct visualization. I broke scrub and went to the physician console. The left utero -ovarian was cauterized with the [place] bipolar and cut with monopolar curved scissors. The left round ligament was cauterized with the [place] bipolar and cut with monopolar curved scissors. The posterior leaf of the broad ligament was taken down using the monopolar curved scissors. Anterior leaf of the broad ligament was then taken down using the monopolar curved scissors. The uterine artery was cauterized with the [place] bipolar and cut with monopolar curved scissors. The bladder flap was then started using the monopolar curved scissors. Attention was then turned to the right side of the patient's anatomy and the right utero-ovarian ligament was cauterized with the [place] bipolar and cut with monopolar curved scissors. The right round ligament was cauterized with the [place] bipolar and cut with monopolar curved scissors. Posterior leaf of the broad ligament was taken down using the monopolar curved scissors and the anterior leaf was taken down using the monopolar curved scissors. The uterine artery was cauterized the [place] bipolar cut with monopolar curved scissors. The bladder flap was then finished on this side. Anterior colpotomy was made using the monopolar curved scissors. The rest of the uterus was from the vaginal cuff by following the ring around with the monopolar curved scissors through the uterosacral ligaments back to the anterior portion. Once the uterus and cervix were amputated they were pulled through the vaginal cuff. Hemostasis was assured. The instruments were changed for the Cardier forcep and the alf suture cut. The vaginal cuff was then closed using O stratafix barbed suture in a running fashion. Hemostasis was again assured and the pelvis was irrigated. All instruments were removed from the abdomen and the robot was undocked. I scrubbed back in to perform a cystoscopy. There were jets from both ureteral orifices. The abdominal incisions were closed with 4-0 Vicryl in a subcuticular fashion. Patient tolerated the procedure well, sponge and instrument counts correct 2 and she was taken to recovery room in stable condition condition
[2018-04-14] MEDS: ALPRAZolam 0.5 MG TAB PO PRN (13:02)
[2018-04-14] MEDS: KETOROLAC 30 MG/ML 1 ML VIAL IVP PRN ×2 (15:18→20:30)
[2018-04-14] MEDS: SIMETHICONE 80 MG CHEWABLE PO PRN ×2 (15:23→20:28)
[2018-04-14] MEDS ORDERED: ALPRAZolam 0.5 MG TAB PO ONE (20:00)
[2018-04-14] MEDS: SENNOSIDES-DOCUSATE SODIUM 1 EACH TAB PO SCH (20:29)
[2018-04-14 22:02] VITALS: RESP 18
[2018-04-15] MEDS: KETOROLAC 30 MG/ML 1 ML VIAL IVP PRN (02:10)
[2018-04-15 06:49] LABS: Basophils % (A) 0 %; Eosinophils # (A) 0.2 k/uL (0-0.7); Eosinophils % (A) 2 %; HCT 36.7 % (34.0-46.0); HGB 12.1 gm/dL (11.4-16.0); Lymphocytes # (A) 2.2 k/uL (1.0-4.8); Lymphocytes % (A) 29 %; MCH 30.2 pg (25.0-35.0); MCV 91.5 fL (80.0-100.0); Mean Platelet Volume 7.2; Monocytes # (A) 0.5 k/uL (0-1.0); Monocytes % (A) 7 %; Neutrophils # (A) 4.4 k/uL (1.3-7.7); Neutrophils % (A) 59 %; Platelet Count 167 k/uL (150-450); RDW 12.7 % (11.5-15.5); WBC 7.4 k/uL (3.8-10.6)
[2018-04-15] MEDS ORDERED: PANTOPRAZOLE 40 MG TABLET PO SCH (07:30)
[2018-04-15] MEDS ORDERED: NAPROXEN 250 MG TAB PO PRN (07:33)
--- NOTE | 2018-04-15 07:36 | P.DS ---
Providers Date of admission: 04/14/18 23:34 Expected date of discharge: 04/15/18 Attending physician: Rissa Clinton Primary care physician: Sravan Sam - Discharge Diagnosis(es) (1) Menorrhagia Current Visit: No Status: Resolved (2) Endometriosis Current Visit: No Status: Resolved (3) History of robot-assisted laparoscopic hysterectomy Current Visit: Yes Status: Acute Hospital Course: Patient presented for total laparoscopic hysterectomy with da Aremn and cystoscopy. She underwent this procedure without complication. Postoperative course was uneventful. She is ambulating voiding without difficulty. Tolerating regular diet and passing flatus. Her pain is controlled with nonsteroidal anti-inflammatory drugs. She'll be discharged home postoperative day #1 in stable condition to follow-up with me in 3 weeks. I have reviewed discharge instructions with her and she is aware of when to call with any abnormal signs or symptoms. Plan - Discharge Summary Discharge Rx Participant: Yes New Discharge Prescriptions: New Naproxen Sodium [Anaprox DS] 550 mg PO Q12HR PRN #30 tab PRN Reason: Pain No Action Diltiazem HCl 30 mg PO BID PRN PRN Reason: RAPID HEART RATE Multivitamins, Thera [Multivitamin (formulary)] 1 tab PO DAILY Cyanocobalamin [Vitamin B-12 Injection] 1,000 mcg SQ Q30D Pantoprazole Sodium [Protonix] 40 mg PO DAILY #30 tablet. Ondansetron [Zofran ODT] 4 mg PO Q6H PRN #30 tab.rapdis PRN Reason: Nausea ALPRAZolam [Xanax] 0.5 mg PO TID Discharge Medication List Diltiazem HCl 30 mg PO BID PRN 07/13/17 [History] Multivitamins, Thera [Multivitamin (formulary)] 1 tab PO DAILY 01/13/18 [History ] Cyanocobalamin [Vitamin B-12 Injection] 1,000 mcg SQ Q30D 03/16/18 [History] Ondansetron [Zofran ODT] 4 mg PO Q6H PRN #30 tab.rapdis 03/25/18 [Rx] Pantoprazole Sodium [Protonix] 40 mg PO DAILY #30 tablet. 03/25/18 [Rx] ALPRAZolam [Xanax] 0.5 mg PO TID 04/08/18 [History] Naproxen Sodium [Anaprox DS] 550 mg PO Q12HR PRN #30 tab 04/15/18 [Rx] Follow up Appointment(s)/Referral(s): Rissa Clinton DO [Doctor of Osteopathic Medicine] - 3 Weeks Discharge Disposition: HOME SELF-CARE
[2018-04-15] MEDS: ALPRAZolam 0.5 MG TAB PO PRN (08:06)
[2018-04-15 08:52] VITALS: BP 107/73; PULSE 69; TEMP 98.8
[2018-04-15] MEDS: SENNOSIDES-DOCUSATE SODIUM 1 EACH TAB PO SCH (10:50)
== END 2018-04-15 10:11 | disposition home or self-care (01) ==
LOC: OR 05:56 → 4FBP 09:14 → OR 23:11 → 4FBP 23:34
PROVIDERS: ADMIT Obstetrics & Gynecology; ATTEND Obstetrics & Gynecology
DX: N92.0 Excessive and frequent menstruation with regular cycle (principal); N94.6 Dysmenorrhea, unspecified; R16.0 Hepatomegaly, not elsewhere classified; N80.9 Endometriosis, unspecified; Z87.891 Personal history of nicotine dependence; Z82.49 Family history of ischemic heart disease and other diseases of the circulatory system; Z83.49 Family history of other endocrine, nutritional and metabolic diseases; Z83.518 Family history of other specified eye disorder; Z79.899 Other long term (current) drug therapy; Z88.8 Allergy status to other drugs, medicaments and biological substances; Z91.018 Allergy to other foods
CPT/HCPCS: 58570; S2900; 81025; 85025; 86850; 86900; 86901; 88307

== ENCOUNTER 2018-05-17 07:55 | Inpatient (IN) | payer BC ==
--- NOTE | 2018-05-17 08:37 | ED ---
Psych HPI - General Source: patient, RN notes reviewed Mode of arrival: ambulatory Limitations: no limitations <Lance Lewis - Last Filed: 05/17/18 08:36> <Christopher Alex - Last Filed: 05/17/18 13:13> - General Chief Complaint: Psychiatric Symptoms Stated Complaint: anxiety Time Seen by Provider: 05/17/18 08:14 - History of Present Illness Initial Comments: This a 42-year-old female presents emergency Department for psychiatric evaluation. Patient states that she is depressed, anxious and suicidal. Patient states that she is been dealing with her primary care physician addressing her medications and states that nothing is helping. She had a recent increase in her Xanax to 1 mg with no relief of her anxiety. She has been tried on SSRIs, SSRIs with reactions. Patient states that recently she is felt suicidal. Denies any illicit drug use no alcohol abuse. Denies any physical complaints other than ongoing nausea which is unsure what is causing this other than believed to be related to her psychological issues. (Lance Lewis) - Related Data Home Medications Medication Instructions Recorded Confirmed ALPRAZolam [Xanax] 1 mg PO TID 04/08/18 05/17/18 busPIRone HCL [Buspar] 7.5 mg PO BID 05/17/18 05/17/18 Previous Rx's Medication Instructions Recorded Ondansetron [Zofran ODT] 4 mg PO Q6H PRN #30 tab.rapdis 03/25/18 Pantoprazole Sodium [Protonix] 40 mg PO DAILY #30 tablet. 03/25/18 Allergies Allergy/AdvReac Type Severity Reaction Status Date / Time caffeine AdvReac INCREASES Verified 05/17/18 08:43 HEART RATE SSRI MEDICATIONS AdvReac Unknown Uncoded 05/17/18 08:00 Review of Systems ROS Other: All systems not noted in ROS Statement are negative. <Lance Lewis - Last Filed: 05/17/18 08:36> ROS Other: All systems not noted in ROS Statement are negative. <Christopher Alex - Last Filed: 05/17/18 13:13> ROS Statement: Those systems with pertinent positive or pertinent negative responses have been documented in the HPI. 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 Mild Scoliosis. Hx 2 seizures, last 07/26/2017. Had testing done 11/25/2017, Epilepsy ruled out and was told no risk of having any more seizures, seizure medication discontinued. 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 STATES WAS TOLD HAD "MASS ON LIVER" CURRENTLY FOLLOWING UP ON IT History of Any Multi-Drug Resistant Organisms: None Reported Past Surgical History: Adenoidectomy, Breast Surgery, Section, Hysterectomy, Tubal Ligation Additional Past Surgical History / Comment(s): BILATERAL CARPAL TUNNEL RELEASE, SINUS SX, BILATERAL BREAST IMPLANTS, bronchoscopy 07-14-17, EGD, Breast implants removed Past Anesthesia/Blood Transfusion Reactions: No Reported Reaction Additional Past Anesthesia/Blood Transfusion Reaction / Comment(s): Never had any blood transfusions. Past Psychological History: Anxiety Smoking Status: Former smoker Past Alcohol Use History: None Reported Past Drug Use History: None Reported - Past Family History Mother Family Medical History: Eye Disorder, Hyperlipidemia, Thyroid Disorder Additional Family Medical History / Comment(s): mac degeneration Father History Unknown: Yes Additional Family Medical History / Comment(s): dad did'nt like going to <Lance Lewis M - Last Filed: 05/17/18 08:36> General Exam Limitations: no limitations General appearance: alert, in no apparent distress Head exam: Present: atraumatic, normocephalic, normal inspection Eye exam: Present: normal appearance, PERRL, EOMI. Absent: scleral icterus, conjunctival injection, periorbital swelling ENT exam: Present: normal exam, normal oropharynx, mucous membranes moist Neck exam: Present: normal inspection. Absent: tenderness, meningismus, lymphadenopathy Respiratory exam: Present: normal lung sounds bilaterally. Absent: respiratory distress, wheezes, rales, rhonchi, stridor Cardiovascular Exam: Present: normal rhythm, tachycardia, normal heart sounds. Absent: systolic murmur, diastolic murmur, rubs, gallop, clicks GI/Abdominal exam: Present: soft, normal bowel sounds. Absent: distended, tenderness, guarding, rebound, rigid Neurological exam: Present: alert, oriented X3, CN II-XII intact Psychiatric exam: Present: flat affect Skin exam: Present: warm, dry, intact, normal color. Absent: rash <Lance Lewis - Last Filed: 05/17/18 08:36> Vital Signs 05/17/18 07:56 Temperature 98.4 F Pulse Rate 108 H Respiratory 18 Rate Blood Pressure 116/75 O2 Sat by Pulse 100 Oximetry Medical Decision Making <BernardoLance tamayo - Last Filed: 05/17/18 08:36> <Christopher Alex - Last Filed: 05/17/18 13:13> - Medical Decision Making I interviewed the patient and filled out a clinical certification (Christopher Alex) - Lab Data Lab Results 05/17/18 05/17/18 Range/Units 09:15 09:15 Urine Color Light Yellow Urine Appearance Clear (Clear) Urine pH 6.0 (5.0-8.0) Ur Specific [place] 1.004 (1.001-1.035) Urine Protein Negative (Negative) Urine Glucose (UA) Negative (Negative) Urine Ketones 1+ H (Negative) Urine Blood Negative (Negative) Urine Nitrite Negative (Negative) Urine Bilirubin Negative (Negative) Urine Urobilinogen <2.0 (<2.0) mg/dL Ur Leukocyte Esterase Negative (Negative) Urine Opiates Screen Not Detected (NotDetected) Ur Oxycodone Screen Not Detected (NotDetected) Urine Methadone Screen Not Detected (NotDetected) Ur Propoxyphene Screen Not Detected (NotDetected) Ur Barbiturates Screen Not Detected (NotDetected) U Tricyclic Antidepress Not Detected (NotDetected) Ur Phencyclidine Scrn Not Detected (NotDetected) Ur Amphetamines Screen Not Detected (NotDetected) U Methamphetamines Scrn Not Detected (NotDetected) U Benzodiazepines Scrn Detected H (NotDetected) Urine Cocaine Screen Not Detected (NotDetected) U Marijuana (THC) Screen Not Detected (NotDetected) Disposition <Lance Lewis - Last Filed: 05/17/18 08:36> Time of Disposition: 13:13 <Christopher Alex - Last Filed: 05/17/18 13:13> Clinical Impression: Acute anxiety, Suicidal ideation Disposition: TRANSFER TO PSYCH HOSP/UNIT Referrals: Sravan Sam III, MD [Primary Care Provider] - 1-2 days
[2018-05-17 09:45] LABS: Appearance,Urine Clear (Clear); Bilirubin,Urine Negative (Negative); Blood,Urine Negative (Negative); Color,Urine Light Yellow; Glucose,Urine (UA) Negative (Negative); Ketones,Urine 1+ (Negative); Leukocyte Esterase,Urine Negative (Negative); Nitrite,Urine Negative (Negative); Protein,Urine Negative (Negative); Specific Gravity,Urine 1.004 (1.001-1.035); Urobilinogen,Urine <2.0 mg/dL (<2.0)
[2018-05-17 10:01] LABS: Amphetamine Screen,Urine Not Detected (NotDetected); Barbiturate Screen,Urine Not Detected (NotDetected); Benzodiazepines Screen,Urine Detected (NotDetected); Cocaine Screen,Urine Not Detected (NotDetected); Methadone Screen, Urine Not Detected (NotDetected); Opiate Screen,Urine Not Detected (NotDetected); Oxycodone Screen, Urine Not Detected (NotDetected); Phencyclidine Screen,Urine Not Detected (NotDetected); Tricyclic Antidepressant,Urine Not Detected (NotDetected); Urn Cannabinoid Scrn Not Detected (NotDetected)
[2018-05-17] MEDS ORDERED: ALPRAZolam 1 MG TAB PO STA (13:48)
[2018-05-17 14:08] LABS: Basophils # (A) 0.1 k/uL (0-0.2); Basophils % (A) 1 %; Eosinophils # (A) 0.1 k/uL (0-0.7); Eosinophils % (A) 1 %; HGB 14.3 gm/dL (11.4-16.0); Lymphocytes # (A) 1.5 k/uL (1.0-4.8); Lymphocytes % (A) 20 %; MCH 29.9 pg (25.0-35.0); MCHC 33.2 g/dL (31.0-37.0); Mean Platelet Volume 7.1; Monocytes # (A) 0.4 k/uL (0-1.0); Monocytes % (A) 5 %; Neutrophils # (A) 5.4 k/uL (1.3-7.7); Neutrophils % (A) 71 %; Platelet Count 225 k/uL (150-450); RBC 4.78 m/uL (3.80-5.40); RDW 12.8 % (11.5-15.5); WBC 7.6 k/uL (3.8-10.6)
[2018-05-17 14:22] LABS: ALT 20 U/L (9-52); AST 15 U/L (14-36); Albumin 4.7 g/dL (3.5-5.0); Alkaline Phosphatase 68 U/L (38-126); Anion Gap 11 mmol/L; Blood Urea Nitrogen 13 mg/dL (7-17); Carbon Dioxide 25 mmol/L (22-30); Chloride 105 mmol/L (98-107); Glucose 89 mg/dL (74-99); Potassium 4.3 mmol/L (3.5-5.1); Sodium 141 mmol/L (137-145); Total Bilirubin 0.8 mg/dL (0.2-1.3); Total Protein 7.6 g/dL (6.3-8.2)
[2018-05-17] MEDS ORDERED: MAG HYDROX/AL HYDROX/SIMETH 30 ML CUP PO PRN (17:37)
[2018-05-17] MEDS ORDERED: MAGNESIUM HYDROXIDE 2,400 MG/10 ML CUP PO PRN (17:37)
[2018-05-17] MEDS ORDERED: ACETAMINOPHEN TAB 325 MG TAB PO PRN (17:37)
[2018-05-17] MEDS ORDERED: ZIPRASIDONE 20 MG VIAL IM PRN (17:37)
[2018-05-17] MEDS ORDERED: NICOTINE 14MG/24HR PATCH TRANSDERM SCH (17:45)
[2018-05-17] MEDS ORDERED: LORazepam 2 MG/ML INJ IM PRN (17:47)
[2018-05-17] MEDS: LORazepam 1 MG TAB PO PRN (22:17)
[2018-05-18] MEDS: LORazepam 1 MG TAB PO PRN (06:11)
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
[2018-05-18] MEDS: clonazePAM 0.5 MG TAB PO SCH ×3 (10:29→21:17)
[2018-05-18] MEDS: busPIRone HCl 5 MG TAB PO SCH ×2 (10:30→21:17)
[2018-05-18 15:59] VITALS: BMI 21.7
[2018-05-18] MEDS: ONDANSETRON ODT 4 MG TAB PO PRN (17:46)
[2018-05-18] MEDS: LACTOBACILLUS ACIDOPH & BULGAR 1 EACH PACKET PO PRN (18:22)
--- NOTE | 2018-05-18 23:33 | P.MDCNMH ---
History of Present Illness H&P Date: 05/18/18 Chief Complaint: Anxiety Patient is a 42-year-old female with a known history of sinus tachycardia, anxiety came to evaluate the complaints of anxiety and psychiatric evaluation. Patient says that she has been depressed and anxious and says that her new medications are not working. Patient was on Xanax for a long time which is not giving him any relief. Patient was recently started on Pristiq and BuSpar for her chronic anxiety. Patient says that her new medications are not able to control her anxiety came to the hospital for evaluation. Otherwise denied any complaints of fever or chills. No nausea vomiting or abdominal pain. Denied any alcohol use. Patient does have a history of previous smoking. Denied any illicit drug use. No chest pain or shortness of breath. UDS is positive for benzodiazepines Patient says that she was on beta blockers before and was discontinued after she started taking shots for ALLERGIES. Review of Systems Constitutional: Patient denies any fever or chills . No generalized weakness or weight loss. Abdomen: Patient denied nausea vomiting and diarrhea and abdominal pain. Cardiovascular: Patient denies any chest pain or short of breath no palpitations. Respiratory: patient denied any cough is from production. No shortness of breath Neurologic: Patient denied any numbness or tingling headache. Musculoskeletal: Patient denies any complaints of joint swelling or deformity. Skin: Negative Psychiatric: Anxious Endocrine: No heat or cold intolerance. No recent weight gain. Genitourinary: No dysuria or hematuria. All other 14 point ROS negative except the above Past Medical History Past Medical History: Musculoskeletal Disorder, Seizure Disorder Additional Past Medical History / Comment(s): 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 Mild Scoliosis. Hx 2 seizures, last 07/26/2017. Had testing done 11/25/2017, Epilepsy ruled out and was told no risk of having any more seizures, seizure medication discontinued. 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 STATES WAS TOLD HAD "MASS ON LIVER" CURRENTLY FOLLOWING UP ON IT,past menorrhagia History of Any Multi-Drug Resistant Organisms: None Reported Past Surgical History: Ablation, Adenoidectomy, Breast Surgery, Section , Hysterectomy, Tubal Ligation Additional Past Surgical History / Comment(s): BILATERAL CARPAL TUNNEL RELEASE, SINUS SX, BILATERAL BREAST IMPLANTS, bronchoscopy 07-14-17, EGD,mar 2018 " during uterine ablation kenney poke a hole in uterus and pt ended up having a alp hysterectomy and diagnostic cystocopy. 05-11-18 Breast implants removed Past Anesthesia/Blood Transfusion Reactions: No Reported Reaction Additional Past Anesthesia/Blood Transfusion Reaction / Comment(s): Never had any blood transfusions. Smoking Status: Former smoker - Past Family History Mother Family Medical History: Eye Disorder, Hyperlipidemia, Thyroid Disorder Additional Family Medical History / Comment(s): mac degeneration Father History Unknown: Yes Additional Family Medical History / Comment(s): dad did'nt like going to Medications and Allergies Home Medications Medication Instructions Recorded Confirmed Type Ondansetron [Zofran ODT] 4 mg PO Q6H PRN #30 tab.rapdis 03/25/18 05/17/18 Rx Pantoprazole Sodium [Protonix] 40 mg PO DAILY #30 tablet. 03/25/18 05/18/18 Rx ALPRAZolam [Xanax] 1 mg PO TID 04/08/18 05/17/18 History busPIRone HCL [Buspar] 7.5 mg PO BID 05/17/18 05/17/18 History Allergies Allergy/AdvReac Type Severity Reaction Status Date / Time caffeine AdvReac INCREASES Verified 05/17/18 08:43 HEART RATE SSRI MEDICATIONS AdvReac Unknown Uncoded 05/17/18 08:00 Physical Exam Vitals: Vital Signs Temp Pulse Resp BP BP 05/18/18 10:36 117 H 18 109/71 05/18/18 06:05 98.2 F 14 108/62 PHYSICAL EXAMINATION: Patient is lying in the bed comfortably, no acute distress, awake alert and oriented.. HEENT: Normocephalic. Neck is supple. Pupils reactive. Nostrils clear. Oral cavity is moist. Ears reveal no drainage. Neck reveals no JVD, carotid bruits, or thyromegaly. CHEST EXAMINATION: Trachea is central. Symmetrical expansion. Lung yun clear to auscultation and percussion. CARDIAC: Normal S1, S2 with no gallops. No murmurs ABDOMEN: Soft. Bowel sounds normal. No organomegaly. No abdominal bruits. Extremities: reveal no edema. No clubbing or cyanosis Neurologically awake, alert, oriented x3 with well-coordinated movements. No focal deficits noted Skin: No rash or skin lesions. Psychiatric: Coperative. Nonsuicidal Musculoskeletal: No joint swelling or deformity. Normal range of motion. Cranial Nerve Examination - Cranial Nerves Cranial Nerve I- Olfactory: Intact Cranial Nerve II- Optic: Intact Cranial Nerve III- Oculomotor: Intact Cranial Nerve IV- Trochlear: Intact Cranial Nerve V- Trigeminal: Intact Cranial Nerve - Abducens: Intact Cranial Nerve VII- Facial: Intact Cranial Nerve VIII- Auditory: Intact Cranial Nerve IX- Glossopharyngeal: Intact Cranial Nerve X- Vagus: Intact Cranial Nerve XI- Accessory: Intact Cranial Nerve XII- Hypoglossal: Intact Results CBC & Chem 7: 05/17/18 13:46 05/17/18 13:46 Assessment and Plan Assessment: Acute on chronic anxiety History of seizure disorder. No medications were recommended. Sinus tachycardia and PVCs. Mild scoliosis Previous history of smoking History of bilateral breast implants and removal History of hysterectomy Plan: Patient was currently started on Klonopin. We will check TSH level. Laboratory data reviewed. Continue current management and follow closely. Further recommendations based on the clinical course. Thank you for your consult. Time with Patient: Greater than 30
[2018-05-19] MEDS: clonazePAM 0.5 MG TAB PO SCH ×3 (05:39→21:02)
[2018-05-19] MEDS: busPIRone HCl 5 MG TAB PO SCH ×2 (08:42→20:59)
[2018-05-19] MEDS: ONDANSETRON ODT 4 MG TAB PO PRN (08:42)
--- NOTE | 2018-05-19 09:03 | P.PN ---
Progress Note - Text Interval history: The patient is found in her room she follows me to an interview room. She reports her mood is down and she feels anxious and tired. It seems that her heart rate has been elevated for part of yesterday into this morning. She was seen by internal medicine no further recommendations made. She finds that the Klonopin may be mildly different than the Xanax. We reviewed medication options. She is hoping to try propranolol that we discussed yesterday. We discussed that this could lower blood pressure and we discussed signs of orthostatic hypotension. She is encouraged to eat her meals more fully and to be sure she is hydrating adequately. She has been attending groups. She reports a visit from her which was supportive. Mental status exam: The patient is a thin female appearing her stated age, she is dressed in her own clothing. She seated in the chair calm. She has a dysphoric affect but is not tearful. She reports hopelessness thinking. In terms of suicidal thoughts she feels safe here in the hospital. She reports no homicidal ideation. She is endorsing no auditory or visual hallucinations or any specific delusions. She is very much focused on her heart rate and anxiety symptoms. She conveys a strong sense of pessimism as she hoped things would be better already. Insight and judgment limited. She demonstrates no verbal or physical aggressiveness. She has little spontaneous speech but does answer questions asked of her. Plan: The patient will continue on the BuSpar Klonopin and we will initiate propranolol conservatively at 10 mg twice daily. Vital signs reviewed. She was educated in terms of the side effects of the propranolol specifically hypotension orthostatic hypotension. She reports being on a beta samantha in the past and this was discontinued prior to her undergoing ALLERGY shots. We will monitor her for safety and encourage full participation in the milieu.
[2018-05-19] MEDS: PROPRANOLOL 10 MG TAB PO SCH ×3 (09:14→22:43)
[2018-05-19 09:51] LABS: Basophils # (A) 0.1 k/uL (0-0.2); Basophils % (A) 1 %; Eosinophils # (A) 0.2 k/uL (0-0.7); Eosinophils % (A) 2 %; HCT 45.3 % (34.0-46.0); HGB 14.8 gm/dL (11.4-16.0); Lymphocytes # (A) 2.1 k/uL (1.0-4.8); Lymphocytes % (A) 28 %; MCH 29.9 pg (25.0-35.0); MCHC 32.6 g/dL (31.0-37.0); MCV 91.8 fL (80.0-100.0); Mean Platelet Volume 7.1; Monocytes # (A) 0.5 k/uL (0-1.0); Monocytes % (A) 7 %; Neutrophils # (A) 4.4 k/uL (1.3-7.7); Neutrophils % (A) 60 %; Platelet Count 261 k/uL (150-450); RBC 4.94 m/uL (3.80-5.40); WBC 7.4 k/uL (3.8-10.6)
[2018-05-19 10:14] LABS: ALT 15 U/L (9-52); AST 23 U/L (14-36); Alkaline Phosphatase 56 U/L (38-126); Anion Gap 12 mmol/L; Blood Urea Nitrogen 15 mg/dL (7-17); Calcium 9.8 mg/dL (8.4-10.2); Carbon Dioxide 27 mmol/L (22-30); Chloride 99 mmol/L (98-107); Cholesterol 171 mg/dL (<200); Glucose 136 mg/dL (74-99); HDL Cholesterol 65 mg/dL (40-60); LDL Cholesterol,Calculated 94 mg/dL (0-99); Potassium 3.5 mmol/L (3.5-5.1); Sodium 138 mmol/L (137-145); Total Bilirubin 1.1 mg/dL (0.2-1.3); Triglycerides 62 mg/dL (<150)
[2018-05-19] MEDS: LACTOBACILLUS ACIDOPH & BULGAR 1 EACH PACKET PO PRN (14:49)
[2018-05-20] MEDS: busPIRone HCl 5 MG TAB PO SCH ×2 (07:43→20:26)
[2018-05-20] MEDS: PROPRANOLOL 10 MG TAB PO SCH ×3 (08:50→20:26)
[2018-05-20] MEDS: clonazePAM 0.5 MG TAB PO SCH (08:50)
[2018-05-20] MEDS ORDERED: clonazePAM 0.5 MG TAB PO PRN (10:07)
--- NOTE | 2018-05-20 10:12 | P.PN ---
Progress Note - Text Interval history: The patient is found in her room she follows me to an interview room. She indicates that her mood is actually better today. She feels that the propranolol was very successful in reducing anxiety and controlling her heart rate but she felt her blood pressure get too low and felt tired. She expresses great concern related to this. We discussed that we need to give the medication time for her to acclimate and that we could lower the dose. We also discussed the timing of the Klonopin. She has been able to speak with her via phone and expects he will visit over the weekend. She feels well supported by family. Appetite stable. She has been participating in group. Mental status exam: The patient is a thin female appearing her stated age she is dressed in her own clothing she is wearing eyeglasses. Hygiene and grooming are adequate. Speech is fluent spontaneous nonpressured. She reports her mood is better. Affect is constricted she continues to demonstrate significant pessimism which we discussed further. She denies having any acute suicidal ideation intent or plan as she feels safe here in the hospital. She is reporting no homicidal ideation. She states she did feel completely hopeless at the time of admission area she demonstrates no verbal or physical aggressiveness she demonstrates no evidence of psychosis she reports no auditory or visual hallucinations. She does not demonstrate any evidence of hypomania or sloane. Plan: We will continue the BuSpar as written the propranolol will be reduced to 5 mg every 12 hours, we will continue monitoring her blood pressure and heart rate. Klonopin will be continued 0.5 mg every 8 hours as needed. We discussed the need for her to develop new coping skills in terms of her anxiety. She is encouraged to foster more optimistic thinking and to give the medication intervention a chance to work as so many of the other medication trials as an outpatient only lasted a few days. We will monitor her for safety she is encouraged to participate in the milieu.
[2018-05-20] MEDS: ONDANSETRON ODT 4 MG TAB PO PRN (16:06)
[2018-05-21] MEDS: ONDANSETRON ODT 4 MG TAB PO PRN (03:49)
[2018-05-21] MEDS: PROPRANOLOL 10 MG TAB PO SCH ×2 (08:21→21:14)
[2018-05-21] MEDS: busPIRone HCl 5 MG TAB PO SCH ×2 (08:22→21:14)
[2018-05-21] MEDS: clonazePAM 0.5 MG TAB PO SCH (22:47)
[2018-05-22] MEDS: clonazePAM 0.5 MG TAB PO SCH ×3 (06:35→21:56)
[2018-05-22] MEDS: busPIRone HCl 5 MG TAB PO SCH ×2 (08:35→20:19)
[2018-05-22] MEDS: PROPRANOLOL 10 MG TAB PO SCH ×2 (09:06→20:21)
--- NOTE | 2018-05-22 15:09 | P.PN ---
Progress Note - Text Progress Note Date: 05/22/18 IDENTIFICATION DATA: 42-year-old female admitted to the mental health unit for acute suicidal ideation and severe anxiety. INTERVAL HISTORY: Patient reports she likes to take her klonopin scheduled at eight hour intervals and says it has been helping her anxiety to be under control She reports going to all her groups with out having to worry about her anxiety. She claims to have slept well and reports eating good. MENTAL STATUS EXAMINATION: Patient appeared younger than her stated age in fair grooming and hygiene. She is pleasant and co-operative. Her speech and thought process are linear and goal directed. Her mood is reported as good and affect appropriate. The patient is alert and oriented 4 and in no apparent distress. Denies auditory or visual hallucinations. Denies paranoia. Thought content is negative for suicidal or homicidal ideation. Insight and judgment are improving. ASSESSMENT AND PLAN: Continue her current medications Monitor for safety and symptoms
[2018-05-22 22:06] LABS: Amorphous Sediment,Urine Rare /hpf; Appearance,Urine Cloudy (Clear); Bacteria,Urine Rare /hpf; Bilirubin,Urine Negative (Negative); Blood,Urine Negative (Negative); Color,Urine Yellow; Glucose,Urine (UA) Negative (Negative); Ketones,Urine Negative (Negative); Leukocyte Esterase,Urine Negative (Negative); Mucus,Urine Rare /hpf; Nitrite,Urine Negative (Negative); Protein,Urine Trace (Negative); Specific Gravity,Urine 1.019 (1.001-1.035); Squamous Epithelial Cell,Urine 4 /hpf (0-4); Urobilinogen,Urine <2.0 mg/dL (<2.0)
[2018-05-23] MEDS: clonazePAM 0.5 MG TAB PO SCH ×3 (05:43→22:25)
[2018-05-23] MEDS: busPIRone HCl 5 MG TAB PO SCH ×2 (08:45→20:11)
[2018-05-23] MEDS: PROPRANOLOL 10 MG TAB PO SCH ×3 (08:47→20:13)
--- NOTE | 2018-05-23 10:18 | P.PN ---
Progress Note - Text Interval history: The patient is found in group she follows me to an interview room. She indicates that her mood has been improving. She feels that the propranolol is helping with the anxiety and her heart rate. She feels that Klonopin is helpful for anxiety. There are some times where her blood pressure does become low she doesn't feel dizzy or ataxic. We reviewed the BuSpar and we discussed the need to titrate the dose of that medication further and she is agreeable. She states that she is comfortably eating again which is a relief. Her did visit again over the weekend he remained supportive. Notes from the family meeting were reviewed. Mental status exam: The patient is a thin female appearing her stated age. She has good hygiene grooming. Eye contact is appropriate speech is fluent spontaneous nonpressured. She reports no suicidal or homicidal ideation intent or plan. She is beginning to feel more hopeful. She is endorsing no symptoms of psychosis. Thought process is linear. She demonstrates no verbal or physical aggressiveness. She maintains a constricted affect. Plan: The patient is clinically stabilizing we will anticipate discharging her tomorrow. I will titrate the BuSpar to 15 mg twice daily. We will continue monitoring her vitals. We will discuss options for her in terms of seen a psychiatrist as an outpatient.
[2018-05-24] MEDS: clonazePAM 0.5 MG TAB PO SCH (06:18)
[2018-05-24 06:54] VITALS: RESP 16; TEMP 98.6
[2018-05-24] MEDS: PROPRANOLOL 10 MG TAB PO SCH (09:04)
[2018-05-24] MEDS: busPIRone HCl 5 MG TAB PO SCH (09:04)
[2018-05-24 09:09] VITALS: BP 109/66; PULSE 116
--- NOTE | 2018-05-24 10:02 | P.DS ---
Providers Date of admission: 05/17/18 17:29 Expected date of discharge: 05/24/18 Attending physician: Parrish Rodriguez Consults: 05/17/18 17:37 Consult Physician Routine Consulting Provider: Eren Theodore Consult Reason/Comments: H&P and medical Do you want consulting provider notified?: Yes Primary care physician: Sravan Sam - Discharge Diagnosis(es) (1) Major depressive disorder Current Visit: Yes Status: Acute Priority: High (2) Panic disorder Current Visit: Yes Status: Acute Priority: High Hospital Course: Brief summary of admission note: This patient is a 42-year-old female who was admitted to the mental health unit for acute suicidal ideation in the context of having severe anxiety. The patient was petition noted that she was having suicidal thoughts and there was no way out. She's been dealing with anxiety for numerous years and she felt it was worsening over the last 6 months. 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 She is not sure if the tachycardia is a result of the anxiety or triggering it. She endorses being more tearful depressed and lacking energy and motivation. She reported a weight loss of 20 pounds over the last several months with poor appetite. She had been frequently feeling nauseous. For full details please refer to my psychiatric evaluation dated . Summary of hospital course: The patient was admitted to the mental health unit voluntarily. We reviewed her presenting symptoms and treatment options. We decided that we would continue working with Kylie and initiated at 7.5 mg twice daily and it was eventually titrated to 15 mg twice daily. She was taken off of Xanax and started on Klonopin 0.5 mg 3 times a day which she found beneficial in comparison to the Xanax. She reported the Xanax was causing more interval anxiety. We also started her on propranolol 10 mg twice daily this was perceived to be too strong and he reduced it to 5 mg twice daily. She did experience some hypotension without dizziness or ataxia. Today her vital signs are improved. She feels comfortable with her current psychotropic medications she states she feels better and her anxiety is decreased. She has found her and other family members very supportive and is looking forward to returning home. She was seen by internal medicine for routine history and physical exam. Mental status exam: The patient is an alert female appearing her stated age. She has good hygiene grooming. She is dressed in her own clothing. Eye contact is appropriate speech is fluent spontaneous nonpressured. She is pleasant and cooperative. She reports her mood is better. Affect is constricted. She denies having any acute suicidal or homicidal ideation intent or plan. She is reporting no auditory or visual hallucinations or any specific delusions. There is no observed evidence of psychosis. She demonstrates no tangential thinking loose associations or flight of ideas, she does not appear hypomanic or manic. She is oriented to person place and date. She demonstrates no verbal or physical aggressiveness. She spontaneously reports future oriented thinking. Impressions 1. Major depressive disorder recurrent severe, panic disorder 2. Transient sinus tachycardia Plan: The patient will be discharged mental health unit today to return home. She will continue on BuSpar 18 mg twice daily, Klonopin 0.5 mg up to 3 times daily as needed, propranolol 5 mg twice daily. At this time there is no imminent safety risk she is appropriate for transition to outpatient care. Social work will arrange outpatient follow-up. She is instructed to return to the hospital with any acute safety concerns. Patient Condition at Discharge: Stable Plan - Discharge Summary Discharge Rx Participant: No New Discharge Prescriptions: New busPIRone HCL 15 mg PO BID #60 tab clonazePAM [KlonoPIN] 0.5 mg PO Q8H #45 tab Lactobacillus Acidoph & Bulgar [Lactinex] 1 each PO DAILY PRN packet PRN Reason: Gi Upset Propranolol [Inderal] 5 mg PO Q12HR #30 tab Continue Pantoprazole Sodium [Protonix] 40 mg PO DAILY #30 tablet. Ondansetron [Zofran ODT] 4 mg PO Q6H PRN #30 tab.rapdis PRN Reason: Nausea Discontinued ALPRAZolam [Xanax] 1 mg PO TID busPIRone HCL [Buspar] 7.5 mg PO BID Discharge Medication List Ondansetron [Zofran ODT] 4 mg PO Q6H PRN #30 tab.rapdis 03/25/18 [Rx] Pantoprazole Sodium [Protonix] 40 mg PO DAILY #30 tablet. 03/25/18 [Rx] Lactobacillus Acidoph & Bulgar [Lactinex] 1 each PO DAILY PRN packet 05/24/18 [ Rx] Propranolol [Inderal] 5 mg PO Q12HR #30 tab 05/24/18 [Rx] busPIRone HCL 15 mg PO BID #60 tab 05/24/18 [Rx] clonazePAM [KlonoPIN] 0.5 mg PO Q8H #45 tab 05/24/18 [Rx] Follow up Appointment(s)/Referral(s): [facility] [Other] - 05/25/18 1:30 pm (Lea MAGANA 13:30 paperwork 14:00 appointment ) Sravan Sam III, MD [Primary Care Provider] - 1-2 days
== END 2018-05-24 11:54 | disposition home or self-care (01) | DRG 885 ==
LOC: EC 07:55 → 3MHU 17:29
PROVIDERS: ADMIT Psychiatry & Neurology Psychiatry; ATTEND Psychiatry & Neurology Psychiatry
DX: F33.2 Major depressive disorder, recurrent severe without psychotic features (principal); R45.851 Suicidal ideations; F41.0 Panic disorder [episodic paroxysmal anxiety]; G40.909 Epilepsy, unspecified, not intractable, without status epilepticus; M41.9 Scoliosis, unspecified; Z87.891 Personal history of nicotine dependence; Z90.710 Acquired absence of both cervix and uterus; R63.4 Abnormal weight loss; Z68.22 Body mass index [BMI] 22.0-22.9, adult; I49.3 Ventricular premature depolarization; R00.0 Tachycardia, unspecified; Z88.8 Allergy status to other drugs, medicaments and biological substances; Z79.899 Other long term (current) drug therapy
CPT/HCPCS: 36415; 80053; 80061; 80306; 81001; 81003; 82075; 83036; 84443; 85025; 99284

== ENCOUNTER → 2018-07-14 | Outpatient (CLI) | payer BC ==
[2018-07-14 18:55] LABS: HCT 40.5 % (34.0-46.0); HGB 12.9 gm/dL (11.4-16.0); MCH 29.5 pg (25.0-35.0); MCV 92.1 fL (80.0-100.0); Mean Platelet Volume 7.1; Platelet Count 216 k/uL (150-450); RBC 4.39 m/uL (3.80-5.40); RDW 13.3 % (11.5-15.5); WBC 6.1 k/uL (3.8-10.6)
[2018-07-15 03:37] LABS: Anion Gap 7.6 mmol/L (4.00-12.00); Carbon Dioxide 29.4 mmol/L (21.6-31.8); Potassium 3.7 mmol/L (3.5-5.5)
== END ==
LOC: LABMAIN 17:59
PROVIDERS: ATTEND Internal Medicine Clinical Cardiac Electrophysiology
DX: Z01.812 Encounter for preprocedural laboratory examination (principal); I49.3 Ventricular premature depolarization
CPT/HCPCS: 36415; 80051; 82565; 82947; 84520; 85027

== ENCOUNTER 2018-07-26 11:02 | Day surgery (SDC) | payer BC ==
[2018-07-18 16:56] VITALS: BMI 21.9
[~2018-07-26 11:02] MED LIST changes: -DEXAMETHASONE SOD PHOSPHATE 10 MG/ML 1 ML VIAL IV ONE; -MIDAZOLAM (PF) 2 MG/2 ML VIAL IV PRN; +SODIUM CHLORIDE 0.9% 1,000 ML IV SCH; -ceFAZolin IN SWFI 2 GM/20 ML SYRINGE IVP ONE; -fentaNYL (PF) 50 MCG/ML 2 ML AMP IV PRN
[2018-07-26] MEDS ORDERED: PROPOFOL 10 MG/ML 20 ML VIAL IV ONE (11:45)
[2018-07-26] MEDS ORDERED: LIDOCAINE 1% INJ 10MG/ML (20 ML MDV) ONE ×2 (11:45→12:26)
[2018-07-26] MEDS ORDERED: MIDAZOLAM 2 MG/2 ML VIAL ONE (11:45)
[2018-07-26] MEDS ORDERED: diphenhydrAMINE 50 MG/ML 1 ML VIAL ONE (11:45)
[2018-07-26] MEDS ORDERED: ISOPROTERENOL 250 MCG/1.25 ML SYR IV ONE (11:45)
[2018-07-26] MEDS ORDERED: fentaNYL (PF) 50 MCG/ML 2 ML AMP ONE (11:45)
[2018-07-26] MEDS ORDERED: ONDANSETRON 4 MG/2 ML VIAL ONE (11:45)
[2018-07-26] MEDS ORDERED: HEPARIN SODIUM,PORCINE 5,000 UNIT/ML 1 ML VIAL ONE (11:45)
[2018-07-26] MEDS ORDERED: SODIUM CHLORIDE 0.9% 1,000 ML IV ONE (11:51)
[2018-07-26] MEDS ORDERED: HEPARIN SODIUM 1,000 UN/ML (10ML VL) ONE (12:26)
[2018-07-26] MEDS ORDERED: ACETAMINOPHEN TAB 325 MG TAB PO PRN (16:03)
[2018-07-26] MEDS ORDERED: ACETAMINOPHEN IV (For NPO) 1,000 MG in EMPTY BAG 1 BAG IVPB ONE (16:03)
[2018-07-26] MEDS ORDERED: HYDROcodone/APAP 5-325MG 1 EACH TAB PO PRN (16:03)
[2018-07-26] MEDS ORDERED: ONDANSETRON ODT 4 MG TAB PO PRN (16:04)
[2018-07-26] MEDS: LACTATED RINGERS 1,000 ML IV SCH ×2 (16:12→17:57)
[2018-07-26] MEDS: busPIRone HCl 5 MG TAB PO SCH (19:43)
[2018-07-26] MEDS: PROPRANOLOL 10 MG TAB PO SCH (23:13)
--- NOTE | 2018-07-27 00:30 | PCN ---
PROCEDURE NOTE Aileen Gomez is a 43-year-old female who has exercise-induced palpitations and PVCs, symptomatic. She takes Inderal also. She was brought in for diagnostic study and radiofrequency ablation. Patient was brought to the EP lab in a fasting state. Written informed consent was obtained prior to the procedure. The right and left groins were prepped and draped as per protocol. 1% lidocaine used for local anesthesia. Venous sheaths were placed in the right and left femoral veins and via these diagnostic catheters were placed in the high right atrium, His bundle area, right ventricle, coronary sinus. A full diagnostic EP study was performed on and off high-dose Isuprel. Later this study was repeated again on Isuprel. Sinus cycle length 773 milliseconds. NH interval 129 milliseconds, QRS 105 milliseconds, QT 369 milliseconds. AH interval 69 milliseconds, HV interval 35 milliseconds. Sinus node recovery times of 600, 500 and 400 milliseconds were 1276, 1414 and 1248. Corresponding corrected sinus node recovery times were within normal limits. There was no evidence of slow pathway conduction and no delta waves noted. AV node Wenckebach block 490 milliseconds. VA Wenckebach block greater than 600 milliseconds at baseline. Ventricular extra stimulation was performed after double extra stimuli. No VT was induced. Burst stimulation was performed from 400 milliseconds down to 200 milliseconds from the mid RV septum. No nonsustained VT or VT was induced. The patient had 2 spontaneous PVCs perfectly matched from the right ventricular outflow tract. She had 1 left-sided PVC. Isuprel was started at high dose and then at 2 mics and ventricular stimulation was performed. Atrial stimulation was performed, burst stimulation was performed. No VT could be induced. Isuprel was stopped and a full EP study was performed. No ventricular arrhythmias were induced. No spontaneous PVCs or nonsustained ventricular tachycardia seen. Therefore with two right ventricular outflow tract PVCs, we proceeded with pace mapping of these PVCs. Intracardiac echocardiography was performed. Three-D mapping of the right ventricular outflow tract was performed. The pulmonic valve, aortic valve, left cusps and the right aortic cusps were mapped and by ultrasound 1st. An irrigated tip catheter was placed in the RVOT and pace mapping was performed. The best pace map was of the PVCs was obtained around the right coronary anterior to the right coronary cusp. This area was mapped in detail and the best pace map that was obtained was 94% match. Obviously, the coronary cusps were not mapped because she did not have any PVCs. Therefore, at the best pace map site of 94%, RF energy was delivered up to 25 valenzuela. Good contact force of greater than 20-30 valenzuela was achieved and 4 RF lesions were delivered 30 seconds each. Following that, a full EP study was performed once again on high-dose Isuprel. Burst stimulation from the RV apex. Ventricular extra stimulation up to triple extrastimuli from the RV apex was performed and the burst stimulation from the coronary sinus was performed. However, no arrhythmias could be induced RV right ventricular outflow tract PVC could not be induced. At the end of the procedure intracardiac echo revealed normal LV function, normal pericardium, no effusion. All catheters were removed and patient was transferred back to telemetry. RESULT: Successful pace mapping of RVOT PVCs. The patient had very infrequent PVCs today and we will watch her in the future for development of any exercise-induced PVCs. The patient tolerated the procedure well without any acute complications. MMODL / IJN: [id number] /
--- NOTE | 2018-07-27 00:37 | LTR ---
DATE OF SERVICE: 07/26/2018 Dr. Sam I had the pleasure seeing Aileen Mcintosh in electrophysiology followup. As you know, Aileen had very frequent PVCs on the treadmill and she underwent today diagnostic EP study. However, today she had no spontaneous PVCs and she had extremely few spontaneous PVCs at rest. She had only 2 PVCs from the right ventricular outflow tract which were mapped successfully with a 94% concordance and successfully ablated. A very detailed EP study on and off Isuprel was performed but no nonsustained ventricular tachycardia occurred while cardiac could be induced thereafter. I will continue to follow her and see if she has any other exercise induced PVCs in the future. Thank you for entrusting the care of the patient. Warm regards, Sincerely, CAILIN / JEFFREY: [id number] /
[2018-07-27 03:45] VITALS: RESP 18
[2018-07-27] MEDS ORDERED: PANTOPRAZOLE 40 MG TABLET PO SCH (07:30)
[2018-07-27 07:31] VITALS: BP 106/70; PULSE 75; TEMP 98.2
[2018-07-27] MEDS: PROPRANOLOL 10 MG TAB PO SCH (08:01)
[2018-07-27] MEDS: busPIRone HCl 5 MG TAB PO SCH (08:01)
--- NOTE | 2018-07-27 10:44 | P.DS ---
Providers Attending physician: Adriano Morgan Primary care physician: [facility] Course: Patient is doing well. Her groins of healed well. Yesterday she had a bit of oozing and bleeding in the left groin when she got up but has been no such recurrence. There is no hematoma no swelling Normal heart sounds, S1 normal S2 Normal breath sounds no rhonchi no crackles Abdomen soft nontender Extremities is warm no edema Impression History of PVCs nonsustained ventricular tachycardia excising use Yesterday she underwent PVC ablation She had only 2 PVCs from the right ventricular outflow tract which were pace mapped with a concordance of 94% successful ablation was performed but she has not had any for the PVCs since Plan Discharge home today in follow-up with Dr. Kovacs as an outpatient late I will perform reprogrammed to monitor and I will also perform an excised [facility] he has any excising dose PVCs She had 1 PVC from the left ventricular base which was not tolerated for ablation Plan - Discharge Summary Discharge Rx Participant: No New Discharge Prescriptions: Continue RX: Pantoprazole Sodium [Protonix] 40 mg PO DAILY #30 tablet. RX: Ondansetron [Zofran ODT] 4 mg PO Q6H PRN #30 tab.rapdis PRN Reason: Nausea RX: clonazePAM [KlonoPIN] 0.5 mg PO Q8H #45 tab RX: Lactobacillus Acidoph & Bulgar [Lactinex] 1 each PO DAILY PRN packet PRN Reason: Gi Upset RX: busPIRone HCL [Buspar] 7.5 mg PO 1200 RX: busPIRone HCL 15 mg PO BID RX: Propranolol [Inderal] 2.5 mg PO Q12HR Discharge Medication List RX: Ondansetron [Zofran ODT] 4 mg PO Q6H PRN #30 tab.rapdis 03/25/18 [Rx] RX: Pantoprazole Sodium [Protonix] 40 mg PO DAILY #30 tablet. 03/25/18 [Rx] RX: Lactobacillus Acidoph & Bulgar [Lactinex] 1 each PO DAILY PRN packet 05/24/18 [Rx] RX: clonazePAM [KlonoPIN] 0.5 mg PO Q8H #45 tab 05/24/18 [Rx] RX: Propranolol [Inderal] 2.5 mg PO Q12HR 07/18/18 [History] RX: busPIRone HCL 15 mg PO BID 07/18/18 [History] RX: busPIRone HCL [Buspar] 7.5 mg PO 1200 07/18/18 [History] Follow up Appointment(s)/Referral(s): Adriano Morgan MD [STAFF PHYSICIAN] - 08/10/18 11:00 am Activity/Diet/Wound Care/Special Instructions: Post EP study - Ablation instructions 1. Keep access sites dry for 2 days. 2. No heavy lifting or straining for 2 days. 3. Avoid bending the hips repeatedly for 2 days. 4. You may go up and down stairs slowly Call if the following is noted 1. Bleeding, increasing swelling or pain at the access sites. 2. Increasing chest discomfort, especially upon taking a deep breath. 3. Increasing shortness of breath, at rest or with exertion. 4. Undue cough / phlegm 5. Difficulty or pain while swallowing. 6. Pain or change in color in the extremities. 7. Fever, chills, rigors. 8. Increasing headache or neurologic symptoms. 9. Dizziness, fainting, palpitations Follow-up with Dr. Kovacs/sean mccracken in 1-2 weeks
[2018-07-27] MEDS ORDERED: busPIRone HCl 5 MG TAB PO SCH (12:00)
== END 2018-07-27 12:38 | disposition home or self-care (01) ==
LOC: CATHEP 11:02 → 1SOBS 16:00 → CATHEP 18:11 → 1SOBS 18:11 → CATHEP 07-27 12:38
PROVIDERS: ATTEND Internal Medicine Clinical Cardiac Electrophysiology
DX: I49.3 Ventricular premature depolarization (principal); I47.2 Ventricular tachycardia; I10 Essential (primary) hypertension; Z72.0 Tobacco use; Z79.899 Other long term (current) drug therapy
CPT/HCPCS: 93623; 93662; 93654; 81025; C1894; C1769 ×2; C1730 ×3; C1759; C1732; J2250; J1200; J1644; J2405; J2001; J3010; J0131; J2704

== ENCOUNTER → 2018-08-18 | Outpatient (CLI) | payer BC ==
[2018-08-18 12:56] LABS: HCT 43.2 % (34.0-46.0); MCH 29.8 pg (25.0-35.0); MCHC 32.5 g/dL (31.0-37.0); MCV 91.7 fL (80.0-100.0); Mean Platelet Volume 6.7; Platelet Count 262 k/uL (150-450); RBC 4.71 m/uL (3.80-5.40); RDW 12.9 % (11.5-15.5); WBC 5.9 k/uL (3.8-10.6)
[2018-08-18 19:49] LABS: Thyroid Peroxidase Antibodies 28.5 U/mL (0.0-60.0)
[2018-08-18 19:52] LABS: Albumin 4.8 g/dL (3.80-4.90); Albumin/Globulin Ratio 2.4 (1.60-3.17); Anion Gap 11.8 mmol/L (4.00-12.00); Calcium 9.7 mg/dL (8.7-10.3); Carbon Dioxide 27.2 mmol/L (21.6-31.8); Potassium 4.2 mmol/L (3.5-5.5); Total Bilirubin 0.7 mg/dL (0.2-1.2); Total Protein 6.8 g/dL (6.2-8.2)
[2018-08-18 20:01] LABS: T4, Free (Free Thyroxine) 1.2 ng/dL (0.80-1.80)
== END | disposition home or self-care (01) ==
LOC: LABWHC1 12:35
PROVIDERS: ATTEND Internal Medicine Endocrinology, Diabetes & Metabolism
DX: R53.83 Other fatigue (principal)
CPT/HCPCS: 36415; 80053; 82024; 82533; 82607; 84146; 84439; 84443; 84481; 85027; 86376

== ENCOUNTER → 2018-09-02 | Outpatient (CLI) | payer BC ==
[2018-09-02 11:37] LABS: Basophils # (A) 0.1 k/uL (0-0.2); Basophils % (A) 1 %; Eosinophils # (A) 0.2 k/uL (0-0.7); Eosinophils % (A) 2 %; HCT 43.5 % (34.0-46.0); HGB 14.1 gm/dL (11.4-16.0); Lymphocytes # (A) 1.6 k/uL (1.0-4.8); Lymphocytes % (A) 24 %; MCH 29.8 pg (25.0-35.0); MCHC 32.4 g/dL (31.0-37.0); Mean Platelet Volume 6.9; Monocytes # (A) 0.4 k/uL (0-1.0); Monocytes % (A) 6 %; Neutrophils # (A) 4.2 k/uL (1.3-7.7); Neutrophils % (A) 64 %; Platelet Count 235 k/uL (150-450); RBC 4.72 m/uL (3.80-5.40); RDW 13.1 % (11.5-15.5); WBC 6.5 k/uL (3.8-10.6)
[2018-09-02 16:40] LABS: Albumin 4.8 g/dL (3.80-4.90); Albumin/Globulin Ratio 2.4 (1.60-3.17); Anion Gap 6.2 mmol/L (4.00-12.00); Calcium 9.3 mg/dL (8.7-10.3); Carbon Dioxide 28.8 mmol/L (21.6-31.8); Potassium 3.8 mmol/L (3.5-5.5); Total Bilirubin 0.8 mg/dL (0.3-1.2); Total Protein 6.8 g/dL (6.2-8.2)
== END | disposition home or self-care (01) ==
LOC: LABWHC1 10:56
PROVIDERS: ATTEND Internal Medicine
DX: R10.9 Unspecified abdominal pain (principal)
CPT/HCPCS: 36415; 80053; 83630; 85025; 87045; 87046; 87328; 87329

== ENCOUNTER → 2018-09-08 | Outpatient (CLI) | payer BC ==
--- NOTE | 2018-09-08 09:40 | NM ---
EXAMINATION TYPE: NM gastric emptying study DATE OF EXAM: 09/08/2018 COMPARISON: NONE HISTORY: Pain Following administration of 2.0 mCi Tc 99m Sulfur Colloid with 1 cup of oatmeal projection images of the abdomen were obtained 7 minutes post ingestion. When possible, both anterior and posterior projec tion images were obtained to allow the calculation of the geometric mean activity. Clearance: 39 % Half-life: 74 min Gastroesophagel reflux: None IMPRESSION: 1. No evidence of delayed gastric emptying. Gastric emptying normal percentage values: 30 minutes: <70% of retention (> 30% emptying) suggests abnormally fast emptying. 60 minutes: <90% retention (>10% emptying) is normal; less than 30% retention (>70% emptying) suggest s abnormally rapid empying. 90 minutes: <65% retention (> 35% emptying) is normal. 120 minutes: <60% retention (> 40% emptying) is normal. 180 minutes: <30% retention (> 70% emptying) is normal. Gastric emptying T-1/2: Solid: The normal range is 60-105 minutes Liquid only: Normal range is 10-45 minutes. Liquid only-children: At 60 minutes, normal range is 44-58 % . Liquid only-infants: At 60 minutes, normal range is 32-64 %. Additional references: Gastric Emptying Scintigraphy [email or web address]://[email or web address]
== END ==
LOC: RADNMMAIN 07:04
PROVIDERS: ATTEND Internal Medicine
DX: R11.2 Nausea with vomiting, unspecified (principal)
CPT/HCPCS: 78264; A9541

== ENCOUNTER → 2019-04-10 | Outpatient (CLI) | payer BC ==
--- NOTE | 2019-04-10 15:40 | US ---
EXAMINATION TYPE: US venous doppler duplex UE LT DATE OF EXAM: 04/10/2019 COMPARISON: US 2018 CLINICAL HISTORY: R93.8 Abnormal Findings. Reversed flow seen on previous ultrasound SIDE PERFORMED: Left Grayscale, color doppler, spectral doppler imaging performed of the deep veins of the upper extremiti es. Left Arm: Appears negative for DVT, internal echoes seen within IJV, as seen on previous ultrasound t here is reversed flow seen within IJV with patient laying completely flat, normal flow seen when tashia ent's head is elevated slightly. IMPRESSION: Findings are unchanged from 07/19/2017 with few internal echoes in the internal jugular ve in at the same location as the prior ultrasound and reverse flow in the internal jugular vein in the supine position. This case was previously discussed with the primary care physician and CT [employer] head and neck) performed on 07/23/2017.
== END | disposition home or self-care (01) ==
LOC: RADUSWWP 14:22
PROVIDERS: ATTEND Family Medicine
DX: R93.89 Abnormal findings on diagnostic imaging of other specified body structures (principal)

== ENCOUNTER 2019-11-30 07:04 | Day surgery (SDC) | payer BC ==
[2019-11-29 09:12] VITALS: BMI 24.5
[~2019-11-30 07:04] MED LIST changes: +LACTATED RINGERS 1,000 ML IV SCH; +LIDOCAINE 1% (10MG/ML) FOR IV START INTRADERMA PRN; -LIDOCAINE 1% 20 ML VIAL (10MG/ML) FOR IV START INTRADERMA PRN; -SODIUM CHLORIDE 0.9% 1,000 ML IV SCH
[2019-11-30 07:22] VITALS: RESP 16; TEMP 97.8
[2019-11-30] MEDS ORDERED: PROPOFOL 10 MG/ML 20 ML VIAL IV ONE (07:31)
--- NOTE | 2019-11-30 08:11 | P.PCN ---
Date of Procedure: 11/30/19 Description of Procedure: BRIEF HISTORY: Patient is a 44-year-old female presenting for outpatient colonoscopy for evaluation of altered bowel function. Patient reporting difficulty with bowel movements including loose frequent bowel movements. PROCEDURE PERFORMED: Colonoscopy with biopsy. PREOPERATIVE DIAGNOSIS: Altered bowel function. ESTIMATED BLOOD LOSS: Minimal. IV sedation per Anesthesia. PROCEDURE: After informed consent was obtained, the patient, was brought into the endoscopy unit. IV sedation was administered by Anesthesia under continuous monitoring. Digital rectal examination was normal. Initially the Olympus CF-190 flexible video colonoscope was then inserted in the rectum, gradually advanced into the cecum without any difficulty. Careful examination was performed as the scope was gradually being withdrawn. Ileocecal valve and the appendiceal orifice were visualized and appeared normal. Prep was excellent. Mucosa of the cecum, ascending colon, transverse colon, descending colon, sigmoid colon, and rectum appeared normal, with random biopsies taken of the right left colon in the setting of altered bowel function. The terminal ileum was intubated and appeared normal random biopsies taken. Retroflexion was performed in the rectum and no lesions were seen, low-grade internal hemorrhoids seen. The patient tolerated the procedure well. IMPRESSION: Normal-appearing colon from rectum to cecum and normal-appearing terminal ileum with random biopsies taken of the right colon, left colon and terminal ileum. RECOMMENDATIONS: Findings of this examination were discussed with the patient. Okay to resume diet. Okay to resume medications. Await pathology from biopsies. Follow up in gastroenterology clinic as previously scheduled for results of biopsies .
[2019-11-30 08:46] VITALS: BP 122/74; PULSE 66
== END 2019-11-30 09:06 | disposition home or self-care (01) ==
LOC: ORWHC2ENDO 07:04
PROVIDERS: ATTEND Internal Medicine
DX: K52.832 Lymphocytic colitis (principal); K64.8 Other hemorrhoids; F41.9 Anxiety disorder, unspecified; Z88.8 Allergy status to other drugs, medicaments and biological substances; Z90.710 Acquired absence of both cervix and uterus; Z79.899 Other long term (current) drug therapy; Z87.891 Personal history of nicotine dependence; Z98.890 Other specified postprocedural states; Z86.69 Personal history of other diseases of the nervous system and sense organs
CPT/HCPCS: 88305; 45380; J2704

== ENCOUNTER → 2020-03-26 | Outpatient (CLI) | payer BC | END | disposition home or self-care (01) | LOC: LABWHC1 15:10 | PROVIDERS: ATTEND Nurse Practitioner Family | DX: Z20.828 Contact with and (suspected) exposure to other viral communicable diseases (principal) | CPT/HCPCS: 87502; U0003; C9803 ==

== ENCOUNTER → 2022-03-10 | Outpatient (CLI) | payer BC ==
[2022-03-10 14:23] LABS: Basophils # (A) 0.08 X 10*3/uL (0.00-0.10); Basophils % (A) 1.4 %; Eosinophils # (A) 0.26 X 10*3/uL (0.04-0.35); Eosinophils % (A) 4.5 %; HCT 41.8 % (37.2-46.3); HGB 13.5 g/dL (12.0-15.0); Immature Grans, Automated 0.2 %; Lymphocytes # (A) 1.69 X 10*3/uL (0.90-5.00); MCH 29.7 pg (27.0-32.0); MCHC 32.3 g/dL (32.0-37.0); MCV 91.9 fL (80.0-97.0); Mean Platelet Volume 9.8 fL (9.5-12.2); Monocytes # (A) 0.53 X 10*3/uL (0.20-1.00); Monocytes % (A) 9.1 %; NRBC Per 100 WBC 0 /100 WBCS (0.0-0.0); Neutrophils # (A) 3.25 X 10*3/uL (1.80-7.70); Neutrophils % (A) 55.8 %; Platelet Count 229 X 10*3/uL (140-440); RBC 4.55 X 10*6/uL (4.10-5.20); RDW 12.6 % (11.5-14.5); WBC 5.82 X 10*3/uL (4.50-10.00)
[2022-03-10 15:12] LABS: ALT 19 U/L (8-44); AST 16 U/L (13-35); African American GFR (CKD) 122.1 (60.0-200.0); Albumin 4.3 g/dL (3.8-4.9); Albumin/Globulin Ratio 1.87 (1.60-3.17); Alkaline Phosphatase 74 U/L (41-126); Blood Urea Nitrogen 18.2 mg/dL (9.0-27.0); Calcium 9.3 mg/dL (8.7-10.3); Chloride 103 mmol/L (96-109); Chol/HDL Ratio 3.01 Ratio; Globulin 2.3 g/dL (1.6-3.3); Glucose 87 mg/dL (70-110); LDL Cholesterol,Calculated 111.9 mg/dL (0.0-131.0); Non-African American GFR(CKD) 105.4 (60.0-200.0); Potassium 4.2 mmol/L (3.5-5.5); Sodium 140 mmol/L (135-145); Total Protein 6.6 g/dL (6.2-8.2); VLDL Calculation 19.02 mg/dL (5.00-40.00)
== END | disposition home or self-care (01) ==
LOC: LABWHC1 08:24
PROVIDERS: ATTEND Family Medicine
DX: Z00.01 Encounter for general adult medical examination with abnormal findings (principal); Z13.220 Encounter for screening for lipoid disorders; Z12.31 Encounter for screening mammogram for malignant neoplasm of breast; J06.9 Acute upper respiratory infection, unspecified; R05.1 Acute cough; F41.1 Generalized anxiety disorder; G47.00 Insomnia, unspecified; J30.9 Allergic rhinitis, unspecified; E53.9 Vitamin B deficiency, unspecified; E55.9 Vitamin D deficiency, unspecified; K58.0 Irritable bowel syndrome with diarrhea
CPT/HCPCS: 36415; 80053; 80061; 82306; 82607; 84443; 85025

== ENCOUNTER → 2022-09-29 | Outpatient (CLI) | payer BC ==
--- NOTE | 2022-09-29 11:03 | US ---
EXAMINATION TYPE: US venous doppler duplex UE BI DATE OF EXAM: 09/29/2022 COMPARISON: NONE CLINICAL INDICATION: Female, 47 years old with history of I82.891; SIDE PERFORMED: Bilateral IJV, subclavian, axillary, brachial, basilic, cephalic, radial, and ulnar veins interrogated. Right Arm: Negative for DVT Left Arm: Negative for DVT IMPRESSION: No evidence of DVT upper extremities.
== END | disposition home or self-care (01) ==
LOC: RADUSWWP 09:36
PROVIDERS: ATTEND Family Medicine
DX: I82.891 Chronic embolism and thrombosis of other specified veins (principal)
CPT/HCPCS: 93970